=== PATIENT | male | born 1950 | race Caucasian/White ===

== ENCOUNTER 2017-02-20 21:30 | Inpatient (IN) | payer MEDICARE, MEDICAID ==
[2017-02-20] MEDS ORDERED: Sodium Chloride 0.9% 1,000 ML IV SCH ×2 (22:30→23:45)
--- NOTE | 2017-02-20 22:30 | EDM.PDOC ---
ED HPI GENERAL MEDICAL PROBLEM - General Chief Complaint: Syncope Stated Complaint: [facility] Time Seen by Provider: 02/20/17 22:30 Source of Information: Reports: Patient History Limitations: Reports: No Limitations - History of Present Illness INITIAL COMMENTS - FREE TEXT/NARRATIVE: pt had an episode when he became very liteheaded and he passed out and fell on the floor. He was not able to get up. Onset: Today, Other (pt was at the hosp earlier today for antibiotic therapy. ) Duration: Hour(s): Location: Reports: Lower Extremity, Left, Lower Extremity, Right Associated Symptoms: Reports: Syncope, Weakness Bilateral Feet Pain Score (Numeric/FACES): 3 - Related Data Allergies Allergy/AdvReac Type Severity Reaction Status Date / Time thimerosal Allergy Cannot Verified 02/20/17 22:57 Remember Home Meds: Home Meds Aspirin 1 tab PO DAILY 03/16/14 [History] Cilostazol [Pletal] 1 tab PO BID 03/16/14 [History] Insulin Glarg,Human.Rec.Analog [Lantus] 44 units SUBCUT DAILY 03/16/14 [History] Metoprolol Tartrate [Lopressor] 12.5 mg PO BID 03/16/14 [History] Pregabalin [Lyrica] 1 tab PO BID 03/16/14 [History] Valsartan [Diovan] 80 mg PO DAILY 03/16/14 [History] Ertapenem [INVanz] 1 gm IV Q24H 02/20/17 [History] Naproxen [Naprosyn] 500 mg PO BID 02/20/17 [History] Simvastatin [Zocor] 10 mg PO BEDTIME 02/20/17 [History] Past Medical History Cardiovascular History: Reports: Hypertension, [place], Other (See Below) Other Cardiovascular History: massive edema ankles Musculoskeletal History: Reports: Other (See Below) Other Musculoskeletal History: L leg trauma pto accident. ulcers on feet since 1995 Endocrine/Metabolic History: Reports: Diabetes, Type II Dermatologic History: Reports: Decubitus Ulcer, Venous Stasis Dermatitis, Other (See Below) Other Dermatologic History: ulcer debridement once a month with Dr Ko - Past Surgical History HEENT Surgical History: Reports: Adenoidectomy, Tonsillectomy Social & Family History - Tobacco Use Smoking Status *Q: Never Smoker Second Hand Smoke Exposure: No - Caffeine Use Caffeine Use: Reports: Soda - Alcohol Use Days Per Week of Alcohol Use: 0 - Recreational Drug Use Recreational Drug Use: No ED ROS GENERAL - Review of Systems Review Of Systems: See Below Constitutional: Reports: Weakness, Other (pt had a near syncopal episode. ) HEENT: Reports: No Symptoms Respiratory: Reports: No Symptoms Cardiovascular: Reports: No Symptoms, Lightheadedness, Syncope Endocrine: Reports: No Symptoms GI/Abdominal: Reports: No Symptoms : Reports: No Symptoms Musculoskeletal: Reports: No Symptoms Skin: Reports: No Symptoms Neurological: Reports: Syncope Psychiatric: Reports: No Symptoms Hematologic/Lymphatic: Reports: Anemia - Physical Exam Exam: See Below Text/Narrative:: Pt is a pale appearing pt who had a near syncopal episode at home. He was found to have a low pressure when ems arrived. He has alot of large ulcers on the bottom of his feet worse on the rt. These have recently gotten alot worse. He is on Iv Invance and has received 2 doses. Exam Limited By: No Limitations General Appearance: Alert, Moderate Distress, Other ( very pale appearing. pupils are equal and reactive. ) Ears: Normal TMs Nose: Normal Inspection Throat/Mouth: Normal Inspection Head Exam: Atraumatic Neck: Normal Inspection Respiratory/Chest: No Respiratory Distress Cardiovascular: Regular Rate, Rhythm, Tachycardia GI/Abdominal: Soft, Non-Tender (Male) Exam: Deferred Rectal (Males) Exam: Deferred Neuro Exam (Abbreviated): Alert, Oriented, Normal Cognition Back Exam: Normal Inspection Extremities: No: Other (Pt has multipleulcers on the bottom of both feet. ) Course - Vital Signs Last Recorded V/S: Last Vital Signs Temp 37.3 C 02/22/17 00:00 Pulse 99 02/22/17 00:00 Resp 18 02/22/17 00:00 BP 149/63 H 02/22/17 00:00 Pulse Ox 96 02/22/17 00:00 - Orders/Labs/Meds Orders: Medication Orders Acetaminophen (Tylenol) 650 mg PO Q4H PRN PRN Reason: Pain (Mild 1-3)/fever Aspirin (Ecotrin) 325 mg PO DAILY [facility] Last Admin: 02/21/17 09:16 Dose: 325 mg Bacitracin (Bacitracin Oint 1 Gm) 1 dose TOP BID PRN PRN Reason: Wound Care Last Admin: 02/21/17 20:03 Dose: 1 dose Admin: 02/21/17 09:22 Dose: 1 dose Cilostazol (Pletal) 100 mg PO BID [facility] Last Admin: 02/21/17 20:55 Dose: 100 mg Admin: 02/21/17 09:16 Dose: 100 mg Dextrose (Glutose 15) 15 gm PO ONETIME PRN PRN Reason: Hypoglycemia Dextrose/Water (Dextrose 50% In Water) 50 ml IV ONETIME PRN PRN Reason: Hypoglycemia Docusate Sodium (Colace) 100 mg PO BID PRN PRN Reason: Constipation Heparin Sodium (Porcine) (Heparin Sodium) 5,000 units SUBCUT Q12H [facility] Last Admin: 02/21/17 20:56 Dose: 5,000 units Heparin Sodium (Porcine) (Heparin Lock Flush 100 Units/Ml) 500 units FLUSH ASDIRECTED PRN PRN Reason: Keep Vein Open Aztreonam 500 mg/ Sodium (Chloride) 50 mls @ 100 mls/hr IV Q8H [facility] Last Admin: 02/22/17 01:16 Dose: 100 mls/hr Admin: 02/21/17 16:47 Dose: 100 mls/hr Admin: 02/21/17 09:36 Dose: 100 mls/hr Levofloxacin/Dextrose 250 mg/ (Premix) 50 mls @ 50 mls/hr IV Q48H [facility] Sodium Chloride (Normal Saline) 1,000 mls @ 125 mls/hr IV ASDIRECTED [facility] Last Admin: 02/22/17 00:43 Dose: 125 mls/hr Infusion: 02/22/17 00:34 Dose: 125 mls/hr Admin: 02/21/17 16:34 Dose: 125 mls/hr Infusion: 02/21/17 12:42 Dose: 125 mls/hr Admin: 02/21/17 04:42 Dose: 125 mls/hr Insulin Aspart (Novolog) 0 unit SUBCUT QIDACANDBED [facility] PRN Reason: Protocol Last Admin: 02/21/17 20:55 Dose: Not Given Admin: 02/21/17 16:40 Dose: Not Given Admin: 02/21/17 12:30 Dose: Not Given Admin: 02/21/17 08:29 Dose: Not Given Insulin Detemir (Levemir) 44 unit SUBCUT DAILY [facility] Last Admin: 02/21/17 09:17 Dose: 44 units Magnesium Hydroxide (Milk Of Magnesia) 30 ml PO Q12H PRN PRN Reason: Constipation Metoprolol Tartrate (Lopressor) 12.5 mg PO DAILY [facility] Last Admin: 02/21/17 09:16 Dose: 12.5 mg Ondansetron HCl (Zofran) 4 mg IV Q4H PRN PRN Reason: Nausea/Vomiting Oxycodone HCl (Oxycodone) 5 mg PO Q4H PRN PRN Reason: Pain (moderate 4-6) Polyethylene Glycol (Miralax) 17 gm PO DAILY PRN PRN Reason: Constipation Pregabalin (Lyrica) 75 mg PO DAILY [facility] Last Admin: 02/21/17 09:17 Dose: 75 mg Simvastatin (Zocor) 10 mg PO BEDTIME [facility] Last Admin: 02/21/17 20:55 Dose: 10 mg Sodium Chloride (Saline Flush) 10 ml FLUSH ASDIRECTED PRN PRN Reason: Keep Vein Open Labs: Laboratory Tests 02/20/17 02/20/17 02/20/17 Range/Units 22:24 22:24 22:29 WBC 14.9 H (4.5-11.0) K/uL RBC 2.67 L (4.30-5.90) M/uL Hgb 7.0 L (12.0-15.0) g/dL Hct 22.6 L (40.0-54.0) % MCV 85 (80-98) fL MCH 26 L (27-31) pg MCHC 31 L (32-36) % Plt Count 309 (150-400) K/uL Add Manual Diff Yes Neutrophils % (Manual) 82 H (36-66) % Band Neutrophils % 9 (5-11) % Lymphocytes % (Manual) 4 L (24-44) % Monocytes % (Manual) 5 (2-6) % Sodium 138 L (140-148) mmol/L Potassium 4.3 (3.6-5.2) mmol/L Chloride 107 (100-108) mmol/L Carbon Dioxide 20 L (21-32) mmol/L Anion Gap 15.3 H (5.0-14.0) mmol/L BUN 53 H (7-18) mg/dL Creatinine 5.5 H* (0.8-1.3) mg/dL Est Cr Clr Drug Dosing 14.89 mL/min Estimated GFR (MDRD) 11 L (>60) Glucose 241 H (74-106) mg/dL Lactic Acid 1.3 (0.4-2.0) mmol/L Calcium 7.3 L (8.5-10.1) mg/dL Total Bilirubin 1.1 H (0.2-1.0) mg/dL AST 20 (15-37) U/L ALT 9 L (12-78) U/L Alkaline Phosphatase 156 H (46-116) U/L Total Protein 7.6 (6.4-8.2) g/dL Albumin 1.5 L (3.4-5.0) g/dL Globulin 6.1 H (2.3-3.5) g/dL Albumin/Globulin Ratio 0.3 L (1.2-2.2) Blood Type Gel Antibody Screen Crossmatch 02/20/17 Range/Units 22:50 WBC (4.5-11.0) K/uL RBC (4.30-5.90) M/uL Hgb (12.0-15.0) g/dL Hct (40.0-54.0) % MCV (80-98) fL MCH (27-31) pg MCHC (32-36) % Plt Count (150-400) K/uL Add Manual Diff Neutrophils % (Manual) (36-66) % Band Neutrophils % (5-11) % Lymphocytes % (Manual) (24-44) % Monocytes % (Manual) (2-6) % Sodium (140-148) mmol/L Potassium (3.6-5.2) mmol/L Chloride (100-108) mmol/L Carbon Dioxide (21-32) mmol/L Anion Gap (5.0-14.0) mmol/L BUN (7-18) mg/dL Creatinine (0.8-1.3) mg/dL Est Cr Clr Drug Dosing mL/min Estimated GFR (MDRD) (>60) Glucose (74-106) mg/dL Lactic Acid (0.4-2.0) mmol/L Calcium (8.5-10.1) mg/dL Total Bilirubin (0.2-1.0) mg/dL AST (15-37) U/L ALT (12-78) U/L Alkaline Phosphatase (46-116) U/L Total Protein (6.4-8.2) g/dL Albumin (3.4-5.0) g/dL Globulin (2.3-3.5) g/dL Albumin/Globulin Ratio (1.2-2.2) Blood Type O POSITIVE Gel Antibody Screen Negative Crossmatch See Detail Meds: Medications Generic Name Dose Route Start Last Admin Trade Name Freq PRN Reason Stop Dose Admin Acetaminophen 650 mg 02/21/17 00:33 Tylenol PO Q4H PRN Pain (Mild 1-3)/fever Aspirin 325 mg 02/21/17 09:00 02/21/17 09:16 Ecotrin PO 325 mg DAILY [facility] Administration Bacitracin 1 dose 02/21/17 08:36 02/21/17 20:03 Bacitracin Oint 1 Gm TOP 1 dose BID PRN Administration Wound Care Cilostazol 100 mg 02/21/17 09:00 02/21/17 20:55 Pletal PO 100 mg BID [facility] Administration Dextrose 15 gm 02/21/17 00:33 Glutose 15 PO ONETIME PRN Hypoglycemia Dextrose/Water 50 ml 02/21/17 00:33 Dextrose 50% In Water IV ONETIME PRN Hypoglycemia Docusate Sodium 100 mg 02/21/17 00:33 Colace PO BID PRN Constipation Heparin Sodium (Porcine) 5,000 units 02/21/17 21:00 02/21/17 20:56 Heparin Sodium SUBCUT 5,000 units Q12H [facility] Administration Heparin Sodium (Porcine) 500 units 02/21/17 12:43 Heparin Lock Flush 100 Units/Ml FLUSH ASDIRECTED PRN Keep Vein Open Aztreonam 500 mg/ Sodium 50 mls @ 100 mls/hr 02/21/17 09:00 02/22/17 01:16 Chloride IV 100 mls/hr Q8H [facility] Administration Levofloxacin/Dextrose 250 mg/ 50 mls @ 50 mls/hr 02/23/17 00:30 Premix IV Q48H [facility] Sodium Chloride 1,000 mls @ 125 mls/hr 02/21/17 00:33 02/22/17 00:43 Normal Saline IV 125 mls/hr ASDIRECTED [facility] Administration Insulin Aspart 0 unit 02/21/17 07:00 02/21/17 20:55 Novolog SUBCUT Not Given QIDACANDBED [facility] Protocol Insulin Detemir 44 unit 02/21/17 09:00 02/21/17 09:17 Levemir SUBCUT 44 units DAILY [facility] Administration Magnesium Hydroxide 30 ml 02/21/17 00:33 Milk Of Magnesia PO Q12H PRN Constipation Metoprolol Tartrate 12.5 mg 02/21/17 09:00 02/21/17 09:16 Lopressor PO 12.5 mg DAILY [facility] Administration Ondansetron HCl 4 mg 02/21/17 00:33 Zofran IV Q4H PRN Nausea/Vomiting Oxycodone HCl 5 mg 02/21/17 00:33 Oxycodone PO Q4H PRN Pain (moderate 4-6) Polyethylene Glycol 17 gm 02/21/17 00:33 Miralax PO DAILY PRN Constipation Pregabalin 75 mg 02/21/17 09:00 02/21/17 09:17 Lyrica PO 75 mg DAILY [facility] Administration Simvastatin 10 mg 02/21/17 21:00 02/21/17 20:55 Zocor PO 10 mg BEDTIME [facility] Administration Sodium Chloride 10 ml 02/21/17 00:33 Saline Flush FLUSH ASDIRECTED PRN Keep Vein Open Discontinued Medications Generic Name Dose Route Start Last Admin Trade Name Freq PRN Reason Stop Dose Admin Heparin Sodium (Porcine) Confirm 02/21/17 11:21 02/21/17 13:19 Heparin Lock Flush 100 Units/Ml Administered 02/21/17 11:22 Not Given Dose 500 units .ROUTE .STK-MED ONE Sodium Chloride 1,000 mls @ 999 mls/hr 02/20/17 22:30 02/20/17 22:38 Normal Saline IV 999 mls/hr ASDIRECTED [facility] Administration Sodium Chloride 1,000 mls @ 500 mls/hr 02/20/17 23:45 02/20/17 23:41 Normal Saline IV 500 mls/hr ASDIRECTED [facility] Administration Aztreonam 1 gm/ Sodium 50 mls @ 100 mls/hr 02/21/17 00:33 02/21/17 01:13 Chloride IV 02/21/17 01:02 100 mls/hr ONETIME ONE Administration Levofloxacin/Dextrose 500 mg/ 100 mls @ 100 mls/hr 02/21/17 00:33 02/21/17 01 :51 Premix IV 02/21/17 01:32 100 mls/hr ONETIME ONE Administration Vancomycin HCl 1.5 gm/ Sodium 250 mls @ 166.667 mls/hr 02/21/17 01:00 02:56 Chloride IV 02/21/17 02:29 166.667 mls/hr NOW ONE Administration Magnesium Sulfate 2 gm/ Premix 50 mls @ 25 mls/hr 02/21/17 10:00 02/21/17 21: 59 IV 02/21/17 23:59 25 mls/hr Q6H [facility] Administration Lidocaine HCl Confirm 02/21/17 02:06 02/21/17 03:02 Xylocaine 2% Jelly Administered 02/21/17 02:07 10 ml Dose Administration 10 ml .ROUTE .STK-MED ONE Pregabalin 200 mg 02/21/17 09:00 Lyrica PO BID [facility] Vancomycin HCl 0 gm 02/21/17 01:00 Vancomycin IV .PHARMACY TO DOSE [facility] - Re-Assessments/Exams Free Text/Narrative Re-Assessment/Exam: 02/20/17 23:04 Pt had a creatine of 1.6 in November and it is now 5.5. His GFR is 11. He has a normal lactic acid. He was hypotensive today and had a near syncopal episode. He is anemic with a hg of 7/ Departure - Departure Time of Disposition: 23:06 Disposition: Admitted As Inpatient 68 Condition: Poor Clinical Impression: Sepsis, Foot ulcer with fat layer exposed, Renal insufficiency, Anemia - Discharge Information
[2017-02-21] MEDS ORDERED: Polyethylene Glycol 3350 Powder 17 GM Packet PO PRN (00:33)
[2017-02-21] MEDS ORDERED: Magnesium Hydroxide 400 MG/5 ML Susp 30 ML Cup PO PRN (00:33)
[2017-02-21] MEDS ORDERED: Docusate Sodium 100 MG Cap PO PRN (00:33)
[2017-02-21] MEDS ORDERED: oxyCODONE 5 MG Tab PO PRN (00:33)
[2017-02-21] MEDS ORDERED: Sodium Chloride 0.9% 10 ML Syringe FLUSH PRN (00:33)
[2017-02-21] MEDS ORDERED: 50% Dextrose in Water 50 ML Syringe IV PRN (00:33)
[2017-02-21] MEDS ORDERED: Levofloxacin/Dextrose 5%-Water 500 MG in Premix Bag 1 BAG IV ONE (00:33)
[2017-02-21] MEDS ORDERED: Glucose Gel 15 GM in 37.5 GM Tube PO PRN (00:33)
[2017-02-21] MEDS ORDERED: Ondansetron 4 MG/2 ML SDV IV PRN (00:33)
[2017-02-21] MEDS ORDERED: Acetaminophen 325 MG Tab PO PRN (00:33)
--- NOTE | 2017-02-21 00:38 | PCM.HP ---
H&P History of Present Illness - General Date of Service: 02/21/17 Admit Problem/Dx: Admission Diagnosis/Problem Admission Diagnosis/Problem Foot infection Source of Information: Patient, Old Records, Provider, RN Notes Reviewed History Limitations: Reports: No Limitations - History of Present Illness Initial Comments - Free Text/Narative: Mr. Butts is a 66-year-old gentleman was admitted through the emergency department with sepsis secondary to diabetic foot infection of his left foot. He is had a long-standing history of ulcers on both feet as well as a long- standing history of diabetes. He developed a new ulcer in the midportion of his left foot and has noted increased pain in the foot. He was seen and evaluated earlier in the week by Dr. Ko and since then has been receiving IV antibiotic therapy with ertapenem once daily as an outpatient. Despite this intervention has become progressively more weak and lightheaded. He denies fevers or chills but has had regular sweats. He came in today for his IV antibiotic infusion, after he got home became very weak and lightheaded passing out and falling to the floor. He was unable to get up from the floor and ambulance was called and he was brought to the emergency department for evaluation. On initial evaluation by ambulance crew he was found to be hypotensive, IV was started and he was given IV fluids. When he arrived in the emergency department had borderline blood pressure and has received further fluid since then with good response of blood pressure. Evaluation in the emergency department is shown evidence of infection in the foot with elevated white blood cell count. He's been found to be severely anemic with a hemoglobin of 7. Also found to have evidence of acute kidney injury with a creatinine of 5.5 and a GFR of 11. At baseline he has stage III chronic kidney disease based on most recent creatinine available from this summer. He reports that he did have a CT scan with IV contrast earlier this month and since then his urine output has diminished. He denies any evidence of active GI bleeding or urinary bleeding. He has been taking nonsteroidal therapy twice daily. - Related Data Allergies/Adverse Reactions: Allergies Allergy/AdvReac Type Severity Reaction Status Date / Time thimerosal Allergy Cannot Verified 02/20/17 22:57 Remember Home Medications: Home Meds Aspirin 1 tab PO DAILY 03/16/14 [History] Cilostazol [Pletal] 1 tab PO BID 03/16/14 [History] Insulin Glarg,Human.Rec.Analog [Lantus] 44 units SUBCUT DAILY 03/16/14 [History] Metoprolol Tartrate [Lopressor] 12.5 mg PO DAILY 03/16/14 [History] Pregabalin [Lyrica] 1 tab PO BID 03/16/14 [History] Valsartan [Diovan] 80 mg PO DAILY 03/16/14 [History] Ertapenem [INVanz] 1 gm IV Q24H 02/20/17 [History] Naproxen [Naprosyn] 500 mg PO BID 02/20/17 [History] Simvastatin [Zocor] 10 mg PO BEDTIME 02/20/17 [History] Past Medical History Cardiovascular History: Reports: Hypertension, [place], Other (See Below) Other Cardiovascular History: massive edema ankles Musculoskeletal History: Reports: Other (See Below) Other Musculoskeletal History: L leg trauma pto accident. ulcers on feet since 1995 Endocrine/Metabolic History: Reports: Diabetes, Type II Dermatologic History: Reports: Decubitus Ulcer, Venous Stasis Dermatitis, Other (See Below) Other Dermatologic History: ulcer debridement once a month with Dr Ko - Past Surgical History HEENT Surgical History: Reports: Adenoidectomy, Tonsillectomy Social & Family History - Tobacco Use Smoking Status *Q: Never Smoker Second Hand Smoke Exposure: No - Caffeine Use Caffeine Use: Reports: Soda - Alcohol Use Days Per Week of Alcohol Use: 0 - Recreational Drug Use Recreational Drug Use: No H&P Review of Systems - Review of Systems: Review Of Systems: See Below General: Reports: Weakness, Diaphoresis. Denies: Fever, Chills HEENT: Reports: No Symptoms Pulmonary: Reports: No Symptoms Cardiovascular: Reports: No Symptoms Gastrointestinal: Reports: No Symptoms Genitourinary: Reports: No Symptoms Musculoskeletal: Reports: No Symptoms Skin: Reports: Other (Diabetic foot ulcers both lower extremities) Psychiatric: Reports: No Symptoms Neurological: Reports: No Symptoms Hematologic/Lymphatic: Reports: No Symptoms Immunologic: Reports: No Symptoms Exam - Exam Exam: See Below - Vital Signs Vital Signs: Last Vital Signs Temp 98.8 F 02/20/17 21:33 Pulse 101 H 02/21/17 00:30 Resp 16 02/21/17 00:30 BP 139/73 02/21/17 00:30 Pulse Ox 100 02/21/17 00:30 Weight: 274 lb - Exam Quality Assessment: DVT Prophylaxis General: Alert, Cooperative, Mild Distress HEENT: Conjunctiva Clear, Hearing Intact, Normal Nasal Septum, Posterior Pharynx Clear, Pupils Equal. No: Mucosa Moist & [place] Neck: Supple, Trachea Midline, +2 Carotid Pulse wo Bruit Lungs: Clear to Auscultation, Normal Respiratory Effort Cardiovascular: Regular Rate, Regular Rhythm, Normal S1, Normal S2. No: Systolic Murmur, Diastolic Murmur GI/Abdominal Exam: Normal Bowel Sounds, Soft, Non-Tender, No Distention Back Exam: Normal Inspection, Full Range of Motion Extremities: Pedal Edema, Increased Warmth (Left foot), Redness, Other (At least 4 large ulcerations on the plantar aspect left foot he is sloughing skin from the posterior aspect of the foot and ankle. One ulcer noted plantar aspect of the right foot) - Patient Data Result Diagrams: 02/20/17 22:24 02/20/17 22:24 *Q Meaningful Use (ADM) - VTE *Q VTE Criteria *Q: VTE Mechanical Contraindications *Q: Bilateral Lower Edema VTE Pharmacological Contraindications *Q: Patient Scheduled Surgery - VTE Risk Assess *Q Each Risk Factor Represents 1 Point: Swollen Legs, Current, Obesity (BMI greater than 30), Sepsis, Less than 1 Month Total Score 1 Point Risk Factors: 3 Each Risk Factor Represents 2 Points: Age 60 - 74 Years Total Score 2 Point Risk Factors: 2 Each Risk Factor Represents 3 Points: None Total Score 3 Point Risk Factors: 0 Each Risk Factor Represents 5 Points: None Total Score 5 Point Risk Factors: 0 Venous Thromboembolism Risk Factor Score *Q: 5 - Stroke *Q Stroke Criteria *Q: - AMI *Q AMI Criteria *Q: Problem List Initiated/Reviewed/Updated: Yes Orders Last 24hrs: Active Orders 24 hr Category Date Time Status Patient Status [ADT] Routine ADT 02/21/17 00:33 Ordered Blood Glucose Check, Bedside [RC] QIDACANDBED Care 02/21/17 00:33 Active Cardiac Monitoring [RC] .As Directed Care 02/21/17 00:33 Active Communication Order [RC] ASDIRECTED Care 02/21/17 00:33 Active Diabetes Education [RC] Click to Edit Care 02/21/17 00:33 Active Intake and Output [RC] QSHIFT Care 02/21/17 00:33 Ordered Notify Provider Consults [RC] ASDIRECTED Care 02/21/17 00:33 Ordered Notify Provider Vital Signs [RC] ASDIRECTED Care 02/21/17 00:33 Ordered Notify Provider [RC] PRN Care 02/21/17 00:33 Ordered Oxygen Therapy [RC] PRN Care 02/21/17 00:33 Ordered Peripheral IV Care [RC] . DIRECTED Care 02/21/17 00:33 Ordered Up With Assistance [RC] ASDIRECTED Care 02/21/17 00:33 Ordered Up to Chair [RC] QID Care 02/21/17 00:33 Ordered Consult to Physician [CONS] Routine Cons 02/21/17 08:00 Ordered Nothing per Oral After Midnight Diet [DIET] Diet 02/21/17 Breakfast Ordered Foot wo Cont Lt [MR] Stat Exams 02/21/17 08:00 Ordered Peripheral IV Insertion Adult [OM.PC] Routine Oth 02/21/17 00:33 Ordered Resuscitation Status Routine Resus Stat 02/21/17 00:13 Ordered Assessment/Plan Comment:: ASSESSMENT AND PLAN DIABETIC INFECTION LEFT FOOT WITH SEPSIS-over the past few days is become progressively more weak and experienced a syncopal episode today. Initially hypotensive but has responded to IV fluid infusion. Multiple ulcers on the plantar aspect the left foot skin over the posterior aspect of the foot which is being sloughed. -Discontinue Invanz -Blood cultures pending -IV fluids for support of blood pressure and sepsis, he will be getting blood tonight and will hold on sepsis protocol now that blood pressure has stabilized and also in light of his acute kidney injury with minimal urine output -IV antibiotic therapy including vancomycin pharmacy to dose, levofloxacin 500 mg IV now then 250 mg every 48 hours, aztreonam 1 g IV now then 500 mg IV every 8 hours -Consult Dr. Ko for surgical opinion in a.m. -MRI of the left foot without contrast to evaluate for osteomyelitis ACUTE KIDNEY INJURY-he has known chronic kidney disease stage III as of last available creatinine and GFR earlier this summer. He reports his urine output has been diminished since he received contrast for CT scan in January. He has been taking nonsteroidal therapy with naproxen twice daily. -Hold naproxen and valsartan -Closely monitor urine output with Lopez catheter -Repeat labs in a.m. -If renal function does not improve he may require transfer to a tertiary care center ANEMIA-likely secondary to chronic disease, he denies any evidence of recent GI or blood loss. -2 units of blood are available -Transfuse 1 unit of blood now -Repeat hemoglobin level in a.m. MAINTENANCE ISSUES -DVT prophylaxis; hold on SCUDs because of edema and infection, hold on Lovenox pending surgical review -GI prophylaxis; not indicated -Lopez catheter; to closely monitor urine output -Nutrition; nothing by mouth until seen by Dr. Ko -Nicotine dependence; not required CODE STATUS-FULL CODE ADMISSION STATUS-patient will be admitted to inpatient status, expect at least a 2 night hospital stay for evaluation and management of problems as outlined above. At the time of this admission I do not reasonably expected evaluation and management of this problem will require more than a 96 hour hospital stay. DISPOSITION-anticipate discharge to home after the hospital stay. PRIMARY CARE PROVIDER-
[2017-02-21] MEDS ORDERED: Vancomycin 1 GM SDV IV SCH (01:00)
[2017-02-21] MEDS ORDERED: Lidocaine 2% Jelly 10 ML Urojet ONE (02:06)
[2017-02-21] MEDS: Sodium Chloride 0.9% 1,000 ML IV SCH ×2 (04:42→16:34)
[2017-02-21] MEDS: Insulin Aspart 100 Units/ML 3 ML Pen SUBCUT SCH ×4 (08:29→20:55)
[2017-02-21] MEDS ORDERED: Pregabalin 100 MG Cap PO SCH (09:00)
[2017-02-21] MEDS ORDERED: Insulin Detemir 100 Units/ML 3 ML Pen SUBCUT SCH ×2 (09:00)
--- NOTE | 2017-02-21 09:03 | PCM.PN ---
- General Info Date of Service: 02/21/17 Functional Status: Reports: Pain Controlled - Review of Systems General: Reports: Weakness. Denies: Fever Pulmonary: Denies: Shortness of Breath Musculoskeletal: Denies: Leg Pain Systems Review Comment:: No acute events overnight. Little bit sleepy but otherwise stable. Blood pressures have normalized and are even moderately hypertensive today. Hemoglobin is a little better with transfusion. He has not had any high fevers. Creatinine only mildly improved from yesterday down to 5.1. GFR is unchanged. Urine output has been greater than 30 mL per hour. No significant pain issues. Or extremity wound evaluated by Dr. Ko this morning. - Patient Data Vitals - Most Recent: Last Vital Signs Temp 36.4 C 02/21/17 08:00 Pulse 98 02/21/17 06:00 Resp 20 02/21/17 08:00 BP 151/70 H 02/21/17 08:00 Pulse Ox 96 02/21/17 08:00 Weight - Most Recent: 124.284 kg I&O - Last 24 Hours: Intake & Output 02/20/17 02/21/17 02/21/17 22:59 06:59 14:59 Intake Total 1536 Output Total 850 Balance 686 Lab Results Last 24 Hours: Laboratory Results - last 24 hr 02/21/17 02/21/17 02/21/17 Range/Units 02:40 05:11 05:11 WBC 13.2 H (4.5-11.0) K/uL RBC 2.76 L (4.30-5.90) M/uL Hgb 7.5 L (12.0-15.0) g/dL Hct 23.4 L (40.0-54.0) % MCV 85 (80-98) fL MCH 27 (27-31) pg MCHC 32 (32-36) % Plt Count 299 (150-400) K/uL Neut % (Auto) 75 H (36-66) % Lymph % (Auto) 13 L (24-44) % [place] % (Auto) 11 H (2-6) % Eos % (Auto) 1 L (2-4) % Baso % (Auto) 0 (0-1) % Sodium 139 L (140-148) mmol/L Potassium 4.3 (3.6-5.2) mmol/L Chloride 109 H (100-108) mmol/L Carbon Dioxide 21 (21-32) mmol/L Anion Gap 13.3 (5.0-14.0) mmol/L BUN 52 H (7-18) mg/dL Creatinine 5.1 H* (0.8-1.3) mg/dL Est Cr Clr Drug Dosing TNP Estimated GFR (MDRD) 11 L (>60) Glucose 175 H (74-106) mg/dL Calcium 7.1 L (8.5-10.1) mg/dL Magnesium 1.1 L (1.8-2.4) mg/dL Urine Color Yellow Urine Appearance Cloudy Urine pH 5.0 (4.5-8.0) Ur Specific Emerson 1.020 (1.008-1.030) Urine Protein Trace (NEGATIVE) mg/dL Urine Glucose (UA) Normal (NEGATIVE) mg/dL Urine Ketones Negative (NEGATIVE) mg/dL Urine Occult Blood Moderate (NEGATIVE) Urine Nitrite Negative (NEGAITVE) Urine Bilirubin Small (NEGATIVE) Urine Urobilinogen 1 (NORMAL) mg/dL Ur Leukocyte Esterase Negative (NEGATIVE) Urine RBC 5-10 H (0-5) Urine WBC 0-5 (0-5) Ur Epithelial Cells Few Amorphous Sediment Many Urine Bacteria Many Urine Mucus Not seen Med Orders - Current: Current Medications Acetaminophen (Tylenol) 650 mg PO Q4H PRN PRN Reason: Pain (Mild 1-3)/fever Aspirin (Ecotrin) 325 mg PO DAILY [facility] Bacitracin (Bacitracin Oint 1 Gm) 1 dose TOP BID PRN PRN Reason: Wound Care Cilostazol (Pletal) 100 mg PO BID [facility] Dextrose (Glutose 15) 15 gm PO ONETIME PRN PRN Reason: Hypoglycemia Dextrose/Water (Dextrose 50% In Water) 50 ml IV ONETIME PRN PRN Reason: Hypoglycemia Docusate Sodium (Colace) 100 mg PO BID PRN PRN Reason: Constipation Aztreonam 500 mg/ Sodium (Chloride) 50 mls @ 100 mls/hr IV Q8H [facility] Levofloxacin/Dextrose 250 mg/ (Premix) 50 mls @ 50 mls/hr IV Q48H [facility] Sodium Chloride (Normal Saline) 1,000 mls @ 125 mls/hr IV ASDIRECTED [facility] Last Admin: 02/21/17 04:42 Dose: 125 mls/hr Magnesium Sulfate 2 gm/ Premix 50 mls @ 25 mls/hr IV Q6H [facility] Stop: 02/21/17 23:59 Insulin Aspart (Novolog) 0 unit SUBCUT QIDACANDBED ALEXIA PRN Reason: Protocol Last Admin: 02/21/17 08:29 Dose: Not Given Insulin Detemir (Levemir) 44 unit SUBCUT DAILY [facility] Magnesium Hydroxide (Milk Of Magnesia) 30 ml PO Q12H PRN PRN Reason: Constipation Metoprolol Tartrate (Lopressor) 12.5 mg PO DAILY [facility] Ondansetron HCl (Zofran) 4 mg IV Q4H PRN PRN Reason: Nausea/Vomiting Oxycodone HCl (Oxycodone) 5 mg PO Q4H PRN PRN Reason: Pain (moderate 4-6) Polyethylene Glycol (Miralax) 17 gm PO DAILY PRN PRN Reason: Constipation Pregabalin (Lyrica) 75 mg PO DAILY [facility] Simvastatin (Zocor) 10 mg PO BEDTIME [facility] Sodium Chloride (Saline Flush) 10 ml FLUSH ASDIRECTED PRN PRN Reason: Keep Vein Open Discontinued Medications Sodium Chloride (Normal Saline) 1,000 mls @ 999 mls/hr IV ASDIRECTED [facility] Last Admin: 02/20/17 22:38 Dose: 999 mls/hr Sodium Chloride (Normal Saline) 1,000 mls @ 500 mls/hr IV ASDIRECTED [facility] Last Admin: 02/20/17 23:41 Dose: 500 mls/hr Aztreonam 1 gm/ Sodium (Chloride) 50 mls @ 100 mls/hr IV ONETIME ONE Stop: 02/21/17 01:02 Last Admin: 02/21/17 01:13 Dose: 100 mls/hr Levofloxacin/Dextrose 500 mg/ (Premix) 100 mls @ 100 mls/hr IV ONETIME ONE Stop: 02/21/17 01:32 Last Admin: 02/21/17 01:51 Dose: 100 mls/hr Vancomycin HCl 1.5 gm/ Sodium (Chloride) 250 mls @ 166.667 mls/hr IV NOW ONE Stop: 02/21/17 02:29 Last Admin: 02/21/17 02:56 Dose: 166.667 mls/hr Lidocaine HCl (Xylocaine 2% Jelly) Confirm Administered Dose 10 ml .ROUTE .[facility] ONE Stop: 02/21/17 02:07 Last Admin: 02/21/17 03:02 Dose: 10 ml Pregabalin (Lyrica) 200 mg PO BID ALEXIA Vancomycin HCl (Vancomycin) 0 gm IV .PHARMACY TO DOSE ALEXIA - Exam Quality Assessment: No: Supplemental Oxygen General: Alert, Oriented, Cooperative, No Acute Distress Neck: Supple Lungs: Clear to Auscultation, Normal Respiratory Effort Cardiovascular: Regular Rate, Regular Rhythm, Murmurs GI/Abdominal Exam: Normal Bowel Sounds, Soft, No Distention Extremities: Pedal Edema, Other (large ulcerated area left plantar surface. Right foot wrapped with kerlix, mild ss drainage noted posteromedially) Skin: Warm, Dry, Other (both lower legs with ichthyosis ) Psy/Mental Status: Alert, Normal Affect - Problem List Review Problem List Initiated/Reviewed/Updated: Yes - My Orders Last 24 Hours: My Active Orders 02/21/17 08:22 CV Ankle Brachial Index (JOSIANE) [US] Routine 02/21/17 08:25 VL Duplex Lwr Ext Art Comp Bi [US] Routine 02/21/17 09:00 Pregabalin [Lyrica] 75 mg PO DAILY 02/21/17 10:00 Magnesium Sulfate/Water [Magnesium Sulfate 2 GM in Water 50 ML] 2 gm Premix Bag 1 bag IV Q6H 02/21/17 Breakfast Consistent Carbohydrate Diet [DIET] 02/22/17 05:00 BASIC METABOLIC PANEL,BMP [CHEM] Timed CBC W/O DIFF,HEMOGRAM [HEME] Timed (1) - Plan Plan:: ASSESSMENT AND PLAN DIABETIC INFECTION LEFT FOOT WITH SEPSIS - MRI suggests osteomyelitis involving the base of the fifth metatarsal. Cultures are pending at this time. Wound consult has been initiated. There is concern for peripheral vascular disease contributing to infection and poor healing. -Blood cultures pending -IV fluids for support of blood pressure and sepsis, he will be getting blood tonight and will hold on sepsis protocol now that blood pressure has stabilized and also in light of his acute kidney injury with minimal urine output -IV antibiotic therapy including vancomycin, levofloxacin 500 mg IV now then 250 mg every 48 hours, aztreonam 1 g IV now then 500 mg IV every 8 hours -Consult Dr. Ko for surgical management PERIPHERAL VASCULAR DISEASE - arterial ultrasound showed probable stenosis of the popliteal artery with a significant increase in velocity and transition to monophasic waveforms at this level on the left. Also probable stenosis on the right though not as severe. With his significant elevation in creatinine further workup/intervention may be difficult at this time. -Obtain results of CT angiogram performed [place] the [place] last week -Consider referral to vascular surgery ACUTE KIDNEY INJURY - he has known chronic kidney disease stage III with GFR around 60. GFR today is still 11. Could be multifactorial with recent contrast dye, MAYA inhibitor, ARB and component of dehydration as well as infection. -Hold naproxen and valsartan -Closely monitor urine output with Lopez catheter -Repeat labs in a.m. -If renal function does not improve he may require transfer to a tertiary care center ANEMIA - likely secondary to chronic disease, he denies any evidence of recent GI or blood loss. He has received 1 unit of blood via transfusion. -Repeat hemoglobin level in a.m. INSULIN-DEPENDENT DIABETES MELLITUS - sugars acceptable so far. -Continue home regimen MAINTENANCE ISSUES -DVT prophylaxis; heparin -GI prophylaxis; not indicated -Lopez catheter; to closely monitor urine output -Nutrition; consistent carbohydrate diet DISPOSITION - anticipate transfer to tertiary care center in the morning unless there is significant improvement overnight. He will need nephrology evaluation as well as vascular surgery consultation with significant stenosis on the left. Freddie Rae MD
[2017-02-21] MEDS: Aspirin 325 MG Tab.EC PO SCH (09:16)
[2017-02-21] MEDS: Metoprolol Tartrate 25 MG Tab PO SCH (09:16)
[2017-02-21] MEDS: Pregabalin 75 MG Cap PO SCH (09:17)
[2017-02-21] MEDS: Bacitracin Oint 1 GM U/D Packet TOP PRN ×2 (09:22→20:03)
[2017-02-21] MEDS: Magnesium Sulfate/Water 2 GM in Premix Bag 1 BAG IV SCH ×3 (09:36→21:59)
--- NOTE | 2017-02-21 09:55 | CR ---
Portable chest There is a [id number] catheter on the left. The tip descends down into the SVC. The heart and vasc ular structures are within normal limits. There are no infiltrates or effusions. Impression: 1. No acute findings.
--- NOTE | 2017-02-21 13:13 | MR ---
Left foot MRI. History: Progressing ulcer. Evaluate for osteomyelitis. Technique: The foot was imaged in the axial, coronal, and sagittal planes utilizing T1, T2, and T2 wi th fat saturation. Comparison: December 2011. There is a deep penetrating ulcer at the lateral plantar aspect of the foot. There is diffuse edema w ithin the soft tissues consistent with advanced cellulitis. There is low signal involving the lateral base of the fifth metatarsal with cortical destruction. There is significant marrow edema. This port ion of the fifth metatarsal underlies the penetrating ulcer. The finding is most consistent with oste omyelitis. No additional sites of osteomyelitis are seen. There is diffuse soft tissue edema througho ut the foot. There is also edema involving several muscles along the plantar aspect of the foot consi stent with myositis. There are no findings of abscess. There are chronic erosive changes at the first MTP joint with edema. Erosive changes are also demonstrated at the second-fourth MTP joints. Impression: 1. Deep penetrating ulcer involving the plantar lateral aspect of the foot. The depth of the ulcer ap proaches the base of the fifth metatarsal where there is evidence of loss of the cortex of the bone a s well as significant edema within the fifth metatarsal. The findings are consistent with osteomyelit is. 2. Diffuse cellulitis as well as myositis.
[2017-02-21] MEDS: Heparin Sodium 5,000 Units/ML Vial SUBCUT SCH (20:56)
[2017-02-21] MEDS ORDERED: Simvastatin 20 MG Tab PO SCH (21:00)
[2017-02-22] MEDS: Sodium Chloride 0.9% 1,000 ML IV SCH (00:43)
[2017-02-22] MEDS ORDERED: Bacitracin Oint 28.35 GM Tube TOP PRN (07:14)
[2017-02-22 08:05] VITALS: BP 159/72
--- NOTE | 2017-02-22 08:48 | US ---
Bilateral lower extremity arterial Doppler. Right lower extremity: There is scattered intermittent plaque. Biphasic waveforms are demonstrated throughout the lower extr emity. There is a focal area of velocity acceleration involving the posterior tibial artery measuring 162 cm/s. The peroneal artery is nonvisualized. The dorsalis pedis is patent. Left lower extremity: There is scattered plaque. Biphasic waveforms are demonstrated from the common femoral artery extendi ng through the distal superficial femoral artery. Monophasic waveforms are demonstrated distally. The re is a focal velocity acceleration within the popliteal artery measuring 205 cm/s. The posterior tib ial and dorsalis pedis arteries are patent. Impression: 1. Focal stenosis of the left popliteal artery. 2. Evidence for possible stenosis of the right posterior tibial artery. 3. Nonvisualized right peroneal artery.
[2017-02-22] MEDS ORDERED: Insulin Detemir 100 Units/ML 3 ML Pen SUBCUT SCH (09:00)
--- NOTE | 2017-02-22 09:10 | PCM.DCSUM1 ---
Discharge Summary - Hospital Course Brief History: 66-year-old male with history of stage III chronic kidney disease , insulin-dependent diabetes and chronic poorly healing diabetic foot ulcers who was recently started on antibiotics with concern for osteomyelitis who presented to the emergency room with weakness. Workup in the emergency room suggested sepsis, probable diabetic foot infection as well as acute kidney injury with a creatinine of 5.5. He was admitted to the intensive care unit for management. - Discharge Data Discharge Date: 02/22/17 Discharge Disposition: DC/Tfer to Acute Hospital 02 Condition: Poor - Discharge Diagnosis/Problem(s) (1) Osteomyelitis of left foot SNOMED Code(s): 96647470 ICD Code: M86.9 - OSTEOMYELITIS, UNSPECIFIED Status: Acute Current Visit : Yes Qualifiers: Osteomyelitis type: subacute Qualified Code(s): M86.272 - Subacute osteomyelitis, left ankle and foot (2) Acute kidney injury superimposed on chronic kidney disease SNOMED Code(s): 18645451 ICD Code: N17.9 - ACUTE KIDNEY FAILURE, UNSPECIFIED; N18.9 - CHRONIC KIDNEY DISEASE, UNSPECIFIED Status: Acute Current Visit: Yes (3) Diabetes mellitus, insulin dependent (IDDM), controlled SNOMED Code(s): 62861436 ICD Code: E11.9 - TYPE 2 DIABETES MELLITUS WITHOUT COMPLICATIONS; 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 Status: Chronic Current Visit: Yes (4) Peripheral vascular disease in diabetes mellitus SNOMED Code(s): 92163245 ICD Code: E11.51 - TYPE 2 DIABETES W DIABETIC PERIPHERAL ANGIOPATH W/O GANGRENE Status: Acute Current Visit: Yes (5) Diabetic foot ulcer SNOMED Code(s): 581482708 ICD Code: E11.621 - TYPE 2 DIABETES MELLITUS WITH FOOT ULCER; L97.509 - NON- PRESSURE CHRONIC ULCER OTH PRT UNSP FOOT W UNSP SEVERITY Status: Acute Current Visit: No (6) Sepsis SNOMED Code(s): 97439687 ICD Code: A41.9 - SEPSIS, UNSPECIFIED ORGANISM Status: Acute Current Visit: Yes Qualifiers: Sepsis type: sepsis due to unspecified organism Qualified Code(s): A41.9 - Sepsis, unspecified organism - Patient Summary/Data Consults: Consultations 02/21/17 08:00 Consult to Physician [CONS] Routine Consulting Provider: Josh Ko Call Completed to Consulting Physician: Yes Reason for Consult: Diabetic foot infection left foot, several ulcers Labs Pending at D/C: Final results of blood cultures which are negative at approximately 36 hours Hospital Course: Mac presented to the emergency room with generalized weakness. He had recently been started on ertapenem to manage presumed osteomyelitis of the left foot. He has been working with our social media content specialist to manage chronic but poorly healing diabetic foot ulcers with left foot more troublesome than the right. Workup in the emergency room was concerning for sepsis and osteomyelitis was the concerning source for infection. He was provided IV fluid bolus but did not receive the full sepsis protocol with concern for volume overload in the setting of acute kidney injury. He was empirically started on vancomycin, aztreonam and levofloxacin since he had been on ertapenem as an outpatient. Osteomyelitis was confirmed with an MRI of the left foot the morning after admission. The MRI showed osteomyelitis and significant edema around the base of the fifth metatarsal. There is also overlying cellulitis. There has been concern for peripheral vascular disease and he did have a CT angiogram of the left leg done at the [facility] a couple of weeks ago but we have been unable to obtain these imaging results. We did perform a vascular ultrasound of the left leg and there was a significant increase in the velocity at the level of the proximal popliteal artery. After this significant increase the waveform went from biphasic to monophasic. An arterial pulse was able to be identified down to the level of the dorsalis pedis but it was monophasic and difficult to evaluate as the artery progressed more distally. Blood cultures have been negative so far. We did not obtain any wound cultures and no debridement or intervention was done on the foot other than wound changes and local wound care. He has not had any fevers and his sepsis resolved quickly. Regarding his renal failure, his creatinine at the time of presentation was 5.5 with a baseline closer to 1.3-1.5. He was provided IV fluids and did receive 1 unit of packed red blood cells as discussed below. The morning after admission his creatinine has decreased slightly down 5.1 and on the second day of hospitalization his creatinine is down to 4.3. Initially his urine output was on the slow side but over the second 24 hours of the hospital stay he has produced 4.5 L of urine. His electrolytes are normal and I do not find any acute indication for dialysis at this time. I believe his kidney failure may be multifactorial with potential contribution from IV contrast a couple of weeks ago, nonsteroidal anti-inflammatory use, angiotensin receptor paola use as well as dehydration and sepsis. At the time of presentation his hemoglobin was 7 and he did receive 1 unit of blood. His hemoglobin is 7.8 on the day of discharge. We elected to avoid additional transfusions to avoid potential volume overload with his poor renal function. With his acute kidney injury and very poor kidney function further complicated by what is suspected to be severe peripheral vascular disease as well as osteomyelitis distal to the most impressive peripheral vascular disease I believe he would benefit from a higher level of care. He'll benefit from evaluation by nephrology as well as by vascular surgery. My concern is that it will be difficult to heal this infection and the ulcers with poor blood flow distal to the stenosis on the left side. This situation is made more difficult by the combination of need for intervention as well as the poor kidney function which will limit the use of IV contrast for angiogram evaluation. The patient is young and has an active lifestyle prior to being hospitalized and would benefit from urgent evaluation and every effort to avoid amputation if at all possible. He does understand that amputation is a possibility. He'll be transferred to [facility] in [place] for admission and subspecialty consultation. MRI images of the left foot as well as the peripheral vascular ultrasound images have been pushed through the PACS system to [facility]. - Patient Instructions Diet: Diabetic Diet Activity: Bedrest Notify Provider of: Fever, Increased Pain, Nausea and/or Vomiting Other/Special Instructions: 1. You were in the hospital for management of acute kidney injury, osteomyelitis of the left foot with sepsis and peripheral vascular disease. With your severe renal failure as well as the peripheral vascular disease and osteomyelitis I recommend transfer to a higher level of care for subspecialty evaluation and management. He will be transferred to [facility] in [place] and admitted under Dr. Camejo's care and he will facilitate subspecialty evaluation. - Discharge Plan Home Medications: Home Meds Aspirin 1 tab PO DAILY 03/16/14 [History] Cilostazol [Pletal] 1 tab PO BID 03/16/14 [History] Insulin Glarg,Human.Rec.Analog [Lantus] 44 units SUBCUT DAILY 03/16/14 [History] Metoprolol Tartrate [Lopressor] 12.5 mg PO BID 03/16/14 [History] Pregabalin [Lyrica] 1 tab PO BID 03/16/14 [History] Valsartan [Diovan] 80 mg PO DAILY 03/16/14 [History] Ertapenem [INVanz] 1 gm IV Q24H 02/20/17 [History] Simvastatin [Zocor] 10 mg PO BEDTIME 02/20/17 [History] Patient Handouts: Bone and Joint Infections, Adult, Vancomycin injection Referrals: PCP,None [Primary Care Provider] - - Discharge Summary/Plan Comment DC Time >30 min.: Yes (60 - transfer to [facility]) - Patient Data Vitals - Most Recent: Last Vital Signs Temp 36.4 C 02/22/17 07:55 Pulse 103 H 02/22/17 04:00 Resp 20 02/22/17 07:55 BP 159/72 H 02/22/17 07:55 Pulse Ox 95 02/22/17 07:55 Weight - Most Recent: 124.284 kg I&O - Last 24 hours: Intake & Output 02/21/17 02/22/17 02/22/17 22:59 06:59 14:59 Intake Total 1360 1598 Output Total 1300 2350 350 Balance 60 -752 -350 Lab Results - Last 24 hrs: Laboratory Results - last 24 hr 02/22/17 02/22/17 Range/Units 05:00 05:00 WBC 10.1 (4.5-11.0) K/uL RBC 2.97 L (4.30-5.90) M/uL Hgb 7.8 L (12.0-15.0) g/dL Hct 25.1 L (40.0-54.0) % MCV 85 (80-98) fL MCH 26 L (27-31) pg MCHC 31 L (32-36) % Plt Count 332 (150-400) K/uL Sodium 144 (140-148) mmol/L Potassium 4.1 (3.6-5.2) mmol/L Chloride 112 H (100-108) mmol/L Carbon Dioxide 22 (21-32) mmol/L Anion Gap 14.1 H (5.0-14.0) mmol/L BUN 49 H (7-18) mg/dL Creatinine 4.3 H* (0.8-1.3) mg/dL Est Cr Clr Drug Dosing 19.08 mL/min Estimated GFR (MDRD) 14 L (>60) Glucose 84 (74-106) mg/dL Calcium 7.3 L (8.5-10.1) mg/dL Med Orders - Current: Current Medications Acetaminophen (Tylenol) 650 mg PO Q4H PRN PRN Reason: Pain (Mild 1-3)/fever Aspirin (Ecotrin) 325 mg PO DAILY [facility] Last Admin: 02/21/17 09:16 Dose: 325 mg Bacitracin (Bacitracin Oint) 0 gm TOP BID PRN PRN Reason: Wound Care Last Admin: 02/22/17 08:23 Dose: 1 dose Cilostazol (Pletal) 100 mg PO BID [facility] Last Admin: 02/21/17 20:55 Dose: 100 mg Dextrose (Glutose 15) 15 gm PO ONETIME PRN PRN Reason: Hypoglycemia Dextrose/Water (Dextrose 50% In Water) 50 ml IV ONETIME PRN PRN Reason: Hypoglycemia Docusate Sodium (Colace) 100 mg PO BID PRN PRN Reason: Constipation Heparin Sodium (Porcine) (Heparin Sodium) 5,000 units SUBCUT Q12H [facility] Last Admin: 02/21/17 20:56 Dose: 5,000 units Heparin Sodium (Porcine) (Heparin Lock Flush 100 Units/Ml) 500 units FLUSH ASDIRECTED PRN PRN Reason: Keep Vein Open Aztreonam 500 mg/ Sodium (Chloride) 50 mls @ 100 mls/hr IV Q8H [facility] Last Admin: 02/22/17 08:26 Dose: 100 mls/hr Levofloxacin/Dextrose 250 mg/ (Premix) 50 mls @ 50 mls/hr IV Q48H [facility] Sodium Chloride (Normal Saline) 1,000 mls @ 125 mls/hr IV ASDIRECTED [facility] Last Admin: 02/22/17 00:43 Dose: 125 mls/hr Insulin Aspart (Novolog) 0 unit SUBCUT QIDACANDBED [facility] PRN Reason: Protocol Last Admin: 02/21/17 20:55 Dose: Not Given Insulin Detemir (Levemir) 22 unit SUBCUT DAILY [facility] Magnesium Hydroxide (Milk Of Magnesia) 30 ml PO Q12H PRN PRN Reason: Constipation Metoprolol Tartrate (Lopressor) 12.5 mg PO DAILY [facility] Last Admin: 02/21/17 09:16 Dose: 12.5 mg Ondansetron HCl (Zofran) 4 mg IV Q4H PRN PRN Reason: Nausea/Vomiting Oxycodone HCl (Oxycodone) 5 mg PO Q4H PRN PRN Reason: Pain (moderate 4-6) Polyethylene Glycol (Miralax) 17 gm PO DAILY PRN PRN Reason: Constipation Pregabalin (Lyrica) 75 mg PO DAILY [facility] Last Admin: 02/21/17 09:17 Dose: 75 mg Simvastatin (Zocor) 10 mg PO BEDTIME [facility] Last Admin: 02/21/17 20:55 Dose: 10 mg Sodium Chloride (Saline Flush) 10 ml FLUSH ASDIRECTED PRN PRN Reason: Keep Vein Open Discontinued Medications Bacitracin (Bacitracin Oint 1 Gm) 1 dose TOP BID PRN PRN Reason: Wound Care Last Admin: 02/21/17 20:03 Dose: 1 dose Heparin Sodium (Porcine) (Heparin Lock Flush 100 Units/Ml) Confirm Administered Dose 500 units .ROUTE .[facility]-MED ONE Stop: 02/21/17 11:22 Last Admin: 02/21/17 13:19 Dose: Not Given Sodium Chloride (Normal Saline) 1,000 mls @ 999 mls/hr IV ASDIRECTED [facility] Last Admin: 02/20/17 22:38 Dose: 999 mls/hr Sodium Chloride (Normal Saline) 1,000 mls @ 500 mls/hr IV ASDIRECTED [facility] Last Admin: 02/20/17 23:41 Dose: 500 mls/hr Aztreonam 1 gm/ Sodium (Chloride) 50 mls @ 100 mls/hr IV ONETIME ONE Stop: 02/21/17 01:02 Last Admin: 02/21/17 01:13 Dose: 100 mls/hr Levofloxacin/Dextrose 500 mg/ (Premix) 100 mls @ 100 mls/hr IV ONETIME ONE Stop: 02/21/17 01:32 Last Admin: 02/21/17 01:51 Dose: 100 mls/hr Vancomycin HCl 1.5 gm/ Sodium (Chloride) 250 mls @ 166.667 mls/hr IV NOW ONE Stop: 02/21/17 02:29 Last Admin: 02/21/17 02:56 Dose: 166.667 mls/hr Magnesium Sulfate 2 gm/ Premix 50 mls @ 25 mls/hr IV Q6H [facility] Stop: 02/21/17 23:59 Last Admin: 02/21/17 21:59 Dose: 25 mls/hr Insulin Detemir (Levemir) 44 unit SUBCUT DAILY [facility] Last Admin: 02/21/17 09:17 Dose: 44 units Lidocaine HCl (Xylocaine 2% Jelly) Confirm Administered Dose 10 ml .ROUTE .[facility] ONE Stop: 02/21/17 02:07 Last Admin: 02/21/17 03:02 Dose: 10 ml Pregabalin (Lyrica) 200 mg PO BID [facility] Vancomycin HCl (Vancomycin) 0 gm IV .PHARMACY TO DOSE ALEXIA *Q Meaningful Use (DIS) - VTE *Q VTE Criteria *Q: VTE Mechanical Contraindications *Q: Bilateral Lower Edema VTE Pharmacological Contraindications *Q: Patient Scheduled Surgery - Stroke *Q Stroke Criteria *Q: - AMI *Q AMI Criteria *Q:
[2017-02-22] MEDS: Metoprolol Tartrate 25 MG Tab PO SCH (09:57)
[2017-02-22] MEDS: Aspirin 325 MG Tab.EC PO SCH (09:59)
[2017-02-22] MEDS: Heparin Sodium 5,000 Units/ML Vial SUBCUT SCH (10:02)
[2017-02-22] MEDS: Pregabalin 75 MG Cap PO SCH (10:05)
[2017-02-22] MEDS: Insulin Aspart 100 Units/ML 3 ML Pen SUBCUT SCH (10:17)
[2017-02-23] MEDS ORDERED: Levofloxacin/Dextrose 5%-Water 250 MG in Premix Bag 1 BAG IV SCH (00:30)
--- NOTE | 2017-02-25 12:43 | PCM.SN ---
- Free Text/Narrative Note: Late Entry for 02/21/17 I did speak to the [place] MOD on February 21 prior to transfer to [facility]. They were unable to accommodate transfer due to the complexity of the patient and lack of an ICU at their facility. They were agreeable to a transfer to a higher level of care. [facility] was chosen because of the availability of necessary consultants including vascular surgery, nephrology and infectious disease. Freddie Rae MD
[2017-03-08] MEDS ORDERED: Lidocaine 2% Jelly 10 ML Urojet MUCMEM ONE (21:04)
== END 2017-02-22 10:58 | DRG 872 ==
LOC: JP.ED 21:30 → JP.ICU 02-21 00:05
PROVIDERS: ADMIT Hospitalist; ATTEND Internal Medicine
PROC: 30233N1 Transfusion of Nonautologous Red Blood Cells into Peripheral Vein, Percutaneous Approach (ICD-10-PCS; principal; 2017-02-21)
DX: A41.9 Sepsis, unspecified organism (principal); M86.272 Subacute osteomyelitis, left ankle and foot; N17.9 Acute kidney failure, unspecified; L03.116 Cellulitis of left lower limb; E11.51 Type 2 diabetes mellitus with diabetic peripheral angiopathy without gangrene; E11.621 Type 2 diabetes mellitus with foot ulcer; L97.522 Non-pressure chronic ulcer of other part of left foot with fat layer exposed; L97.519 Non-pressure chronic ulcer of other part of right foot with unspecified severity; R65.20 Severe sepsis without septic shock; Z79.4 Long term (current) use of insulin; I12.9 Hypertensive chronic kidney disease with stage 1 through stage 4 chronic kidney disease, or unspecified chronic kidney disease; R53.1 Weakness; E11.22 Type 2 diabetes mellitus with diabetic chronic kidney disease; R42 Dizziness and giddiness; N18.3 Chronic kidney disease, stage 3 (moderate); D63.1 Anemia in chronic kidney disease; W19.XXXA Unspecified fall, initial encounter; Y92.009 Unspecified place in unspecified non-institutional (private) residence as the place of occurrence of the external cause; I25.2 Old myocardial infarction; R55 Syncope and collapse; Z79.82 Long term (current) use of aspirin; Z88.8 Allergy status to other drugs, medicaments and biological substances
CPT/HCPCS: 36415; 71010 ×2; 80053; 83605; 85025; 87040 ×2; 93005; 96360; 96361; 99285; J7040 ×2; 36430; 73718-26-LT; 73718-LT; 80048; 81001; 82962; 83735; 85027; 86850; 86900; 86901; 86920; 86922; 93010; 93925-26; 93925-50; 96374; A9270-GY; J1335; J1642; J1644; J1956; J3370; J3475; J3490; J7030; J7050; P9016; S0073

== ENCOUNTER 2017-04-04 21:07 | Emergency (ER) | payer MEDICARE, MEDICAID ==
--- NOTE | 2017-04-04 22:03 | EDM.PDOC ---
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 Tonight he was in a wheelchair and return for something and fell landing on the stump. Since that time it has blood through 2 large compression dressings. No injuries elsewhere. He feels lightheaded and somewhat hypotensive but not tachycardic. Onset: Today Location: Reports: Lower Extremity, Left Severity: Moderate Associated Symptoms: Reports: Weakness. Denies: Shortness of Breath - Related Data Allergies Allergy/AdvReac Type Severity Reaction Status Date / Time morphine Allergy Nausea and Verified 04/04/17 22:06 Vomiting thimerosal Allergy Cannot Verified 04/04/17 22:06 Remember Home Meds: Home Meds Aspirin 1 tab PO DAILY 03/16/14 [History] Cilostazol [Pletal] 1 tab PO BID 03/16/14 [History] Insulin Glarg,Human.Rec.Analog [Lantus] 44 units SUBCUT DAILY 03/16/14 [History] Metoprolol Tartrate [Lopressor] 12.5 mg PO BID 03/16/14 [History] Pregabalin [Lyrica] 1 tab PO BID 03/16/14 [History] Valsartan [Diovan] 80 mg PO DAILY 03/16/14 [History] Ertapenem [INVanz] 1 gm IV Q24H 02/20/17 [History] Simvastatin [Zocor] 10 mg PO BEDTIME 02/20/17 [History] Past Medical History Cardiovascular History: Reports: Hypertension, MS, Other (See Below) Other Cardiovascular History: massive edema ankles Musculoskeletal History: Reports: Other (See Below) Other Musculoskeletal History: L leg trauma pto accident. ulcers on feet since 1995 Endocrine/Metabolic History: Reports: Diabetes, Type II Dermatologic History: Reports: Decubitus Ulcer, Venous Stasis Dermatitis, Other (See Below) Other Dermatologic History: ulcer debridement once a month with Dr Ko - Past Surgical History HEENT Surgical History: Reports: Adenoidectomy, Tonsillectomy Social & Family History - Tobacco Use Smoking Status *Q: Never Smoker Second Hand Smoke Exposure: No - Caffeine Use Caffeine Use: Reports: Soda - Alcohol Use Days Per Week of Alcohol Use: 0 - Recreational Drug Use Recreational Drug Use: No ED ROS GENERAL - Review of Systems Review Of Systems: See Below Constitutional: Reports: Malaise. Denies: Fever, Chills Respiratory: Denies: Shortness of Breath Cardiovascular: Denies: Chest Pain GI/Abdominal: Denies: Abdominal Pain, Nausea, Vomiting Skin: Reports: Pallor, Diaphoresis, Other (Open wound on the left leg, also an ulceration on the right foot) Neurological: Reports: Dizziness, Weakness ED EXAM, SKIN/RASH Exam: See Below Exam Limited By: No Limitations General Appearance: Alert, No Apparent Distress Eye Exam: Bilateral Eye: EOMI Respiratory/Chest: No Respiratory Distress, Lungs Clear Cardiovascular: Regular Rate, Rhythm GI/Abdominal: Soft, Non-Tender Extremities: Other (Dressing was removed and the patient has a very wide open dehisced surgical incision with slow bleeding from the wound) Neurological: Alert, Oriented Skin: Pallor Course - Vital Signs Last Recorded V/S: Last Vital Signs Temp 98.1 F 04/05/17 00:15 Pulse 97 04/05/17 00:15 Resp 16 04/05/17 00:15 BP 125/71 04/05/17 00:15 Pulse Ox 95 04/05/17 00:15 - Orders/Labs/Meds Orders: Active Orders 24 hr Category Date Time Status Sodium Chloride 0.9% [Normal Saline] 1,000 ml Med 04/04/17 23:30 Active IV ASDIRECTED Medication Orders Sodium Chloride (Normal Saline) 1,000 mls @ 500 mls/hr IV ASDIRECTED ALEXIA Last Admin: 04/04/17 23:32 Dose: 500 mls/hr Labs: Laboratory Tests 04/04/17 Range/Units 21:48 WBC 8.0 (4.5-11.0) K/uL RBC 2.77 L (4.30-5.90) M/uL Hgb 8.2 L (12.0-15.0) g/dL Hct 25.7 L (40.0-54.0) % MCV 93 (80-98) fL MCH 30 (27-31) pg MCHC 32 (32-36) % Plt Count 225 (150-400) K/uL Neut % (Auto) 55 (36-66) % Lymph % (Auto) 31 (24-44) % [place] % (Auto) 8 H (2-6) % Eos % (Auto) 5 H (2-4) % Baso % (Auto) 1 (0-1) % Meds: Medications Generic Name Dose Route Start Last Admin Trade Name Freq PRN Reason Stop Dose Admin Sodium Chloride 1,000 mls @ 500 mls/hr 04/04/17 23:30 04/04/17 23:32 Normal Saline IV 500 mls/hr ASDIRECTED ALEXIA Administration Discontinued Medications Generic Name Dose Route Start Last Admin Trade Name Freq PRN Reason Stop Dose Admin Sodium Chloride 1,000 mls @ 999 mls/hr 04/04/17 22:41 04/04/17 22:35 Normal Saline IV 04/04/17 23:41 999 mls/hr .BOLUS ONE Administration - Re-Assessments/Exams Free Text/Narrative Re-Assessment/Exam: 04/04/17 22:44 The wound was redressed. A CBC was obtained and the hemoglobin is 8.2. This is lower than the 9 level it was at 3 weeks ago. I discussed the state of the patient with the vascular surgeon and initial intention was to send him back to the longterm and have him transferred to the clinic tomorrow but the patient became more hypotensive, had several very intense vasovagal episodes, one where he lost consciousness completely. He did not continue bleeding through the bandages but I feel this patient needs to be seen tonight so arrangements were made for the patient to be transferred to [place] for reevaluation. Departure - Departure Time of Disposition: 00:15 Disposition: DC/Tfer to Other Condition: Fair Clinical Impression: Anemia, blood loss, Vaso-vagal reaction Postoperative wound dehiscence Qualifiers: Encounter type: initial encounter Qualified Code(s): T81.31XA - Disruption of external operation (surgical) wound, not elsewhere classified, initial encounter Type 2 diabetes mellitus Qualifiers: Diabetes mellitus complication status: with skin complications Diabetes mellitus complication detail: with other skin complication - Discharge Information Referrals: Mac Chris MD [Primary Care Provider] - Forms: ED Department Discharge Care Plan Goals: Fluids were bolused and the patient was sent by EMS to [facility] to be reassessed for his wound dehiscence, blood loss anemia and metabolic illness. - My Orders Last 24 Hours: My Active Orders 04/04/17 23:30 Sodium Chloride 0.9% [Normal Saline] 1,000 ml IV ASDIRECTED - Assessment/Plan Last 24 Hours: My Active Orders 04/04/17 23:30 Sodium Chloride 0.9% [Normal Saline] 1,000 ml IV ASDIRECTED
[2017-04-04] MEDS ORDERED: Sodium Chloride 0.9% 1,000 ML IV ONE (22:41)
[2017-04-04] MEDS ORDERED: Sodium Chloride 0.9% 1,000 ML IV SCH (23:30)
[2017-04-05 01:30] VITALS: BP 136/71
== END 2017-04-05 01:32 | disposition other institution (70) ==
LOC: JP.ED 21:07
DX: T81.31XA Disruption of external operation (surgical) wound, not elsewhere classified, initial encounter (principal); E11.628 Type 2 diabetes mellitus with other skin complications; I10 Essential (primary) hypertension; Z79.899 Other long term (current) drug therapy; Z88.2 Allergy status to sulfonamides; Z79.4 Long term (current) use of insulin; Z88.5 Allergy status to narcotic agent; Z88.8 Allergy status to other drugs, medicaments and biological substances; Z89.512 Acquired absence of left leg below knee
CPT/HCPCS: 36415; 82962; 85025; 96360; 99284; J7040

== ENCOUNTER 2017-04-20 22:32 | Emergency (ER) | payer MEDICARE, MEDICAID ==
--- NOTE | 2017-04-20 23:49 | EDM.PDOC ---
ED HPI GENERAL MEDICAL PROBLEM - General Chief Complaint: Lower Extremity Injury/Pain Stated Complaint: MEDICAL [facility] Time Seen by Provider: 04/20/17 23:00 Source of Information: Reports: Patient, EMS Notes Reviewed, Jail Records History Limitations: Reports: No Limitations - History of Present Illness INITIAL COMMENTS - FREE TEXT/NARRATIVE: pt has had a amputation on the left leg below the knee. When the dressing was changed or partially changed tonight he had some fairly heavy bleedin. The care home did put on a good pressure dressing. Onset: Today Duration: Hour(s): Location: Reports: Lower Extremity, Left Associated Symptoms: Reports: No Other Symptoms Treatments SUSPENDER MAKER: Reports: Dressing(s) - Related Data Allergies Allergy/AdvReac Type Severity Reaction Status Date / Time morphine Allergy Nausea and Verified 04/20/17 22:43 Vomiting thimerosal Allergy Cannot Verified 04/20/17 22:43 Remember Home Meds: Home Meds Aspirin 1 tab PO DAILY 03/16/14 [History] Cilostazol [Pletal] 1 tab PO BID 03/16/14 [History] Insulin Glarg,Human.Rec.Analog [Lantus] 27 units SUBCUT DAILY 03/16/14 [History] Metoprolol Tartrate [Lopressor] 12.5 mg PO BID 03/16/14 [History] Pregabalin [Lyrica] 75 mg PO DAILY 03/16/14 [History] Valsartan [Diovan] 80 mg PO DAILY 03/16/14 [History] Simvastatin [Zocor] 10 mg PO BEDTIME 02/20/17 [History] Acetaminophen [Tylenol Extra Strength] 1,000 mg PO TID 04/13/17 [History] Amino Ac/Protein Hydr/Whey Pro [Liquacel Liquid Protein] 1 oz PO TID 04/13/17 [ History] Ferrous Sulfate 325 mg PO BID 04/13/17 [History] Insulin Aspart [NovoLOG] 4 unit SUBCUT BIDAC 04/13/17 [History] Insulin Aspart [NovoLOG] 6 unit SUBCUT .EVENING 04/13/17 [History] Polyethylene Glycol 3350 [Miralax] 17 gm PO DAILY 04/13/17 [History] Pregabalin [Lyrica] 75 mg PO BID PRN 04/13/17 [History] oxyCODONE 5 mg PO Q4H PRN 04/13/17 [History] Past Medical History Cardiovascular History: Reports: Hypertension, [place], Other (See Below) Other Cardiovascular History: massive edema ankles Genitourinary History: Reports: Other (See Below) Other Genitourinary History: decreased kidney function Musculoskeletal History: Reports: Amputation, Other (See Below) Other Musculoskeletal History: L leg trauma pto accident. ulcers on feet since 1995. April 20 2017 has a wound vac to left stump Neurological History: Reports: Neuropathy, Diabetic Endocrine/Metabolic History: Reports: Diabetes, Type II Hematologic History: Reports: Anemia, B12 Deficiency, Iron Deficiency Dermatologic History: Reports: Decubitus Ulcer, Venous Stasis Dermatitis, Other (See Below) Other Dermatologic History: ulcer debridement once a month with Dr Ko - Infectious Disease History Infectious Disease History: Reports: Chicken Pox Other Infectious Disease History: foot ulcer - Past Surgical History HEENT Surgical History: Reports: Adenoidectomy, Tonsillectomy Musculoskeletal Surgical History: Reports: Amputation, Other (See Below) Other Musculoskeletal Surgeries/Procedures:: right foot amputation Social & Family History - Tobacco Use Smoking Status *Q: Never Smoker Second Hand Smoke Exposure: No - Caffeine Use Caffeine Use: Reports: Coffee - Alcohol Use Days Per Week of Alcohol Use: 0 - Recreational Drug Use Recreational Drug Use: No Review of Systems - Review of Systems Review Of Systems: See Below Constitutional: Reports: No Symptoms Eyes: Reports: No Symptoms Ears: Reports: No Symptoms Nose: Reports: No Symptoms Mouth/Throat: Reports: No Symptoms Respiratory: Reports: No Symptoms Cardiovascular: Reports: No Symptoms GI/Abdominal: Reports: No Symptoms Musculoskeletal: Reports: Other (pt has a bright red bleeding which was very heavy at first. ) Skin: Reports: No Symptoms ED EXAM, GENERAL - Physical Exam Exam: See Below Free Text/Narrative:: pt arrived with a history of heavy bleeding when the dressing was changed tonight. He came with a very good pressure dressing. Exam Limited By: No Limitations General Appearance: Alert, Anxious, Mild Distress Extremities: Other ( the wound was opened and watched and thre was no acute bleeding present. The pressure dressing was reapplied. ) Psychiatric: Normal Affect Course - Vital Signs Last Recorded V/S: Last Vital Signs Temp 36.8 C 04/20/17 23:04 Pulse 88 04/20/17 23:04 Resp 14 04/20/17 23:04 BP 129/72 04/20/17 23:04 Pulse Ox 99 04/20/17 23:04 Departure - Departure Time of Disposition: 23:49 Disposition: Home, Self-Care 01 Condition: Fair Clinical Impression: Bleeding from wound - Discharge Information Referrals: PCP,None [Primary Care Provider] - Care Plan Goals: leave the pressure dressing on for the nite and then in the morning proceed with the dressing change.
[2017-04-21 08:04] VITALS: BP 127/65
== END 2017-04-21 00:23 | disposition home or self-care (01) ==
LOC: JP.ED 22:32
DX: M96.830 Postprocedural hemorrhage of a musculoskeletal structure following a musculoskeletal system procedure (principal); I10 Essential (primary) hypertension; E11.40 Type 2 diabetes mellitus with diabetic neuropathy, unspecified; Z89.512 Acquired absence of left leg below knee; Z79.4 Long term (current) use of insulin; Z79.82 Long term (current) use of aspirin; Z79.899 Other long term (current) drug therapy; Z88.5 Allergy status to narcotic agent; Z88.8 Allergy status to other drugs, medicaments and biological substances
CPT/HCPCS: 99282; 99284

== ENCOUNTER 2017-06-02 19:54 | Emergency (ER) | payer MEDICARE, MEDICAID, OTHER ==
[2017-06-02] MEDS ORDERED: Ondansetron 4 MG/2 ML SDV IVPUSH ONE (20:52)
[2017-06-02] MEDS ORDERED: Acetaminophen 325 MG Tab PO ONE (20:52)
--- NOTE | 2017-06-02 20:54 | EDM.PDOC ---
ED HPI GENERAL MEDICAL PROBLEM - General Chief Complaint: Fever Stated Complaint: illness Time Seen by Provider: 06/02/17 20:43 Source of Information: Reports: Patient, RN Notes Reviewed History Limitations: Reports: No Limitations - History of Present Illness INITIAL COMMENTS - FREE TEXT/NARRATIVE: 67-year-old gentleman presents emergency department today with complaint of fever, he has known history of diabetes mellitus type 2 as well as peripheral vascular disease he does have a below-knee amputation on the left and chronic wounds on the right wound VAC dressings were changed today he states his fever just started at 4:00 this afternoon does have a complaint of nausea and vomiting as well Left Lower Leg Pain Score (Numeric/FACES): 1 - Related Data Allergies Allergy/AdvReac Type Severity Reaction Status Date / Time morphine Allergy Nausea and Verified 06/02/17 20:03 Vomiting thimerosal Allergy Cannot Verified 06/02/17 20:03 Remember Home Meds: Home Meds Aspirin 1 tab PO DAILY 03/16/14 [History] Cilostazol [Pletal] 1 tab PO BID 03/16/14 [History] Insulin Glarg,Human.Rec.Analog [Lantus] 27 units SUBCUT DAILY 03/16/14 [History] Metoprolol Tartrate [Lopressor] 12.5 mg PO BID 03/16/14 [History] Pregabalin [Lyrica] 75 mg PO DAILY 03/16/14 [History] Valsartan [Diovan] 80 mg PO DAILY 03/16/14 [History] Simvastatin [Zocor] 10 mg PO BEDTIME 02/20/17 [History] Acetaminophen [Tylenol Extra Strength] 1,000 mg PO TID 04/13/17 [History] Amino Ac/Protein Hydr/Whey Pro [Liquacel Liquid Protein] 1 oz PO TID 04/13/17 [ History] Ferrous Sulfate 325 mg PO BID 04/13/17 [History] Insulin Aspart [NovoLOG] 4 unit SUBCUT BIDAC 04/13/17 [History] Insulin Aspart [NovoLOG] 6 unit SUBCUT .EVENING 04/13/17 [History] Polyethylene Glycol 3350 [Miralax] 17 gm PO DAILY PRN 04/13/17 [History] Pregabalin [Lyrica] 75 mg PO BID PRN 04/13/17 [History] oxyCODONE 5 mg PO Q4H PRN 04/13/17 [History] Past Medical History Cardiovascular History: Reports: CAD, Hypertension, [place], PVD, Other (See Below) Other Cardiovascular History: massive edema ankles Genitourinary History: Reports: Other (See Below) Other Genitourinary History: decreased kidney function Musculoskeletal History: Reports: Amputation, Other (See Below) Other Musculoskeletal History: L leg trauma pto accident. ulcers on feet since 1995. April 20 2017 has a wound vac to left stump Neurological History: Reports: Neuropathy, Diabetic Endocrine/Metabolic History: Reports: Diabetes, Type II Hematologic History: Reports: Anemia, B12 Deficiency, Iron Deficiency Dermatologic History: Reports: Decubitus Ulcer, Venous Stasis Dermatitis, Other (See Below) Other Dermatologic History: states decubitus ulcer gone now. - Infectious Disease History Infectious Disease History: Reports: Chicken Pox Other Infectious Disease History: foot ulcer - Past Surgical History HEENT Surgical History: Reports: Adenoidectomy, Tonsillectomy Musculoskeletal Surgical History: Reports: Amputation, Other (See Below) Other Musculoskeletal Surgeries/Procedures:: right foot amputation Social & Family History - Tobacco Use Smoking Status *Q: Never Smoker Second Hand Smoke Exposure: No - Caffeine Use Caffeine Use: Reports: Soda Other Caffeine Use: diet coke - Alcohol Use Days Per Week of Alcohol Use: 0 - Recreational Drug Use Recreational Drug Use: No ED ROS GENERAL - Review of Systems Review Of Systems: See Below Constitutional: Reports: Fever, Chills, Weakness, Fatigue HEENT: Reports: No Symptoms Respiratory: Reports: No Symptoms Cardiovascular: Reports: No Symptoms GI/Abdominal: Reports: Nausea, Vomiting. Denies: Abdominal Pain : Reports: No Symptoms Musculoskeletal: Reports: No Symptoms Skin: Reports: Erythema, Wound Neurological: Reports: No Symptoms Psychiatric: Reports: No Symptoms ED EXAM, SEPSIS - Physical Exam Exam: See Below Text/Narrative:: General: Male, ill-appearing, alert and oriented x3 HEENT: head is atraumatic normocephalic, eyes pupils equal round reactive to light, sclera clear no conjunctivitis appreciated. Ears tympanic membranes clear and ornelas landmarks and light reflex are present bilaterally canals are clear. Nose no septal deviation, nares are clear, no blood present. Mouth mucosa is dry and red no erythema or exudate noted in soft palate, tongue is midline uvula is midline, dentition is intact. Neck: Supple no thyromegaly no tracheal deviation. Nodes: Cervical nodes subclavicular nodes nontender no palpable lymphadenopathy noted. Lungs: clear to auscultation bilaterally with symmetrical respirations, no adventitious noise appreciated. CV: Regular rate and rhythm S1 and S2 appreciated no murmurs rubs or gallops noted. Abdomen: Soft, nontender, no palpable masses or organomegaly appreciated, no distention no guarding bowel sounds are present, . Neuro: Cranial nerves II through XII grossly intact Skin: Right lower extremity erythematous wound VAC in place and functioning warm to the touch Extremities: Below-knee amputation on the left wound VAC and dressing in place on the right Course - Vital Signs Last Recorded V/S: Last Vital Signs Temp 102.6 F H 06/02/17 21:59 Pulse 132 H 06/02/17 21:35 Resp 24 H 06/02/17 21:00 BP 123/66 06/02/17 21:35 Pulse Ox 89 L 06/02/17 21:35 - Orders/Labs/Meds Orders: Active Orders 24 hr Category Date Time Status Cardiac Monitoring [RC] .As Directed Care 06/02/17 21:43 Active Peripheral IV Care [RC] . DIRECTED Care 06/02/17 21:43 Active Vital Signs [RC] Q1H Care 06/02/17 20:49 Active CULTURE BLOOD [BC] Urgent Lab 06/02/17 20:25 Received CULTURE BLOOD [BC] Urgent Lab 06/02/17 20:35 Received UA W/MICROSCOPIC [URIN] Routine Lab 06/02/17 20:49 Uncollected Lactated Ringers [Ringers, Lactated] 1,000 ml Med 06/02/17 21:00 Active IV ASDIRECTED Piperacillin/Tazobactam [Zosyn] 3.375 gm Med 06/02/17 22:00 Active Sodium Chloride 0.9% [Normal Saline] 50 ml IV Q6H Sodium Chloride 0.9% [Saline Flush] Med 06/02/17 21:43 Active 10 ml FLUSH ASDIRECTED PRN Vancomycin 1 gm Med 06/02/17 21:00 Active Sodium Chloride 0.9% [Normal Saline] 250 ml IV Q12H Blood Culture x2 Reflex Set [OM.PC] Urgent Oth 06/02/17 20:49 Ordered Peripheral IV Insertion Adult [OM.PC] Urgent Oth 06/02/17 21:42 Ordered Saline Lock Insert [OM.PC] Stat Oth 06/02/17 21:43 Ordered Medication Orders Lactated Ringer's (Ringers, Lactated) 1,000 mls @ 999 mls/hr IV ASDIRECTED ALEXIA Last Admin: 06/02/17 21:39 Dose: 999 mls/hr Vancomycin HCl 1 gm/ Sodium (Chloride) 250 mls @ 150 mls/hr IV Q12H ALEXIA Last Admin: 06/02/17 21:56 Dose: 150 mls/hr Piperacillin Sod/Tazobactam (Sod 3.375 gm/ Sodium Chloride) 50 mls @ 100 mls/ hr IV Q6H [facility] Sodium Chloride (Saline Flush) 10 ml FLUSH ASDIRECTED PRN PRN Reason: Keep Vein Open Labs: Laboratory Tests 06/02/17 06/02/17 06/02/17 Range/Units 20:49 20:49 20:49 WBC 11.5 H (4.5-11.0) K/uL RBC 3.51 L (4.30-5.90) M/uL Hgb 10.2 L (12.0-15.0) g/dL Hct 32.0 L (40.0-54.0) % MCV 91 (80-98) fL MCH 29 (27-31) pg MCHC 32 (32-36) % Plt Count 218 (150-400) K/uL Neut % (Auto) 87 H (36-66) % Lymph % (Auto) 6 L (24-44) % [place] % (Auto) 7 H (2-6) % Eos % (Auto) 0 L (2-4) % Baso % (Auto) 0 (0-1) % Sodium 144 (140-148) mmol/L Potassium 3.3 L (3.6-5.2) mmol/L Chloride 108 (100-108) mmol/L Carbon Dioxide 25 (21-32) mmol/L Anion Gap 14.3 H (5.0-14.0) mmol/L BUN 24 H (7-18) mg/dL Creatinine 1.2 (0.8-1.3) mg/dL Est Cr Clr Drug Dosing 67.36 mL/min Estimated GFR (MDRD) > 60 (>60) Glucose 142 H (74-106) mg/dL Lactic Acid 1.6 (0.4-2.0) mmol/L Calcium 8.6 (8.5-10.1) mg/dL Total Bilirubin 0.3 (0.2-1.0) mg/dL AST 15 (15-37) U/L ALT 16 (12-78) U/L Alkaline Phosphatase 68 (46-116) U/L C-Reactive Protein 2.50 H (0.0-0.3) mg/dL Total Protein 7.3 (6.4-8.2) g/dL Albumin 2.9 L (3.4-5.0) g/dL Globulin 4.4 H (2.3-3.5) g/dL Albumin/Globulin Ratio 0.7 L (1.2-2.2) Meds: Medications Generic Name Dose Route Start Last Admin Trade Name Jace PRN Reason Stop Dose Admin Lactated Ringer's 1,000 mls @ 999 mls/hr 06/02/17 21:00 06/02/17 21:39 Ringers, Lactated IV 999 mls/hr ASDIRECTED ALEXIA Administration Vancomycin HCl 1 gm/ Sodium 250 mls @ 150 mls/hr 06/02/17 21:00 06/02/17 21: 56 Chloride IV 150 mls/hr Q12H ALEXIA Administration Piperacillin Sod/Tazobactam 50 mls @ 100 mls/hr 06/02/17 22:00 Sod 3.375 gm/ Sodium Chloride IV Q6H ALEXIA Sodium Chloride 10 ml 06/02/17 21:43 Saline Flush FLUSH ASDIRECTED PRN Keep Vein Open Discontinued Medications Generic Name Dose Route Start Last Admin Trade Name Jace PRN Reason Stop Dose Admin Acetaminophen 650 mg 06/02/17 20:52 06/02/17 21:29 Tylenol PO 06/02/17 20:53 650 mg NOW ONE Administration Linezolid 600 mg/ Premix 300 mls @ 300 mls/hr 06/02/17 21:00 06/02/17 21:56 IV 300 mls/hr Q12H ALEXIA Administration Ondansetron HCl 4 mg 06/02/17 20:52 06/02/17 21:31 Zofran IVPUSH 06/02/17 20:53 4 mg ONETIME ONE Administration Departure - Departure Time of Disposition: 22:11 Disposition: Admitted As Inpatient 68 Condition: Fair Clinical Impression: Acute onset sepsis - Discharge Information Referrals: PCP,None [Primary Care Provider] - Forms: ED Department Discharge - My Orders Last 24 Hours: My Active Orders 06/02/17 20:25 CULTURE BLOOD [BC] Urgent 06/02/17 20:35 CULTURE BLOOD [BC] Urgent 06/02/17 20:49 Vital Signs [RC] Q1H UA W/MICROSCOPIC [URIN] Routine Blood Culture x2 Reflex Set [OM.PC] Urgent 06/02/17 21:00 Lactated Ringers [Ringers, Lactated] 1,000 ml IV ASDIRECTED Vancomycin 1 gm Sodium Chloride 0.9% [Normal Saline] 250 ml IV Q12H 06/02/17 21:42 Peripheral IV Insertion Adult [OM.PC] Urgent 06/02/17 21:43 Cardiac Monitoring [RC] .As Directed Peripheral IV Care [RC] . DIRECTED Sodium Chloride 0.9% [Saline Flush] 10 ml FLUSH ASDIRECTED PRN Saline Lock Insert [OM.PC] Stat 06/02/17 22:00 Piperacillin/Tazobactam [Zosyn] 3.375 gm Sodium Chloride 0.9% [Normal Saline] 50 ml IV Q6H - Assessment/Plan Last 24 Hours: My Active Orders 06/02/17 20:25 CULTURE BLOOD [BC] Urgent 06/02/17 20:35 CULTURE BLOOD [BC] Urgent 06/02/17 20:49 Vital Signs [RC] Q1H UA W/MICROSCOPIC [URIN] Routine Blood Culture x2 Reflex Set [OM.PC] Urgent 06/02/17 21:00 Lactated Ringers [Ringers, Lactated] 1,000 ml IV ASDIRECTED Vancomycin 1 gm Sodium Chloride 0.9% [Normal Saline] 250 ml IV Q12H 06/02/17 21:42 Peripheral IV Insertion Adult [OM.PC] Urgent 06/02/17 21:43 Cardiac Monitoring [RC] .As Directed Peripheral IV Care [RC] . DIRECTED Sodium Chloride 0.9% [Saline Flush] 10 ml FLUSH ASDIRECTED PRN Saline Lock Insert [OM.PC] Stat 06/02/17 22:00 Piperacillin/Tazobactam [Zosyn] 3.375 gm Sodium Chloride 0.9% [Normal Saline] 50 ml IV Q6H Plan: Assessment Acuity = acute Site and laterality = early sepsis secondary to cellulitis right leg Etiology = probable bacterial cause Manifestations = fever Location of injury = Home Lab values = WBC elevated 11.5 consistent leukocytosis, hemoglobin low at 10.2 consistent normochromic anemia, potassium low at 3.3 consistent hypokalemia lactic acid normal at 1.6 CRP mildly elevated 2.5 Plan Called discussed case with hospitalist cable installation technician agreed to evaluate the patient emergency department for admission, did receive vancomycin, 1 dose of Zyvox 1 dose of Zosyn blood cultures are pending urinalysis also pending This note was dictated using [employer] voice recognition software please call with any questions on syntax or rajesh.
[2017-06-02] MEDS ORDERED: Linezolid 600 MG in Premix Bag 1 BAG IV SCH (21:00)
[2017-06-02] MEDS ORDERED: Lactated Ringers 1,000 ML IV SCH (21:00)
[2017-06-02] MEDS ORDERED: Sodium Chloride 0.9% 10 ML Syringe FLUSH PRN (21:43)
[2017-06-02] MEDS ORDERED: Piperacillin/Tazobactam 3.375 GM in Sodium Chloride 0.9% 50 ML IV SCH (22:00)
[2017-06-02] MEDS ORDERED: Potassium Chloride 20 MEQ in Premix Bag 1 BAG IV ONE (22:28)
[2017-06-02] MEDS ORDERED: Sodium Chloride 0.9% 1,000 ML IV SCH (23:15)
[2017-06-02] MEDS ORDERED: Norepinephrine 4 MG in Dextrose 5% in Water 246 ML IV SCH ×2 (23:30)
[2017-06-02 23:44] VITALS: BP 86/47
== END 2017-06-02 23:55 | disposition critical access hospital (66) ==
LOC: JP.ED 19:54
DX: A41.9 Sepsis, unspecified organism (principal); R65.21 Severe sepsis with septic shock; L03.115 Cellulitis of right lower limb; E11.9 Type 2 diabetes mellitus without complications; I10 Essential (primary) hypertension; Z79.82 Long term (current) use of aspirin; Z79.4 Long term (current) use of insulin; Z79.899 Other long term (current) drug therapy; Z88.5 Allergy status to narcotic agent; Z88.8 Allergy status to other drugs, medicaments and biological substances
CPT/HCPCS: 36415; 80053; 83605; 84484; 85025; 86140; 87040; 96361; 96365; 96366; 96368; 96375; 99284; A9270; J2020; J2405; J3370; J3480; J7040; J7050; J7060; J7120; 87107; 99285; J7030

== ENCOUNTER 2017-06-25 01:37 | Emergency (ER) | payer MEDICARE, MEDICAID ==
[2017-06-25] MEDS ORDERED: Ondansetron 4 MG/2 ML SDV IVPUSH ONE (02:10)
[2017-06-25] MEDS ORDERED: ceFAZolin 1 GM in Sodium Chloride 0.9% 50 ML IV SCH (02:15)
[2017-06-25] MEDS ORDERED: Lactated Ringers 1,000 ML IV SCH ×4 (02:15→05:15)
--- NOTE | 2017-06-25 02:16 | EDM.PDOC ---
ED HPI GENERAL MEDICAL PROBLEM - General Chief Complaint: General Stated Complaint: [facility] Time Seen by Provider: 06/25/17 02:06 Source of Information: Reports: Patient, RN Notes Reviewed History Limitations: Reports: No Limitations - History of Present Illness INITIAL COMMENTS - FREE TEXT/NARRATIVE: 67-year-old man presents emergency department day complaint of fever and chills , he was recently discharged from the hospital with sepsis secondary to skin source has been off antibiotics for 3 days was admitted to [facility] , he is complaining of chills and fever, his port was recently removed denies pain Pain Score (Numeric/FACES): 0 - Related Data Allergies Allergy/AdvReac Type Severity Reaction Status Date / Time morphine Allergy Nausea and Verified 06/25/17 01:39 Vomiting thimerosal Allergy Cannot Verified 06/25/17 01:39 Remember Home Meds: Home Meds Aspirin 325 mg PO DAILY 03/16/14 [History] Cilostazol [Pletal] 100 mg PO BID 03/16/14 [History] Insulin Glarg,Human.Rec.Analog [Lantus] 12 units SUBCUT BEDTIME 03/16/14 [ History] Metoprolol Tartrate [Lopressor] 12.5 mg PO BID 03/16/14 [History] Valsartan [Diovan] 80 mg PO DAILY 03/16/14 [History] Simvastatin [Zocor] 10 mg PO BEDTIME 02/20/17 [History] Acetaminophen [Tylenol Extra Strength] 500 mg PO ASDIRECTED PRN 04/13/17 [ History] Amino Ac/Protein Hydr/Whey Pro [Liquacel Liquid Protein] 1 oz PO TID 04/13/17 [ History] Ferrous Sulfate 325 mg PO BID 04/13/17 [History] Insulin Aspart [NovoLOG] 5 unit SUBCUT ASDIRECTED 04/13/17 [History] Polyethylene Glycol 3350 [Miralax] 17 gm PO DAILY PRN 04/13/17 [History] Past Medical History Cardiovascular History: Reports: CAD, High Cholesterol, Hypertension, [place], PVD, Other (See Below) Other Cardiovascular History: massive edema ankles Genitourinary History: Reports: Other (See Below) Other Genitourinary History: decreased kidney function Musculoskeletal History: Reports: Amputation, Other (See Below) Other Musculoskeletal History: L leg trauma pto accident. ulcers on feet since 1995. April 20 2017 has a wound vac to left stump Neurological History: Reports: Neuropathy, Diabetic Endocrine/Metabolic History: Reports: Diabetes, Type II Hematologic History: Reports: Anemia, B12 Deficiency, Iron Deficiency Dermatologic History: Reports: Decubitus Ulcer, Venous Stasis Dermatitis, Other (See Below) Other Dermatologic History: states decubitus ulcer gone now. - Infectious Disease History Infectious Disease History: Reports: Chicken Pox, Measles, Mumps Other Infectious Disease History: foot ulcer - Past Surgical History HEENT Surgical History: Reports: Adenoidectomy, Tonsillectomy Musculoskeletal Surgical History: Reports: Amputation, Other (See Below) Other Musculoskeletal Surgeries/Procedures:: left foot amputation February 2017 Social & Family History - Tobacco Use Smoking Status *Q: Never Smoker Second Hand Smoke Exposure: No - Caffeine Use Caffeine Use: Reports: Soda Other Caffeine Use: diet coke - Alcohol Use Days Per Week of Alcohol Use: 0 - Recreational Drug Use Recreational Drug Use: No ED ROS GENERAL - Review of Systems Review Of Systems: See Below Constitutional: Reports: Fever, Chills, Weakness HEENT: Reports: No Symptoms Respiratory: Reports: No Symptoms Cardiovascular: Reports: No Symptoms GI/Abdominal: Reports: No Symptoms : Reports: No Symptoms Musculoskeletal: Reports: No Symptoms Skin: Reports: Pallor, Rash, Wound, Change in Color Neurological: Reports: No Symptoms ED EXAM, GENERAL - Physical Exam Exam: See Below Free Text/Narrative:: Examination lower extremities he does have below-knee amputation does have an open wound on the left side it is erythematous no tenderness to palpation, right leg does have chronic wounds on the foot as well erythematous tender to the touch Exam Limited By: No Limitations General Appearance: Alert, WD/WN, No Apparent Distress Eye Exam: Bilateral Eye: Normal Inspection Neck: Normal Inspection, Supple, Non-Tender, Full Range of Motion Respiratory/Chest: No Respiratory Distress, No Accessory Muscle Use, Rhonchi Cardiovascular: No Murmur, Tachycardia GI/Abdominal: Soft, Non-Tender Course - Vital Signs Last Recorded V/S: Last Vital Signs Temp 100.8 F H 06/25/17 06:00 Pulse 130 H 06/25/17 06:00 Resp 26 H 06/25/17 06:00 BP 124/57 L 06/25/17 06:00 Pulse Ox 94 L 06/25/17 06:00 - Orders/Labs/Meds Orders: Active Orders 24 hr Category Date Time Status Vital Signs [RC] Q1H Care 06/25/17 02:08 Active Chest 1V Frontal [CR] Urgent Exams 06/25/17 02:11 Taken CULTURE BLOOD [BC] Urgent Lab 06/25/17 02:20 Received CULTURE BLOOD [BC] Urgent Lab 06/25/17 02:25 Received UA W/MICROSCOPIC [URIN] Urgent Lab 06/25/17 02:08 Uncollected Lactated Ringers [Ringers, Lactated] 1,000 ml Med 06/25/17 02:15 Active IV ASDIRECTED Lactated Ringers [Ringers, Lactated] 1,000 ml Med 06/25/17 03:45 Active IV ASDIRECTED Lactated Ringers [Ringers, Lactated] 1,000 ml Med 06/25/17 05:15 Active IV ASDIRECTED Piperacillin/Tazobactam [Zosyn] 3.375 gm Med 06/25/17 06:15 Ordered Sodium Chloride 0.9% [Normal Saline] 50 ml IV Q6H Vancomycin 1 gm Med 06/25/17 03:00 Active Sodium Chloride 0.9% [Normal Saline] 250 ml IV Q12H ceFAZolin [Ancef] 1 gm Med 06/25/17 02:15 Active Sodium Chloride 0.9% [Normal Saline] 50 ml IV Q8H Blood Culture x2 Reflex Set [OM.PC] Urgent Oth 06/25/17 02:08 Ordered Medication Orders Cefazolin Sodium 1 gm/ Sodium (Chloride) 50 mls @ 100 mls/hr IV Q8H [facility] Last Admin: 06/25/17 02:39 Dose: 100 mls/hr Lactated Ringer's (Ringers, Lactated) 1,000 mls @ 999 mls/hr IV ASDIRECTED [facility] Last Admin: 06/25/17 02:40 Dose: 999 mls/hr Vancomycin HCl 1 gm/ Sodium (Chloride) 250 mls @ 150 mls/hr IV Q12H [facility] Last Admin: 06/25/17 03:14 Dose: 150 mls/hr Lactated Ringer's (Ringers, Lactated) 1,000 mls @ 500 mls/hr IV ASDIRECTED [facility] Last Admin: 06/25/17 05:07 Dose: 500 mls/hr Lactated Ringer's (Ringers, Lactated) 1,000 mls @ 999 mls/hr IV ASDIRECTED [facility] Last Admin: 06/25/17 05:12 Dose: 999 mls/hr Piperacillin Sod/Tazobactam (Sod 3.375 gm/ Sodium Chloride) 50 mls @ 100 mls/ hr IV Q6H [facility] Labs: Laboratory Tests 06/25/17 06/25/17 06/25/17 Range/Units 02:20 02:20 02:20 WBC 9.5 (4.5-11.0) K/uL RBC 3.71 L (4.30-5.90) M/uL Hgb 11.1 L (12.0-15.0) g/dL Hct 34.6 L (40.0-54.0) % MCV 93 (80-98) fL MCH 30 (27-31) pg MCHC 32 (32-36) % Plt Count 290 (150-400) K/uL Neut % (Auto) 77 H (36-66) % Lymph % (Auto) 14 L (24-44) % [place] % (Auto) 6 (2-6) % Eos % (Auto) 3 (2-4) % Baso % (Auto) 0 (0-1) % Sodium 142 (140-148) mmol/L Potassium 3.6 (3.6-5.2) mmol/L Chloride 106 (100-108) mmol/L Carbon Dioxide 25 (21-32) mmol/L Anion Gap 10.6 (5.0-14.0) mmol/L BUN 21 H (7-18) mg/dL Creatinine 1.5 H (0.8-1.3) mg/dL Est Cr Clr Drug Dosing 53.89 mL/min Estimated GFR (MDRD) 47 L (>60) Glucose 212 H (74-106) mg/dL Lactic Acid 2.1 H (0.4-2.0) mmol/L Calcium 8.9 (8.5-10.1) mg/dL Total Bilirubin 0.3 (0.2-1.0) mg/dL AST 15 (15-37) U/L ALT 22 (12-78) U/L Alkaline Phosphatase 99 (46-116) U/L C-Reactive Protein 1.77 H (0.0-0.3) mg/dL Total Protein 7.9 (6.4-8.2) g/dL Albumin 3.3 L (3.4-5.0) g/dL Globulin 4.6 H (2.3-3.5) g/dL Albumin/Globulin Ratio 0.7 L (1.2-2.2) Meds: Medications Generic Name Dose Route Start Last Admin Trade Name Jace PRN Reason Stop Dose Admin Cefazolin Sodium 1 gm/ Sodium 50 mls @ 100 mls/hr 06/25/17 02:15 06/25/17 02: 39 Chloride IV 100 mls/hr Q8H ALEXIA Administration Lactated Ringer's 1,000 mls @ 999 mls/hr 06/25/17 02:15 06/25/17 02:40 Ringers, Lactated IV 999 mls/hr ASDIRECTED ALEXIA Administration Vancomycin HCl 1 gm/ Sodium 250 mls @ 150 mls/hr 06/25/17 03:00 06/25/17 03: 14 Chloride IV 150 mls/hr Q12H ALEXIA Administration Lactated Ringer's 1,000 mls @ 500 mls/hr 06/25/17 05:15 06/25/17 05:07 Ringers, Lactated IV 500 mls/hr ASDIRECTED ALEXIA Administration Lactated Ringer's 1,000 mls @ 999 mls/hr 06/25/17 03:45 06/25/17 05:12 Ringers, Lactated IV 999 mls/hr ASDIRECTED ALEXIA Administration Piperacillin Sod/Tazobactam 50 mls @ 100 mls/hr 06/25/17 06:15 Sod 3.375 gm/ Sodium Chloride IV Q6H ALEXIA Discontinued Medications Generic Name Dose Route Start Last Admin Trade Name Jace PRN Reason Stop Dose Admin Lactated Ringer's 1,000 mls @ 999 mls/hr 06/25/17 04:45 06/25/17 05:06 Ringers, Lactated IV 999 mls/hr ASDIRECTED ALEXIA Administration Ibuprofen 600 mg 06/25/17 03:04 06/25/17 03:19 Motrin PO 06/25/17 03:05 600 mg ONETIME ONE Administration Ondansetron HCl 4 mg 06/25/17 02:10 06/25/17 02:52 Zofran IVPUSH 06/25/17 02:11 4 mg ONETIME ONE Administration Departure - Departure Time of Disposition: 06:16 Disposition: DC/Tfer to Acute Hospital 02 Condition: Poor Clinical Impression: Acute onset sepsis - Discharge Information Referrals: PCP,None [Primary Care Provider] - Forms: ED Department Discharge - My Orders Last 24 Hours: My Active Orders 06/25/17 02:08 Vital Signs [RC] Q1H UA W/MICROSCOPIC [URIN] Urgent Blood Culture x2 Reflex Set [OM.PC] Urgent 06/25/17 02:11 Chest 1V Frontal [CR] Urgent 06/25/17 02:15 Lactated Ringers [Ringers, Lactated] 1,000 ml IV ASDIRECTED ceFAZolin [Ancef] 1 gm Sodium Chloride 0.9% [Normal Saline] 50 ml IV Q8H 06/25/17 02:20 CULTURE BLOOD [BC] Urgent 06/25/17 02:25 CULTURE BLOOD [BC] Urgent 06/25/17 03:00 Vancomycin 1 gm Sodium Chloride 0.9% [Normal Saline] 250 ml IV Q12H 06/25/17 03:45 Lactated Ringers [Ringers, Lactated] 1,000 ml IV ASDIRECTED 06/25/17 05:15 Lactated Ringers [Ringers, Lactated] 1,000 ml IV ASDIRECTED 06/25/17 06:15 Piperacillin/Tazobactam [Zosyn] 3.375 gm Sodium Chloride 0.9% [Normal Saline] 50 ml IV Q6H - Assessment/Plan Last 24 Hours: My Active Orders 06/25/17 02:08 Vital Signs [RC] Q1H UA W/MICROSCOPIC [URIN] Urgent Blood Culture x2 Reflex Set [OM.PC] Urgent 06/25/17 02:11 Chest 1V Frontal [CR] Urgent 06/25/17 02:15 Lactated Ringers [Ringers, Lactated] 1,000 ml IV ASDIRECTED ceFAZolin [Ancef] 1 gm Sodium Chloride 0.9% [Normal Saline] 50 ml IV Q8H 06/25/17 02:20 CULTURE BLOOD [BC] Urgent 06/25/17 02:25 CULTURE BLOOD [BC] Urgent 06/25/17 03:00 Vancomycin 1 gm Sodium Chloride 0.9% [Normal Saline] 250 ml IV Q12H 06/25/17 03:45 Lactated Ringers [Ringers, Lactated] 1,000 ml IV ASDIRECTED 06/25/17 05:15 Lactated Ringers [Ringers, Lactated] 1,000 ml IV ASDIRECTED 06/25/17 06:15 Piperacillin/Tazobactam [Zosyn] 3.375 gm Sodium Chloride 0.9% [Normal Saline] 50 ml IV Q6H Plan: Assessment Acuity = acute Site and laterality = early sepsis, complicated in a patient with diabetes mellitus type 2 and chronic wounds lower extremities Etiology = unclear etiology Manifestations = tachycardic, fever Location of injury = Home Lab values = hemoglobin low 11.1 consistent with normochromic anemia creatinine elevated 1.5 consistent with chronic renal failure stage GIII a lactic acid slightly elevated 2.1 CRP elevated 1.77 albumin low at 3.3 consistent hypoalbuminemia chest x-ray I did review films myself I cannot appreciate any acute process, the official read from radiology is pending, blood cultures are pending, no urine was provided Plan Called and discussed case with hospitalist and 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 recommend starting Zosyn, will be transported to to [facility] has been given 3 L of lactated Ringer's, 1 g of Rocephin 1 g Ancef This note was dictated using Meta voice recognition software please call with any questions on syntax or rajesh.
[2017-06-25] MEDS ORDERED: Ibuprofen 600 MG Tab PO ONE (03:04)
[2017-06-25] MEDS ORDERED: Piperacillin/Tazobactam 3.375 GM in Sodium Chloride 0.9% 50 ML IV SCH (06:15)
[2017-06-25] MEDS ORDERED: Norepinephrine 4 MG in Dextrose 5% in Water 246 ML IV SCH ×2 (06:45)
[2017-06-25 08:33] VITALS: BP 116/57
--- NOTE | 2017-06-27 08:53 | CR ---
Chest 1V Frontal HISTORY: fever COMPARISON: None FINDINGS: Portable chest, 0251 hours Lungs appear clear and normally aerated. Cardiomediastinal silhouette is within normal limits. No vas cular redistribution or pleural fluid can be seen. Bony structures and soft tissues are unremarkable. IMPRESSION: No acute chest abnormality identified.
== END 2017-06-25 07:23 ==
LOC: JP.ED 01:37
DX: A41.9 Sepsis, unspecified organism (principal); I10 Essential (primary) hypertension; I25.10 Atherosclerotic heart disease of native coronary artery without angina pectoris; E78.00 Pure hypercholesterolemia, unspecified; E11.42 Type 2 diabetes mellitus with diabetic polyneuropathy; Z88.5 Allergy status to narcotic agent; Z88.8 Allergy status to other drugs, medicaments and biological substances; Z79.82 Long term (current) use of aspirin; Z79.4 Long term (current) use of insulin; Z89.512 Acquired absence of left leg below knee; Z98.890 Other specified postprocedural states; Z79.899 Other long term (current) drug therapy
CPT/HCPCS: 36415; 71045; 80053; 83605; 85025; 86140; 87040; 96361; 96365; 96366; 96367; 96375; 99285; A9270; J0690; J2405; J2543; J3370; J7050; J7060; J7120; 99284

== ENCOUNTER 2017-08-15 17:11 | Inpatient (IN) | payer MEDICAID, MEDICARE ==
--- NOTE | 2017-08-15 18:23 | EDM.PDOC ---
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 He has been doing well, off antibiotics for several weeks but developed a fever today, chills, and his home health nurse noticed erythema on the right leg. No nausea or vomiting, denies shortness of breath. Onset: Gradual (Over the past several days) Severity: Moderate Associated Symptoms: Reports: Fever/Chills, Weakness. Denies: Nausea/Vomiting, Shortness of Breath - Related Data Allergies Allergy/AdvReac Type Severity Reaction Status Date / Time morphine Allergy Nausea and Verified 06/25/17 01:39 Vomiting thimerosal Allergy Cannot Verified 06/25/17 01:39 Remember Home Meds: Home Meds Aspirin 325 mg PO DAILY 03/16/14 [History] Cilostazol [Pletal] 100 mg PO BID 03/16/14 [History] Insulin Glarg,Human.Rec.Analog [Lantus] 12 units SUBCUT BEDTIME 03/16/14 [ History] Metoprolol Tartrate [Lopressor] 12.5 mg PO BID 03/16/14 [History] Valsartan [Diovan] 80 mg PO DAILY 03/16/14 [History] Simvastatin [Zocor] 10 mg PO BEDTIME 02/20/17 [History] Acetaminophen [Tylenol Extra Strength] 500 mg PO ASDIRECTED PRN 04/13/17 [ History] Amino Ac/Protein Hydr/Whey Pro [Liquacel Liquid Protein] 1 oz PO TID 04/13/17 [ History] Ferrous Sulfate 325 mg PO BID 04/13/17 [History] Insulin Aspart [NovoLOG] 5 unit SUBCUT ASDIRECTED 04/13/17 [History] Polyethylene Glycol 3350 [Miralax] 17 gm PO DAILY PRN 04/13/17 [History] Amoxicillin/Clavulanate K [Augmentin 875-125 MG] 1 tab PO BID 08/16/17 [History] Magnesium Oxide 500 mg PO BID 08/16/17 [History] Pregabalin [Lyrica] 150 mg PO BID 08/16/17 [History] Past Medical History Cardiovascular History: Reports: CAD, High Cholesterol, Hypertension, [place], PVD, Other (See Below) Other Cardiovascular History: massive edema ankles Genitourinary History: Reports: Other (See Below) Other Genitourinary History: decreased kidney function Musculoskeletal History: Reports: Amputation, Other (See Below) Other Musculoskeletal History: L leg trauma pto accident. ulcers on feet since 1995. April 20 2017 has a wound vac to left stump Neurological History: Reports: Neuropathy, Diabetic Endocrine/Metabolic History: Reports: Diabetes, Type II Hematologic History: Reports: Anemia, B12 Deficiency, Iron Deficiency Dermatologic History: Reports: Decubitus Ulcer, Venous Stasis Dermatitis, Other (See Below) Other Dermatologic History: states decubitus ulcer gone now. - Infectious Disease History Infectious Disease History: Reports: Chicken Pox, Measles, MRSA, Mumps Other Infectious Disease History: foot ulcer - Past Surgical History HEENT Surgical History: Reports: Adenoidectomy, Tonsillectomy Musculoskeletal Surgical History: Reports: Amputation, Other (See Below) Other Musculoskeletal Surgeries/Procedures:: left foot amputation February 2017 Social & Family History - Tobacco Use Smoking Status *Q: Never Smoker Second Hand Smoke Exposure: No - Caffeine Use Caffeine Use: Reports: Soda Other Caffeine Use: diet coke - Alcohol Use Days Per Week of Alcohol Use: 0 - Recreational Drug Use Recreational Drug Use: No ED ROS GENERAL - Review of Systems Review Of Systems: See Below Constitutional: Reports: Fever, Chills, Malaise Respiratory: Denies: Shortness of Breath Cardiovascular: Denies: Chest Pain GI/Abdominal: Denies: Nausea, Vomiting Skin: Reports: Erythema, Other (Chronic wound healing on the left his lower extremity stump, also an ulcerative lesion on the right heel) Neurological: Denies: Headache Psychiatric: Reports: No Symptoms ED EXAM, GENERAL - Physical Exam Exam: See Below Exam Limited By: No Limitations General Appearance: Alert, No Apparent Distress Respiratory/Chest: No Respiratory Distress, Lungs Clear Cardiovascular: Regular Rate, Rhythm Extremities: Other (Patient has extensive erythema and warmth of the right lower extremity from the ankle extending up to the medial thigh. It is well demarcated and moderately tender to palpation. It is not continuous with his ulcer of the heel. The open wound is healing and actually looks healthy and noninfected on the left leg.) Neurological: Alert, Oriented Course - Vital Signs Last Recorded V/S: Last Vital Signs Temp 99.0 F 08/16/17 06:00 Pulse 79 08/16/17 06:00 Resp 21 H 08/16/17 06:00 BP 126/61 08/16/17 06:00 Pulse Ox 94 L 08/16/17 06:00 - Orders/Labs/Meds Orders: Active Orders 24 hr Category Date Time Status CULTURE BLOOD [BC] Urgent Lab 08/15/17 17:50 Ordered CULTURE BLOOD [BC] Urgent Lab 08/15/17 18:04 Ordered Piperacillin/Tazobactam [Zosyn] 3.375 gm Med 08/15/17 19:00 Active Sodium Chloride 0.9% [Normal Saline] 50 ml IV Q6H Vancomycin Med 08/15/17 19:00 Active 1 gm IV .PHARMACY TO DOSE Blood Culture x2 Reflex Set [OM.PC] Urgent Oth 08/15/17 17:39 Ordered Medication Orders Acetaminophen (Tylenol) 650 mg PO Q4H PRN PRN Reason: Pain (Mild 1-3)/fever Last Admin: 08/16/17 05:25 Dose: 650 mg Admin: 08/16/17 00:21 Dose: 650 mg Admin: 08/15/17 20:01 Dose: 650 mg Aspirin (Ecotrin) 325 mg PO DAILY [facility] Cilostazol (Pletal) 100 mg PO BID [facility] Last Admin: 08/15/17 20:39 Dose: 100 mg Dextrose (Glutose 15) 15 gm PO ONETIME PRN PRN Reason: Hypoglycemia Dextrose/Water (Dextrose 50% In Water) 50 ml IV ONETIME PRN PRN Reason: Hypoglycemia Enoxaparin Sodium (Lovenox) 40 mg SUBCUT Q24H [facility] Ferrous Sulfate (Ferrous Sulfate) 325 mg PO BID [facility] Last Admin: 08/15/17 20:43 Dose: 325 mg Piperacillin Sod/Tazobactam (Sod 3.375 gm/ Sodium Chloride) 50 mls @ 100 mls/ hr IV Q6H [facility] Last Admin: 08/16/17 00:20 Dose: 100 mls/hr Admin: 08/15/17 19:18 Dose: 100 mls/hr Lactated Ringer's (Ringers, Lactated) 1,000 mls @ 125 mls/hr IV ASDIRECTED [facility] Last Admin: 08/16/17 07:00 Dose: 125 mls/hr Infusion: 08/16/17 06:32 Dose: 125 mls/hr Admin: 08/15/17 22:32 Dose: 125 mls/hr Vancomycin HCl 1.5 gm/ Sodium (Chloride) 250 mls @ 166.667 mls/hr IV Q12H [facility] Insulin Aspart (Novolog) 0 unit SUBCUT QIDACANDBED [facility]; Protocol Last Admin: 08/15/17 21:50 Dose: Not Given Insulin Detemir (Levemir) 12 unit SUBCUT BEDTIME [facility] Last Admin: 08/15/17 21:51 Dose: 12 units Magnesium Hydroxide (Milk Of Magnesia) 30 ml PO Q12H PRN PRN Reason: Constipation Metoprolol Tartrate (Lopressor) 12.5 mg PO BID [facility] Last Admin: 08/15/17 21:52 Dose: Not Given Ondansetron HCl (Zofran) 4 mg IV Q4H PRN PRN Reason: Nausea/Vomiting Oxycodone HCl (Oxycodone) 10 mg PO Q4H PRN PRN Reason: Pain (moderate 4-6) Polyethylene Glycol (Miralax) 17 gm PO DAILY PRN PRN Reason: Constipation Pregabalin (Lyrica) 150 mg PO BID [facility] Last Admin: 08/16/17 01:12 Dose: 150 mg Senna/Docusate Sodium (Senna Plus) 1 tab PO BID PRN PRN Reason: Constipation Simvastatin (Zocor) 10 mg PO BEDTIME [facility] Last Admin: 08/15/17 20:43 Dose: 10 mg Sodium Chloride (Saline Flush) 10 ml FLUSH ASDIRECTED PRN PRN Reason: Keep Vein Open Valsartan (Diovan) 80 mg PO DAILY [facility] Vancomycin HCl (Vancomycin) 1 gm IV .PHARMACY TO DOSE [facility] Stop: 08/16/17 08:00 Labs: Laboratory Tests 08/15/17 08/15/17 Range/Units 17:50 17:50 WBC 8.3 (4.5-11.0) K/uL RBC 3.76 L (4.30-5.90) M/uL Hgb 11.2 L (12.0-15.0) g/dL Hct 34.0 L (40.0-54.0) % MCV 90 (80-98) fL MCH 30 (27-31) pg MCHC 33 (32-36) % Plt Count 239 (150-400) K/uL Neut % (Auto) 84 H (36-66) % Lymph % (Auto) 10 L (24-44) % [place] % (Auto) 6 (2-6) % Eos % (Auto) 1 L (2-4) % Baso % (Auto) 0 (0-1) % Sodium 138 L (140-148) mmol/L Potassium 3.9 (3.6-5.2) mmol/L Chloride 105 (100-108) mmol/L Carbon Dioxide 23 (21-32) mmol/L Anion Gap 13.9 (5.0-14.0) mmol/L BUN 26 H (7-18) mg/dL Creatinine 1.4 H (0.8-1.3) mg/dL Est Cr Clr Drug Dosing 57.74 mL/min Estimated GFR (MDRD) 51 L (>60) Glucose 172 H (74-106) mg/dL Calcium 8.4 L (8.5-10.1) mg/dL Total Bilirubin 0.3 (0.2-1.0) mg/dL AST 16 (15-37) U/L ALT 14 (12-78) U/L Alkaline Phosphatase 71 (46-116) U/L Total Protein 8.5 H (6.4-8.2) g/dL Albumin 3.4 (3.4-5.0) g/dL Globulin 5.1 H (2.3-3.5) g/dL Albumin/Globulin Ratio 0.7 L (1.2-2.2) Meds: Medications Generic Name Dose Route Start Last Admin Trade Name Freq PRN Reason Stop Dose Admin Acetaminophen 650 mg 08/15/17 19:29 08/16/17 05:25 Tylenol PO 650 mg Q4H PRN Administration Pain (Mild 1-3)/fever Aspirin 325 mg 08/16/17 09:00 Ecotrin PO DAILY [facility] Cilostazol 100 mg 08/15/17 21:00 08/15/17 20:39 Pletal PO 100 mg BID [facility] Administration Dextrose 15 gm 08/15/17 19:29 Glutose 15 PO ONETIME PRN Hypoglycemia Dextrose/Water 50 ml 08/15/17 19:29 Dextrose 50% In Water IV ONETIME PRN Hypoglycemia Enoxaparin Sodium 40 mg 08/16/17 20:00 Lovenox SUBCUT Q24H [facility] Ferrous Sulfate 325 mg 08/15/17 21:00 08/15/17 20:43 Ferrous Sulfate PO 325 mg BID [facility] Administration Piperacillin Sod/Tazobactam 50 mls @ 100 mls/hr 08/15/17 19:00 08/16/17 00:20 Sod 3.375 gm/ Sodium Chloride IV 100 mls/hr Q6H [facility] Administration Lactated Ringer's 1,000 mls @ 125 mls/hr 08/15/17 22:00 08/16/17 07:00 Ringers, Lactated IV 125 mls/hr ASDIRECTED [facility] Administration Vancomycin HCl 1.5 gm/ Sodium 250 mls @ 166.667 mls/hr 08/16/17 09:00 Chloride IV Q12H [facility] Insulin Aspart 0 unit 08/15/17 20:00 08/15/17 21:50 Novolog SUBCUT Not Given QIDACANDBED [facility] Protocol Insulin Detemir 12 unit 08/15/17 21:00 08/15/17 21:51 Levemir SUBCUT 12 units BEDTIME [facility] Administration Magnesium Hydroxide 30 ml 08/15/17 19:29 Milk Of Magnesia PO Q12H PRN Constipation Metoprolol Tartrate 12.5 mg 08/15/17 21:00 08/15/17 21:52 Lopressor PO Not Given BID [facility] Ondansetron HCl 4 mg 08/15/17 19:29 Zofran IV Q4H PRN Nausea/Vomiting Oxycodone HCl 10 mg 08/15/17 19:29 Oxycodone PO Q4H PRN Pain (moderate 4-6) Polyethylene Glycol 17 gm 08/15/17 19:29 Miralax PO DAILY PRN Constipation Pregabalin 150 mg 08/16/17 01:00 08/16/17 01:12 Lyrica PO 150 mg BID [facility] Administration Senna/Docusate Sodium 1 tab 08/15/17 19:29 Senna Plus PO BID PRN Constipation Simvastatin 10 mg 08/15/17 21:00 08/15/17 20:43 Zocor PO 10 mg BEDTIME [facility] Administration Sodium Chloride 10 ml 08/15/17 19:29 Saline Flush FLUSH ASDIRECTED PRN Keep Vein Open Valsartan 80 mg 08/16/17 09:00 Diovan PO DAILY [facility] Vancomycin HCl 1 gm 08/15/17 19:00 Vancomycin IV 08/16/17 08:00 .PHARMACY TO DOSE [facility] Discontinued Medications Generic Name Dose Route Start Last Admin Trade Name Jace PRN Reason Stop Dose Admin Enoxaparin Sodium 40 mg 08/15/17 19:29 08/15/17 20:38 Lovenox SUBCUT 40 mg DAILY [facility] Administration Lactated Ringer's 1,000 mls @ 500 mls/hr 08/15/17 19:00 08/15/17 19:09 Ringers, Lactated IV 08/15/17 22:01 500 mls/hr ASDIRECTED [facility] Administration Vancomycin HCl 2,000 mg/ 500 mls @ 250 mls/hr 08/15/17 20:00 08/15/17 20:42 Dextrose/Water IV 08/15/17 21:59 Not Given ONETIME ONE Vancomycin HCl 2,000 mg/ 500 mls @ 250 mls/hr 08/15/17 21:00 08/15/17 20:40 Sodium Chloride IV 08/15/17 22:59 250 mls/hr ONETIME ONE Administration Vancomycin HCl Confirm 08/15/17 20:24 08/15/17 20:43 Vancomycin Administered 08/15/17 20:25 Not Given [facility] - Re-Assessments/Exams Free Text/Narrative Re-Assessment/Exam: 08/15/17 18:22 An IV was started, blood cultures and a CBC were drawn as well as a BMP and the hospitalist service was consult to to admit the patient for IV antibiotics concerning right leg cellulitis and possible early sepsis. 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 insulin use: with penitentiary use Diabetes mellitus complication status: with skin complications Diabetes mellitus complication detail: with other skin complication Qualified Code(s): E11.628 - Type 2 diabetes mellitus with other skin complications - Discharge Information - My Orders Last 24 Hours: My Active Orders 08/15/17 17:39 Blood Culture x2 Reflex Set [OM.PC] Urgent 08/15/17 17:50 CULTURE BLOOD [BC] Urgent 08/15/17 18:04 CULTURE BLOOD [BC] Urgent - Assessment/Plan Last 24 Hours: My Active Orders 08/15/17 17:39 Blood Culture x2 Reflex Set [OM.PC] Urgent 08/15/17 17:50 CULTURE BLOOD [BC] Urgent 08/15/17 18:04 CULTURE BLOOD [BC] Urgent
[2017-08-15] MEDS ORDERED: Vancomycin 1 GM SDV IV SCH (19:00)
[2017-08-15] MEDS ORDERED: Lactated Ringers 1,000 ML IV SCH (19:00)
[2017-08-15] MEDS: Piperacillin/Tazobactam 3.375 GM in Sodium Chloride 0.9% 50 ML IV SCH (19:18)
--- NOTE | 2017-08-15 19:22 | PCM.HP ---
H&P History of Present Illness - General Date of Service: 08/15/17 Admit Problem/Dx: Source of Information: Patient, Old Records, Provider, RN Notes Reviewed History Limitations: Reports: No Limitations - History of Present Illness Initial Comments - Free Text/Narative: Mr. Butts is a 67-year-old gentleman who is admitted through the emergency department with cellulitis of his right lower leg and associated sepsis. He developed an upper respiratory tract infection 3 days prior to admission and was generally not feeling well because of that. Today he noted onset of fever with shaking chills and erythema of his right lower leg. 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 He does have underlying type 2 diabetes mellitus and is status post left below the knee amputation. - Related Data Allergies/Adverse Reactions: Allergies Allergy/AdvReac Type Severity Reaction Status Date / Time morphine Allergy Nausea and Verified 06/25/17 01:39 Vomiting thimerosal Allergy Cannot Verified 06/25/17 01:39 Remember Home Medications: Home Meds Aspirin 325 mg PO DAILY 03/16/14 [History] Cilostazol [Pletal] 100 mg PO BID 03/16/14 [History] Insulin Glarg,Human.Rec.Analog [Lantus] 12 units SUBCUT BEDTIME 03/16/14 [ History] Metoprolol Tartrate [Lopressor] 12.5 mg PO BID 03/16/14 [History] Valsartan [Diovan] 80 mg PO DAILY 03/16/14 [History] Simvastatin [Zocor] 10 mg PO BEDTIME 02/20/17 [History] Acetaminophen [Tylenol Extra Strength] 500 mg PO ASDIRECTED PRN 04/13/17 [ History] Amino Ac/Protein Hydr/Whey Pro [Liquacel Liquid Protein] 1 oz PO TID 04/13/17 [ History] Ferrous Sulfate 325 mg PO BID 04/13/17 [History] Insulin Aspart [NovoLOG] 5 unit SUBCUT ASDIRECTED 04/13/17 [History] Polyethylene Glycol 3350 [Miralax] 17 gm PO DAILY PRN 04/13/17 [History] Past Medical History Cardiovascular History: Reports: CAD, High Cholesterol, Hypertension, [place], PVD, Other (See Below) Other Cardiovascular History: massive edema ankles Genitourinary History: Reports: Other (See Below) Other Genitourinary History: decreased kidney function Musculoskeletal History: Reports: Amputation, Other (See Below) Other Musculoskeletal History: L leg trauma pto accident. ulcers on feet since 1995. April 20 2017 has a wound vac to left stump Neurological History: Reports: Neuropathy, Diabetic Endocrine/Metabolic History: Reports: Diabetes, Type II Hematologic History: Reports: Anemia, B12 Deficiency, Iron Deficiency Dermatologic History: Reports: Decubitus Ulcer, Venous Stasis Dermatitis, Other (See Below) Other Dermatologic History: states decubitus ulcer gone now. - Infectious Disease History Infectious Disease History: Reports: Chicken Pox, Measles, MRSA, Mumps Other Infectious Disease History: foot ulcer - Past Surgical History HEENT Surgical History: Reports: Adenoidectomy, Tonsillectomy Musculoskeletal Surgical History: Reports: Amputation, Other (See Below) Other Musculoskeletal Surgeries/Procedures:: left foot amputation February 2017 Social & Family History - Tobacco Use Smoking Status *Q: Never Smoker Second Hand Smoke Exposure: No - Caffeine Use Caffeine Use: Reports: Soda Other Caffeine Use: diet coke - Alcohol Use Days Per Week of Alcohol Use: 0 - Recreational Drug Use Recreational Drug Use: No H&P Review of Systems - Review of Systems: Review Of Systems: See Below General: Reports: Fever, Chills, Malaise, Weakness, Diaphoresis HEENT: Reports: No Symptoms Pulmonary: Reports: No Symptoms Cardiovascular: Reports: No Symptoms Gastrointestinal: Reports: No Symptoms Genitourinary: Reports: No Symptoms Musculoskeletal: Reports: No Symptoms Skin: Reports: Erythema (Right lower leg), Other (Chronic ulceration plantar aspect of the right heel) Psychiatric: Reports: No Symptoms Neurological: Reports: No Symptoms Hematologic/Lymphatic: Reports: No Symptoms Immunologic: Reports: No Symptoms Exam - Exam Exam: See Below - Vital Signs Vital Signs: Last Vital Signs Temp 101.3 F H 08/15/17 17:45 Pulse 118 H 08/15/17 19:01 Resp 16 08/15/17 19:01 BP 132/52 L 08/15/17 19:01 Pulse Ox 92 L 08/15/17 19:01 Weight: 225 lb - Exam Quality Assessment: DVT Prophylaxis General: Alert, Oriented, Cooperative, Mild Distress HEENT: Conjunctiva Clear, Hearing Intact, Normal Nasal Septum, Posterior Pharynx Clear, Pupils Equal. No: Mucosa Moist & [place] Neck: Supple, Trachea Midline, +2 Carotid Pulse wo Bruit Lungs: Clear to Auscultation, Normal Respiratory Effort Cardiovascular: Regular Rate, Regular Rhythm, Normal S1, Normal S2. No: Systolic Murmur, Diastolic Murmur GI/Abdominal Exam: Soft, Non-Tender, No Organomegaly, No Distention Back Exam: Normal Inspection, Full Range of Motion Extremities: Non-Tender, Increased Warmth, Redness Skin: Warm, Dry Neurological: Cranial Nerves Intact, Strength Equal Bilateral, Normal Speech, Normal Tone. No: Focal Deficit Neuro Extensive - Mental Status: Alert, Oriented x3, Normal Mood/Affect, Normal Cognition, Memory Intact - Patient Data Lab Results Last 24 hrs: Laboratory Results - last 24 hr 08/15/17 08/15/17 Range/Units 17:50 17:50 WBC 8.3 (4.5-11.0) K/uL RBC 3.76 L (4.30-5.90) M/uL Hgb 11.2 L (12.0-15.0) g/dL Hct 34.0 L (40.0-54.0) % MCV 90 (80-98) fL MCH 30 (27-31) pg MCHC 33 (32-36) % Plt Count 239 (150-400) K/uL Neut % (Auto) 84 H (36-66) % Lymph % (Auto) 10 L (24-44) % [place] % (Auto) 6 (2-6) % Eos % (Auto) 1 L (2-4) % Baso % (Auto) 0 (0-1) % Sodium 138 L (140-148) mmol/L Potassium 3.9 (3.6-5.2) mmol/L Chloride 105 (100-108) mmol/L Carbon Dioxide 23 (21-32) mmol/L Anion Gap 13.9 (5.0-14.0) mmol/L BUN 26 H (7-18) mg/dL Creatinine 1.4 H (0.8-1.3) mg/dL Est Cr Clr Drug Dosing 57.74 mL/min Estimated GFR (MDRD) 51 L (>60) Glucose 172 H (74-106) mg/dL Calcium 8.4 L (8.5-10.1) mg/dL Total Bilirubin 0.3 (0.2-1.0) mg/dL AST 16 (15-37) U/L ALT 14 (12-78) U/L Alkaline Phosphatase 71 (46-116) U/L Total Protein 8.5 H (6.4-8.2) g/dL Albumin 3.4 (3.4-5.0) g/dL Globulin 5.1 H (2.3-3.5) g/dL Albumin/Globulin Ratio 0.7 L (1.2-2.2) Result Diagrams: 08/15/17 17:50 08/15/17 17:50 *Q Meaningful Use (ADM) - VTE Risk Assess *Q Each Risk Factor Represents 1 Point: Obesity ( BMI > 25 kg/m2), Sepsis Total Score 1 Point Risk Factors: 2 Each Risk Factor Represents 2 Points: Age 60 - 74 Years Total Score 2 Point Risk Factors: 2 Each Risk Factor Represents 3 Points: None Total Score 3 Point Risk Factors: 0 Each Risk Factor Represents 5 Points: None Total Score 5 Point Risk Factors: 0 Venous Thromboembolism Risk Factor Score *Q: 4 Problem List Initiated/Reviewed/Updated: Yes Orders Last 24hrs: Active Orders 24 hr Category Date Time Status Patient Status Manage Transfer [TRANSFER] Routine ADT 08/15/17 18:58 Ordered CULTURE BLOOD [BC] Urgent Lab 08/15/17 17:50 Ordered CULTURE BLOOD [BC] Urgent Lab 08/15/17 18:04 Ordered Lactated Ringers [Ringers, Lactated] 1,000 ml Med 08/15/17 19:00 Active IV ASDIRECTED Piperacillin/Tazobactam [Zosyn] 3.375 gm Med 08/15/17 19:00 Ordered Sodium Chloride 0.9% [Normal Saline] 50 ml IV Q6H Vancomycin Med 08/15/17 19:00 Ordered 1 gm IV .PHARMACY TO DOSE Blood Culture x2 Reflex Set [OM.PC] Urgent Oth 08/15/17 17:39 Ordered Resuscitation Status Routine Resus Stat 08/15/17 19:00 Ordered Medication Orders Lactated Ringer's (Ringers, Lactated) 1,000 mls @ 500 mls/hr IV ASDIRECTED [facility] Stop: 08/15/17 22:01 Last Admin: 08/15/17 19:09 Dose: 500 mls/hr Piperacillin Sod/Tazobactam (Sod 3.375 gm/ Sodium Chloride) 50 mls @ 100 mls/ hr IV Q6H [facility] Vancomycin HCl (Vancomycin) 1 gm IV .PHARMACY TO DOSE [facility] Assessment/Plan Comment:: ASSESSMENT AND PLAN CELLULITIS RIGHT LOWER LEG WITH SEPSIS-abrupt onset of fever with chills and erythema of the right lower leg. He does have underlying type 2 diabetes mellitus as well as chronic kidney disease. 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 -Blood cultures pending -lactic acid pending -aggressive IV fluids for management of sepsis -IV vancomycin and Zosyn pending culture results TYPE 2 DIABETES MELLITUS -continue usual dose of long-acting insulin -4 times a day glucometers -moderate dose sliding scale NovoLog CHRONIC KIDNEY DISEASE STAGE III -Closely monitor renal function and urine output MAINTENANCE ISSUES -DVT prophylaxis; Lovenox 40 mg subcutaneous daily -GI prophylaxis; not indicated -Lopez catheter; not indicated -Nutrition; consistent carb diet -Nicotine dependence; not required CODE STATUS- FULL CODE ADMISSION STATUS-patient will be admitted to inpatient status, expect at least a 2 night hospital stay for evaluation and management of problems as outlined above. At the time of this admission I do not reasonably expected evaluation and management of this problem will require more than a 96 hour hospital stay. DISPOSITION-anticipate discharge to home after the hospital stay. PRIMARY CARE PROVIDER-Dr. Vickers
[2017-08-15] MEDS ORDERED: Sodium Chloride 0.9% 10 ML Syringe FLUSH PRN (19:29)
[2017-08-15] MEDS ORDERED: Enoxaparin 40 MG/0.4 ML Syringe SUBCUT SCH (19:29)
[2017-08-15] MEDS ORDERED: Magnesium Hydroxide 400 MG/5 ML Susp 30 ML Cup PO PRN (19:29)
[2017-08-15] MEDS ORDERED: 50% Dextrose in Water 50 ML Syringe IV PRN (19:29)
[2017-08-15] MEDS ORDERED: Glucose Gel 15 GM in 37.5 GM Tube PO PRN (19:29)
[2017-08-15] MEDS ORDERED: Ondansetron 4 MG/2 ML SDV IV PRN (19:29)
[2017-08-15] MEDS ORDERED: Polyethylene Glycol 3350 Powder 17 GM Packet PO PRN (19:29)
[2017-08-15] MEDS ORDERED: oxyCODONE 5 MG Tab PO PRN (19:29)
[2017-08-15] MEDS: Acetaminophen 325 MG Tab PO PRN (20:01)
[2017-08-15] MEDS ORDERED: Vancomycin 1,000 MG SDV ONE (20:24)
[2017-08-15] MEDS: Simvastatin 20 MG Tab PO SCH (20:43)
[2017-08-15] MEDS: Ferrous Sulfate 325 MG Tab PO SCH (20:43)
[2017-08-15] MEDS ORDERED: Insulin Detemir 100 Units/ML 3 ML Pen SUBCUT SCH (21:00)
[2017-08-15] MEDS: Insulin Aspart 100 Units/ML 3 ML Pen SUBCUT SCH (21:50)
[2017-08-15] MEDS: Metoprolol Tartrate 25 MG Tab PO SCH (21:52)
[2017-08-15] MEDS: Lactated Ringers 1,000 ML IV SCH (22:32)
[2017-08-16] MEDS: Piperacillin/Tazobactam 3.375 GM in Sodium Chloride 0.9% 50 ML IV SCH (00:20)
[2017-08-16] MEDS: Acetaminophen 325 MG Tab PO PRN ×3 (00:21→15:40)
[2017-08-16] MEDS: Pregabalin 75 MG Cap PO SCH ×3 (01:12→20:52)
[2017-08-16] MEDS: Lactated Ringers 1,000 ML IV SCH (07:00)
[2017-08-16] MEDS: Insulin Aspart 100 Units/ML 3 ML Pen SUBCUT SCH ×4 (07:51→20:47)
[2017-08-16] MEDS: Piperacillin/Tazobactam/Dext 3.375 GM in Premix Bag 1 BAG IV SCH ×3 (08:17→19:46)
[2017-08-16] MEDS: Ferrous Sulfate 325 MG Tab PO SCH ×2 (08:25→20:49)
[2017-08-16] MEDS: Metoprolol Tartrate 25 MG Tab PO SCH ×2 (08:25→20:49)
[2017-08-16] MEDS: Aspirin 325 MG Tab.EC PO SCH (08:25)
[2017-08-16] MEDS ORDERED: Potassium Chloride 40 MEQ in Premix Bag 1 BAG IV ONE (08:29)
[2017-08-16] MEDS ORDERED: Potassium Chloride 20 MEQ Tab.ER PO ONE (09:00)
[2017-08-16] MEDS ORDERED: Magnesium Sulfate/Water 2 GM in Premix Bag 1 BAG IV ONE (09:00)
--- NOTE | 2017-08-16 09:57 | PCM.PN ---
- General Info Date of Service: 08/16/17 Subjective Update: Mr. Butts has stabilized since admission, initially did show evidence of sepsis with tachycardia, borderline hypotension, and elevated lactic acid level associated with fever. Blood pressure and heart rate have now stabilized and lactic acid level is normal with no significant temperature elevation since earlier this morning. He reports that he feels improved denies any symptoms of chest pain or shortness of breath. - Patient Data Vitals - Most Recent: Last Vital Signs Temp 98.6 F 08/16/17 08:00 Pulse 91 08/16/17 08:25 Resp 24 H 08/16/17 08:00 BP 117/55 L 08/16/17 08:25 Pulse Ox 98 08/16/17 08:00 Weight - Most Recent: 245 lb 1.6 oz I&O - Last 24 Hours: Intake & Output 08/15/17 08/16/17 08/16/17 22:59 06:59 14:59 Intake Total 2785 300 Balance 2785 300 Lab Results Last 24 Hours: Laboratory Results - last 24 hr 08/15/17 08/15/17 08/15/17 Range/Units 17:50 17:50 19:23 WBC 8.3 (4.5-11.0) K/uL RBC 3.76 L (4.30-5.90) M/uL Hgb 11.2 L (12.0-15.0) g/dL Hct 34.0 L (40.0-54.0) % MCV 90 (80-98) fL MCH 30 (27-31) pg MCHC 33 (32-36) % Plt Count 239 (150-400) K/uL Neut % (Auto) 84 H (36-66) % Lymph % (Auto) 10 L (24-44) % O'Brien % (Auto) 6 (2-6) % Eos % (Auto) 1 L (2-4) % Baso % (Auto) 0 (0-1) % Sodium 138 L (140-148) mmol/L Potassium 3.9 (3.6-5.2) mmol/L Chloride 105 (100-108) mmol/L Carbon Dioxide 23 (21-32) mmol/L Anion Gap 13.9 (5.0-14.0) mmol/L BUN 26 H (7-18) mg/dL Creatinine 1.4 H (0.8-1.3) mg/dL Est Cr Clr Drug Dosing 57.74 mL/min Estimated GFR (MDRD) 51 L (>60) Glucose 172 H (74-106) mg/dL Lactic Acid 2.2 H (0.4-2.0) mmol/L Calcium 8.4 L (8.5-10.1) mg/dL Magnesium (1.8-2.4) mg/dL Total Bilirubin 0.3 (0.2-1.0) mg/dL AST 16 (15-37) U/L ALT 14 (12-78) U/L Alkaline Phosphatase 71 (46-116) U/L Total Protein 8.5 H (6.4-8.2) g/dL Albumin 3.4 (3.4-5.0) g/dL Globulin 5.1 H (2.3-3.5) g/dL Albumin/Globulin Ratio 0.7 L (1.2-2.2) 08/16/17 08/16/17 08/16/17 Range/Units 04:30 04:30 04:30 WBC 7.2 (4.5-11.0) K/uL RBC 3.35 L (4.30-5.90) M/uL Hgb 9.7 L (12.0-15.0) g/dL Hct 30.8 L (40.0-54.0) % MCV 92 (80-98) fL MCH 29 (27-31) pg MCHC 32 (32-36) % Plt Count 217 (150-400) K/uL Neut % (Auto) 75 H (36-66) % Lymph % (Auto) 18 L (24-44) % O'Brien % (Auto) 7 H (2-6) % Eos % (Auto) 0 L (2-4) % Baso % (Auto) 0 (0-1) % Sodium 134 L (140-148) mmol/L Potassium 3.1 L (3.6-5.2) mmol/L Chloride 103 (100-108) mmol/L Carbon Dioxide 24 (21-32) mmol/L Anion Gap 10.1 (5.0-14.0) mmol/L BUN 23 H (7-18) mg/dL Creatinine 1.5 H (0.8-1.3) mg/dL Est Cr Clr Drug Dosing 53.89 mL/min Estimated GFR (MDRD) 47 L (>60) Glucose 88 (74-106) mg/dL Lactic Acid 1.2 (0.4-2.0) mmol/L Calcium 7.9 L (8.5-10.1) mg/dL Magnesium 1.4 L (1.8-2.4) mg/dL Total Bilirubin (0.2-1.0) mg/dL AST (15-37) U/L ALT (12-78) U/L Alkaline Phosphatase (46-116) U/L Total Protein (6.4-8.2) g/dL Albumin (3.4-5.0) g/dL Globulin (2.3-3.5) g/dL Albumin/Globulin Ratio (1.2-2.2) Med Orders - Current: Current Medications Acetaminophen (Tylenol) 650 mg PO Q4H PRN PRN Reason: Pain (Mild 1-3)/fever Last Admin: 08/16/17 05:25 Dose: 650 mg Aspirin (Ecotrin) 325 mg PO DAILY [facility] Last Admin: 08/16/17 08:25 Dose: 325 mg Cilostazol (Pletal) 100 mg PO BID [facility] Last Admin: 08/16/17 08:25 Dose: 100 mg Dextrose (Glutose 15) 15 gm PO ONETIME PRN PRN Reason: Hypoglycemia Dextrose/Water (Dextrose 50% In Water) 50 ml IV ONETIME PRN PRN Reason: Hypoglycemia Enoxaparin Sodium (Lovenox) 40 mg SUBCUT Q24H [facility] Ferrous Sulfate (Ferrous Sulfate) 325 mg PO BID [facility] Last Admin: 08/16/17 08:25 Dose: 325 mg Vancomycin HCl 1.5 gm/ Sodium (Chloride) 250 mls @ 166.667 mls/hr IV Q12H [facility] Last Admin: 08/16/17 08:47 Dose: 166.667 mls/hr Piperacillin/Tazobactam/ (Dextrose 3.375 gm/ Premix) 50 mls @ 100 mls/hr IV Q6H [facility] Last Admin: 08/16/17 08:17 Dose: 100 mls/hr Magnesium Sulfate 2 gm/ Premix 50 mls @ 25 mls/hr IV ONETIME ONE Stop: 08/16/17 10:59 Potassium Chloride 20 meq/Lidocaine HCl 2 ml/ Sodium Chloride 112 mls @ 56 mls/ hr IV Q2H [facility] Stop: 08/16/17 13:29 Lactated Ringer's (Ringers, Lactated) 1,000 mls @ 75 mls/hr IV ASDIRECTED [facility] Insulin Aspart (Novolog) 0 unit SUBCUT QIDACANDBED [facility]; Protocol Last Admin: 08/16/17 07:51 Dose: Not Given Insulin Detemir (Levemir) 12 unit SUBCUT BEDTIME [facility] Magnesium Hydroxide (Milk Of Magnesia) 30 ml PO Q12H PRN PRN Reason: Constipation Metoprolol Tartrate (Lopressor) 12.5 mg PO BID [facility] Last Admin: 08/16/17 08:25 Dose: 12.5 mg Ondansetron HCl (Zofran) 4 mg IV Q4H PRN PRN Reason: Nausea/Vomiting Oxycodone HCl (Oxycodone) 10 mg PO Q4H PRN PRN Reason: Pain (moderate 4-6) Polyethylene Glycol (Miralax) 17 gm PO DAILY PRN PRN Reason: Constipation Pregabalin (Lyrica) 150 mg PO BID [facility] Last Admin: 08/16/17 08:25 Dose: 150 mg Senna/Docusate Sodium (Senna Plus) 1 tab PO BID PRN PRN Reason: Constipation Simvastatin (Zocor) 10 mg PO BEDTIME [facility] Last Admin: 08/15/17 20:43 Dose: 10 mg Sodium Chloride (Saline Flush) 10 ml FLUSH ASDIRECTED PRN PRN Reason: Keep Vein Open Valsartan (Diovan) 80 mg PO DAILY [facility] Last Admin: 08/16/17 08:25 Dose: 80 mg Discontinued Medications Enoxaparin Sodium (Lovenox) 40 mg SUBCUT DAILY [facility] Last Admin: 08/15/17 20:38 Dose: 40 mg Lactated Ringer's (Ringers, Lactated) 1,000 mls @ 500 mls/hr IV ASDIRECTED [facility] Stop: 08/15/17 22:01 Last Admin: 08/15/17 19:09 Dose: 500 mls/hr Piperacillin Sod/Tazobactam (Sod 3.375 gm/ Sodium Chloride) 50 mls @ 100 mls/ hr IV Q6H [facility] Last Admin: 08/16/17 00:20 Dose: 100 mls/hr Vancomycin HCl 2,000 mg/ (Dextrose/Water) 500 mls @ 250 mls/hr IV ONETIME ONE Stop: 08/15/17 21:59 Last Admin: 08/15/17 20:42 Dose: Not Given Lactated Ringer's (Ringers, Lactated) 1,000 mls @ 125 mls/hr IV ASDIRECTED [facility] Last Admin: 08/16/17 07:00 Dose: 125 mls/hr Vancomycin HCl 2,000 mg/ (Sodium Chloride) 500 mls @ 250 mls/hr IV ONETIME ONE Stop: 08/15/17 22:59 Last Admin: 08/15/17 20:40 Dose: 250 mls/hr Insulin Detemir (Levemir) 12 unit SUBCUT BEDTIME [facility] Last Admin: 08/15/17 21:51 Dose: 12 units Potassium Chloride (Klor-Con M20) 40 meq PO ONETIME ONE Stop: 08/16/17 09:01 Vancomycin HCl (Vancomycin) 1 gm IV .PHARMACY TO DOSE [facility] Stop: 08/16/17 08:00 Vancomycin HCl (Vancomycin) Confirm Administered Dose 2,000 mg .ROUTE .STK-MED ONE Stop: 08/15/17 20:25 Last Admin: 08/15/17 20:43 Dose: Not Given - Exam Quality Assessment: DVT Prophylaxis General: Alert, Oriented, Cooperative, Mild Distress Lungs: Clear to Auscultation, Normal Respiratory Effort Cardiovascular: Regular Rate, Regular Rhythm, No Murmurs GI/Abdominal Exam: Soft, Non-Tender, No Organomegaly, No Distention Extremities: Increased Warmth, Redness, Other (Cellulitis appears to be modestly improved compared to admission) Skin: Warm, Dry - Problem List Review Problem List Initiated/Reviewed/Updated: Yes - My Orders Last 24 Hours: My Active Orders 08/15/17 19:00 Resuscitation Status Routine 08/15/17 19:29 Patient Status [ADT] Routine Ambulate [RC] QID Blood Glucose Check, Bedside [RC] QIDACANDBED Cardiac Monitoring [RC] Q6H Communication Order [RC] STAT Diabetes Education [RC] Click to Edit Height and Weight [RC] DAILY Intake and Output [RC] QSHIFT Notify Provider Vital Signs [RC] ASDIRECTED Notify Provider [RC] PRN Oxygen Therapy [RC] PRN Peripheral IV Care [RC] Q12H Up With Assistance [RC] ASDIRECTED Up to Chair [RC] QID VTE/DVT Education [RC] Per Unit Routine Vital Signs [RC] Q2H Acetaminophen [Tylenol] 650 mg PO Q4H PRN Dextrose 50% in Water 50 ml IV ONETIME PRN Dextrose [Glutose 15] 15 gm PO ONETIME PRN Docusate Sodium/Sennosides [Senna Plus] 1 tab PO BID PRN Magnesium Hydroxide [Milk of Magnesia] 30 ml PO Q12H PRN Ondansetron [Zofran] 4 mg IV Q4H PRN Polyethylene Glycol 3350 [MiraLAX] 17 gm PO DAILY PRN Sodium Chloride 0.9% [Saline Flush] 10 ml FLUSH ASDIRECTED PRN oxyCODONE 10 mg PO Q4H PRN Peripheral IV Insertion Adult [OM.PC] Routine 08/15/17 20:00 Insulin Aspart [NovoLOG] See Protocol SUBCUT QIDACANDBED 08/15/17 21:00 Cilostazol [Pletal] 100 mg PO BID Ferrous Sulfate 325 mg PO BID Metoprolol Tartrate [Lopressor] 12.5 mg PO BID Simvastatin [Zocor] 10 mg PO BEDTIME 08/15/17 Dinner Consistent Carbohydrate Diet [DIET] 08/16/17 01:00 Pregabalin [Lyrica] 150 mg PO BID 08/16/17 08:00 Piperacillin/Tazobactam/Dext [Zosyn in Dextrose Iso-Osmotic 3.375 GM] 3.375 gm Premix Bag 1 bag IV Q6H 08/16/17 09:00 Aspirin [Ecotrin] 325 mg PO DAILY Magnesium Sulfate/Water [Magnesium Sulfate 2 GM in Water 50 ML] 2 gm Premix Bag 1 bag IV ONETIME Valsartan [Diovan] 80 mg PO DAILY Vancomycin 1.5 gm Sodium Chloride 0.9% [Normal Saline] 250 ml IV Q12H 08/16/17 09:30 Potassium Chloride 20 meq Lidocaine 1% [Xylocaine 1%] 2 ml Sodium Chloride 0.9 % [Normal Saline] 100 ml IV Q2H 08/16/17 10:00 Lactated Ringers [Ringers, Lactated] 1,000 ml IV ASDIRECTED 08/16/17 20:00 Enoxaparin [Lovenox] 40 mg SUBCUT Q24H 08/16/17 21:00 Insulin Detemir [Levemir] 12 unit SUBCUT BEDTIME 08/17/17 05:00 BASIC METABOLIC PANEL,BMP [CHEM] Timed CBC WITH AUTO DIFF [HEME] Timed MAGNESIUM [CHEM] Timed 08/17/17 07:30 GLUCOSE POC LAB TO COLLECT [POC] QIDACANDBED 08/17/17 11:30 GLUCOSE POC LAB TO COLLECT [POC] QIDACANDBED 08/17/17 16:30 GLUCOSE POC LAB TO COLLECT [POC] QIDACANDBED 08/17/17 21:00 GLUCOSE POC LAB TO COLLECT [POC] QIDACANDBED 08/18/17 07:30 GLUCOSE POC LAB TO COLLECT [POC] QIDACANDBED 08/18/17 11:30 GLUCOSE POC LAB TO COLLECT [POC] QIDACANDBED 08/18/17 16:30 GLUCOSE POC LAB TO COLLECT [POC] QIDACANDBED 08/18/17 21:00 GLUCOSE POC LAB TO COLLECT [POC] QIDACANDBED 08/19/17 07:30 GLUCOSE POC LAB TO COLLECT [POC] QIDACANDBED 08/19/17 11:30 GLUCOSE POC LAB TO COLLECT [POC] QIDACANDBED 08/19/17 16:30 GLUCOSE POC LAB TO COLLECT [POC] QIDACANDBED 08/19/17 21:00 GLUCOSE POC LAB TO COLLECT [POC] QIDACANDBED 08/20/17 07:30 GLUCOSE POC LAB TO COLLECT [POC] QIDACANDBED 08/20/17 11:30 GLUCOSE POC LAB TO COLLECT [POC] QIDACANDBED 08/20/17 16:30 GLUCOSE POC LAB TO COLLECT [POC] QIDACANDBED 08/20/17 21:00 GLUCOSE POC LAB TO COLLECT [POC] QIDACANDBED 08/21/17 07:30 GLUCOSE POC LAB TO COLLECT [POC] QIDACANDBED 08/21/17 11:30 GLUCOSE POC LAB TO COLLECT [POC] QIDACANDBED 08/21/17 16:30 GLUCOSE POC LAB TO COLLECT [POC] QIDACANDBED 08/21/17 21:00 GLUCOSE POC LAB TO COLLECT [POC] QIDACANDBED 08/22/17 07:30 GLUCOSE POC LAB TO COLLECT [POC] QIDACANDBED 08/22/17 11:30 GLUCOSE POC LAB TO COLLECT [POC] QIDACANDBED 08/22/17 16:30 GLUCOSE POC LAB TO COLLECT [POC] QIDACANDBED 08/22/17 21:00 GLUCOSE POC LAB TO COLLECT [POC] QIDACANDBED 08/23/17 07:30 GLUCOSE POC LAB TO COLLECT [POC] QIDACANDBED 08/23/17 11:30 GLUCOSE POC LAB TO COLLECT [POC] QIDACANDBED 08/23/17 16:30 GLUCOSE POC LAB TO COLLECT [POC] QIDACANDBED 08/23/17 21:00 GLUCOSE POC LAB TO COLLECT [POC] QIDACANDBED 08/24/17 07:30 GLUCOSE POC LAB TO COLLECT [POC] QIDACANDBED 08/24/17 11:30 GLUCOSE POC LAB TO COLLECT [POC] QIDACANDBED 08/24/17 16:30 GLUCOSE POC LAB TO COLLECT [POC] QIDACANDBED 08/24/17 21:00 GLUCOSE POC LAB TO COLLECT [POC] QIDACANDBED 08/25/17 07:30 GLUCOSE POC LAB TO COLLECT [POC] QIDACANDBED 08/25/17 11:30 GLUCOSE POC LAB TO COLLECT [POC] QIDACANDBED 08/25/17 16:30 GLUCOSE POC LAB TO COLLECT [POC] QIDACANDBED 08/25/17 21:00 GLUCOSE POC LAB TO COLLECT [POC] QIDACANDBED 08/26/17 07:30 GLUCOSE POC LAB TO COLLECT [POC] QIDACANDBED 08/26/17 11:30 GLUCOSE POC LAB TO COLLECT [POC] QIDACANDBED 08/26/17 16:30 GLUCOSE POC LAB TO COLLECT [POC] QIDACANDBED 08/26/17 21:00 GLUCOSE POC LAB TO COLLECT [POC] QIDACANDBED 08/27/17 07:30 GLUCOSE POC LAB TO COLLECT [POC] QIDACANDBED 08/27/17 11:30 GLUCOSE POC LAB TO COLLECT [POC] QIDACANDBED 08/27/17 16:30 GLUCOSE POC LAB TO COLLECT [POC] QIDACANDBED 08/27/17 21:00 GLUCOSE POC LAB TO COLLECT [POC] QIDACANDBED 08/28/17 07:30 GLUCOSE POC LAB TO COLLECT [POC] QIDACANDBED 08/28/17 11:30 GLUCOSE POC LAB TO COLLECT [POC] QIDACANDBED 08/28/17 16:30 GLUCOSE POC LAB TO COLLECT [POC] QIDACANDBED 08/28/17 21:00 GLUCOSE POC LAB TO COLLECT [POC] QIDACANDBED 08/29/17 07:30 GLUCOSE POC LAB TO COLLECT [POC] QIDACANDBED 08/29/17 11:30 GLUCOSE POC LAB TO COLLECT [POC] QIDACANDBED 08/29/17 16:30 GLUCOSE POC LAB TO COLLECT [POC] QIDACANDBED 08/29/17 21:00 GLUCOSE POC LAB TO COLLECT [POC] QIDACANDBED 08/30/17 07:30 GLUCOSE POC LAB TO COLLECT [POC] QIDACANDBED 08/30/17 11:30 GLUCOSE POC LAB TO COLLECT [POC] QIDACANDBED 08/30/17 16:30 GLUCOSE POC LAB TO COLLECT [POC] QIDACANDBED 08/30/17 21:00 GLUCOSE POC LAB TO COLLECT [POC] QIDACANDBED 08/31/17 07:30 GLUCOSE POC LAB TO COLLECT [POC] QIDACANDBED 08/31/17 11:30 GLUCOSE POC LAB TO COLLECT [POC] QIDACANDBED 08/31/17 16:30 GLUCOSE POC LAB TO COLLECT [POC] QIDACANDBED 08/31/17 21:00 GLUCOSE POC LAB TO COLLECT [POC] QIDACANDBED 09/01/17 07:30 GLUCOSE POC LAB TO COLLECT [POC] QIDACANDBED 09/01/17 11:30 GLUCOSE POC LAB TO COLLECT [POC] QIDACANDBED 09/01/17 16:30 GLUCOSE POC LAB TO COLLECT [POC] QIDACANDBED 09/01/17 21:00 GLUCOSE POC LAB TO COLLECT [POC] QIDACANDBED 09/02/17 07:30 GLUCOSE POC LAB TO COLLECT [POC] QIDACANDBED 09/02/17 11:30 GLUCOSE POC LAB TO COLLECT [POC] QIDACANDBED 09/02/17 16:30 GLUCOSE POC LAB TO COLLECT [POC] QIDACANDBED 09/02/17 21:00 GLUCOSE POC LAB TO COLLECT [POC] QIDACANDBED 09/03/17 07:30 GLUCOSE POC LAB TO COLLECT [POC] QIDACANDBED 09/03/17 11:30 GLUCOSE POC LAB TO COLLECT [POC] QIDACANDBED 09/03/17 16:30 GLUCOSE POC LAB TO COLLECT [POC] QIDACANDBED 09/03/17 21:00 GLUCOSE POC LAB TO COLLECT [POC] QIDACANDBED 09/04/17 07:30 GLUCOSE POC LAB TO COLLECT [POC] QIDACANDBED 09/04/17 11:30 GLUCOSE POC LAB TO COLLECT [POC] QIDACANDBED 09/04/17 16:30 GLUCOSE POC LAB TO COLLECT [POC] QIDACANDBED 09/04/17 21:00 GLUCOSE POC LAB TO COLLECT [POC] QIDACANDBED 09/05/17 07:30 GLUCOSE POC LAB TO COLLECT [POC] QIDACANDBED 09/05/17 11:30 GLUCOSE POC LAB TO COLLECT [POC] QIDACANDBED 09/05/17 16:30 GLUCOSE POC LAB TO COLLECT [POC] QIDACANDBED 09/05/17 21:00 GLUCOSE POC LAB TO COLLECT [POC] QIDACANDBED 09/06/17 07:30 GLUCOSE POC LAB TO COLLECT [POC] QIDACANDBED 09/06/17 11:30 GLUCOSE POC LAB TO COLLECT [POC] QIDACANDBED 09/06/17 16:30 GLUCOSE POC LAB TO COLLECT [POC] QIDACANDBED 09/06/17 21:00 GLUCOSE POC LAB TO COLLECT [POC] QIDACANDBED 09/07/17 07:30 GLUCOSE POC LAB TO COLLECT [POC] QIDACANDBED 09/07/17 11:30 GLUCOSE POC LAB TO COLLECT [POC] QIDACANDBED 09/07/17 16:30 GLUCOSE POC LAB TO COLLECT [POC] QIDACANDBED 09/07/17 21:00 GLUCOSE POC LAB TO COLLECT [POC] QIDACANDBED 09/08/17 07:30 GLUCOSE POC LAB TO COLLECT [POC] QIDACANDBED 09/08/17 11:30 GLUCOSE POC LAB TO COLLECT [POC] QIDACANDBED 09/08/17 16:30 GLUCOSE POC LAB TO COLLECT [POC] QIDACANDBED 09/08/17 21:00 GLUCOSE POC LAB TO COLLECT [POC] QIDACANDBED 09/09/17 07:30 GLUCOSE POC LAB TO COLLECT [POC] QIDACANDBED 09/09/17 11:30 GLUCOSE POC LAB TO COLLECT [POC] QIDACANDBED - Plan Plan:: ASSESSMENT AND PLAN CELLULITIS RIGHT LOWER LEG WITH SEPSIS-abrupt onset of fever with chills and erythema of the right lower leg. He does have underlying type 2 diabetes mellitus as well as chronic kidney disease. 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 Sepsis appears to have resolved there has been modest improvement in the cellulitis since admission, lactic acid level now within normal range -Blood cultures pending -Decrease IV rate to 75 mL/h -IV vancomycin and Zosyn pending culture results TYPE 2 DIABETES MELLITUS -continue usual dose of long-acting insulin -4 times a day glucometers -moderate dose sliding scale NovoLog CHRONIC KIDNEY DISEASE STAGE III -Closely monitor renal function and urine output MAINTENANCE ISSUES -DVT prophylaxis; Lovenox 40 mg subcutaneous daily -GI prophylaxis; not indicated -Lopez catheter; not indicated -Nutrition; consistent carb diet -Nicotine dependence; not required CODE STATUS- FULL CODE ADMISSION STATUS-patient will be admitted to inpatient status, expect at least a 2 night hospital stay for evaluation and management of problems as outlined above. At the time of this admission I do not reasonably expected evaluation and management of this problem will require more than a 96 hour hospital stay. DISPOSITION-anticipate discharge to home after the hospital stay. PRIMARY CARE PROVIDER-Dr. Vickers
[2017-08-16] MEDS ORDERED: Lactated Ringers 1,000 ML IV SCH (10:00)
[2017-08-16] MEDS: Potassium Chloride 20 MEQ, Lidocaine 1% 2 ML in Sodium Chloride 0.9% 100 ML IV SCH ×2 (10:44→12:36)
[2017-08-16] MEDS: Mometasone Furoate Nasal Spray 17 GM Canister NAS SCH (16:44)
[2017-08-16] MEDS: Insulin Detemir 100 Units/ML 3 ML Pen SUBCUT SCH (20:46)
[2017-08-16] MEDS: Enoxaparin 40 MG/0.4 ML Syringe SUBCUT SCH (20:48)
[2017-08-16] MEDS: Simvastatin 20 MG Tab PO SCH (20:50)
[2017-08-17] MEDS: Piperacillin/Tazobactam/Dext 3.375 GM in Premix Bag 1 BAG IV SCH ×4 (01:32→19:19)
[2017-08-17] MEDS: Acetaminophen 325 MG Tab PO PRN ×3 (01:51→19:19)
[2017-08-17] MEDS: Insulin Aspart 100 Units/ML 3 ML Pen SUBCUT SCH ×4 (07:41→22:13)
[2017-08-17] MEDS: Aspirin 325 MG Tab.EC PO SCH (08:03)
[2017-08-17] MEDS: Metoprolol Tartrate 25 MG Tab PO SCH ×2 (08:04→22:15)
[2017-08-17] MEDS: Ferrous Sulfate 325 MG Tab PO SCH ×2 (08:04→22:14)
[2017-08-17] MEDS: Mometasone Furoate Nasal Spray 17 GM Canister NAS SCH (08:05)
[2017-08-17] MEDS: Pregabalin 75 MG Cap PO SCH ×2 (08:08→22:20)
--- NOTE | 2017-08-17 09:44 | PCM.PN ---
- General Info Date of Service: 08/17/17 Subjective Update: Mr. Butts is been stable since yesterday with no further imaging instability or evidence of sepsis. Vital signs have been stable and he has been afebrile. There 's been further improvement in cellulitis in the leg and he denies significant pain. Functional Status: Reports: Pain Controlled, Urinating - Review of Systems General: Reports: Weakness. Denies: Fever, Chills Pulmonary: Reports: No Symptoms Cardiovascular: Reports: No Symptoms Gastrointestinal: Reports: No Symptoms Skin: Reports: Other (Erythema right lower leg improved from yesterday) - Patient Data Vitals - Most Recent: Last Vital Signs Temp 97.1 F 08/17/17 07:39 Pulse 83 08/17/17 08:04 Resp 21 H 08/17/17 07:39 BP 143/59 H 08/17/17 08:04 Pulse Ox 94 L 08/17/17 06:00 Weight - Most Recent: 579 lb 13.051 oz I&O - Last 24 Hours: Intake & Output 08/16/17 08/17/17 08/17/17 22:59 06:59 14:59 Intake Total 1153 958 Output Total 1200 Balance -47 958 Lab Results Last 24 Hours: Laboratory Results - last 24 hr 08/17/17 08/17/17 08/17/17 Range/Units 06:02 06:02 08:30 WBC 5.1 (4.5-11.0) K/uL RBC 3.35 L (4.30-5.90) M/uL Hgb 9.7 L (12.0-15.0) g/dL Hct 30.6 L (40.0-54.0) % MCV 91 (80-98) fL MCH 29 (27-31) pg MCHC 32 (32-36) % Plt Count 207 (150-400) K/uL Neut % (Auto) 66 (36-66) % Lymph % (Auto) 21 L (24-44) % [place] % (Auto) 10 H (2-6) % Eos % (Auto) 3 (2-4) % Baso % (Auto) 0 (0-1) % Sodium 138 L (140-148) mmol/L Potassium 3.8 (3.6-5.2) mmol/L Chloride 107 (100-108) mmol/L Carbon Dioxide 25 (21-32) mmol/L Anion Gap 9.8 (5.0-14.0) mmol/L BUN 16 (7-18) mg/dL Creatinine 1.5 H (0.8-1.3) mg/dL Est Cr Clr Drug Dosing 53.96 mL/min Estimated GFR (MDRD) 47 L (>60) Glucose 90 (74-106) mg/dL Calcium 8.3 L (8.5-10.1) mg/dL Magnesium 1.7 L (1.8-2.4) mg/dL Vancomycin Trough 19.8 (10.0-20.0) ug/mL Jose Luis Results Last 24 Hours: Microbiology 08/15/17 18:04 Aerobic Blood Culture - Preliminary Blood - Arm, Right NO GROWTH AFTER 1 DAY Anaerobic Blood Culture - Preliminary NO GROWTH AFTER 1 DAY 08/15/17 17:50 Aerobic Blood Culture - Preliminary Blood - Venous - Iv Start NO GROWTH AFTER 1 DAY Anaerobic Blood Culture - Preliminary NO GROWTH AFTER 1 DAY Med Orders - Current: Current Medications Acetaminophen (Tylenol) 650 mg PO Q4H PRN PRN Reason: Pain (Mild 1-3)/fever Last Admin: 08/17/17 06:07 Dose: 650 mg Aspirin (Ecotrin) 325 mg PO DAILY [facility] Last Admin: 08/17/17 08:03 Dose: 325 mg Cilostazol (Pletal) 100 mg PO BID [facility] Last Admin: 08/17/17 08:06 Dose: 100 mg Dextrose (Glutose 15) 15 gm PO ONETIME PRN PRN Reason: Hypoglycemia Dextrose/Water (Dextrose 50% In Water) 50 ml IV ONETIME PRN PRN Reason: Hypoglycemia Enoxaparin Sodium (Lovenox) 40 mg SUBCUT Q24H [facility] Last Admin: 08/16/17 20:48 Dose: 40 mg Ferrous Sulfate (Ferrous Sulfate) 325 mg PO BID [facility] Last Admin: 08/17/17 08:04 Dose: 325 mg Vancomycin HCl 1.5 gm/ Sodium (Chloride) 250 mls @ 166.667 mls/hr IV Q12H [facility] Last Admin: 08/17/17 08:31 Dose: 166.667 mls/hr Piperacillin/Tazobactam/ (Dextrose 3.375 gm/ Premix) 50 mls @ 100 mls/hr IV Q6H [facility] Last Admin: 08/17/17 07:42 Dose: 100 mls/hr Magnesium Sulfate 2 gm/ Premix 50 mls @ 25 mls/hr IV ONETIME ONE Stop: 08/17/17 11:59 Insulin Aspart (Novolog) 0 unit SUBCUT QIDACANDBED [facility]; Protocol Last Admin: 08/17/17 07:41 Dose: Not Given Insulin Detemir (Levemir) 12 unit SUBCUT BEDTIME [facility] Last Admin: 08/16/17 20:46 Dose: 12 units Magnesium Hydroxide (Milk Of Magnesia) 30 ml PO Q12H PRN PRN Reason: Constipation Metoprolol Tartrate (Lopressor) 12.5 mg PO BID [facility] Last Admin: 08/17/17 08:04 Dose: 12.5 mg Mometasone Furoate (Nasonex [place]) 0 gm LISA DAILY [facility] Last Admin: 08/17/17 08:05 Dose: 1 spr Ondansetron HCl (Zofran) 4 mg IV Q4H PRN PRN Reason: Nausea/Vomiting Oxycodone HCl (Oxycodone) 10 mg PO Q4H PRN PRN Reason: Pain (moderate 4-6) Polyethylene Glycol (Miralax) 17 gm PO DAILY PRN PRN Reason: Constipation Pregabalin (Lyrica) 150 mg PO BID [facility] Last Admin: 08/17/17 08:08 Dose: 150 mg Senna/Docusate Sodium (Senna Plus) 1 tab PO BID PRN PRN Reason: Constipation Simvastatin (Zocor) 10 mg PO BEDTIME [facility] Last Admin: 08/16/17 20:50 Dose: 10 mg Sodium Chloride (Saline Flush) 10 ml FLUSH ASDIRECTED PRN PRN Reason: Keep Vein Open Valsartan (Diovan) 80 mg PO DAILY [facility] Last Admin: 08/17/17 08:03 Dose: 80 mg Discontinued Medications Enoxaparin Sodium (Lovenox) 40 mg SUBCUT DAILY [facility] Last Admin: 08/15/17 20:38 Dose: 40 mg Lactated Ringer's (Ringers, Lactated) 1,000 mls @ 500 mls/hr IV ASDIRECTED [facility] Stop: 08/15/17 22:01 Last Admin: 08/15/17 19:09 Dose: 500 mls/hr Piperacillin Sod/Tazobactam (Sod 3.375 gm/ Sodium Chloride) 50 mls @ 100 mls/ hr IV Q6H [facility] Last Admin: 08/16/17 00:20 Dose: 100 mls/hr Vancomycin HCl 2,000 mg/ (Dextrose/Water) 500 mls @ 250 mls/hr IV ONETIME ONE Stop: 08/15/17 21:59 Last Admin: 08/15/17 20:42 Dose: Not Given Lactated Ringer's (Ringers, Lactated) 1,000 mls @ 125 mls/hr IV ASDIRECTED [facility] Last Admin: 08/16/17 07:00 Dose: 125 mls/hr Vancomycin HCl 2,000 mg/ (Sodium Chloride) 500 mls @ 250 mls/hr IV ONETIME ONE Stop: 08/15/17 22:59 Last Admin: 08/15/17 20:40 Dose: 250 mls/hr Magnesium Sulfate 2 gm/ Premix 50 mls @ 25 mls/hr IV ONETIME ONE Stop: 08/16/17 10:59 Last Admin: 08/16/17 10:44 Dose: 25 mls/hr Potassium Chloride 20 meq/Lidocaine HCl 2 ml/ Sodium Chloride 112 mls @ 56 mls/ hr IV Q2H [facility] Stop: 08/16/17 13:29 Last Admin: 08/16/17 12:36 Dose: 56 mls/hr Lactated Ringer's (Ringers, Lactated) 1,000 mls @ 75 mls/hr IV ASDIRECTED [facility] Last Admin: 08/16/17 20:58 Dose: 75 mls/hr Insulin Detemir (Levemir) 12 unit SUBCUT BEDTIME [facility] Last Admin: 08/15/17 21:51 Dose: 12 units Potassium Chloride (Klor-Con M20) 40 meq PO ONETIME ONE Stop: 08/16/17 09:01 Last Admin: 08/16/17 10:43 Dose: 40 meq Vancomycin HCl (Vancomycin) 1 gm IV .PHARMACY TO DOSE [facility] Stop: 08/16/17 08:00 Vancomycin HCl (Vancomycin) Confirm Administered Dose 2,000 mg .ROUTE .STK-MED ONE Stop: 08/15/17 20:25 Last Admin: 08/15/17 20:43 Dose: Not Given - Exam Quality Assessment: DVT Prophylaxis General: Alert, Oriented, Cooperative Lungs: Clear to Auscultation, Normal Respiratory Effort Cardiovascular: Regular Rate, Regular Rhythm, No Murmurs GI/Abdominal Exam: Soft, Non-Tender, No Organomegaly, No Distention Extremities: Non-Tender, No Pedal Edema Skin: Warm, Dry, Intact - Problem List Review Problem List Initiated/Reviewed/Updated: Yes - My Orders Last 24 Hours: My Active Orders 08/16/17 09:00 Aspirin [Ecotrin] 325 mg PO DAILY Valsartan [Diovan] 80 mg PO DAILY Vancomycin 1.5 gm Sodium Chloride 0.9% [Normal Saline] 250 ml IV Q12H 08/16/17 16:00 Mometasone Furoate [Nasonex [place]] See Dose Instructions LISA DAILY 08/16/17 20:00 Enoxaparin [Lovenox] 40 mg SUBCUT Q24H 08/16/17 21:00 Insulin Detemir [Levemir] 12 unit SUBCUT BEDTIME 08/17/17 08:36 Convert IV to Saline Lock [OM.PC] Routine 08/17/17 10:00 Magnesium Sulfate/Water [Magnesium Sulfate 2 GM in Water 50 ML] 2 gm Premix Bag 1 bag IV ONETIME 08/18/17 05:00 BASIC METABOLIC PANEL,BMP [CHEM] Timed MAGNESIUM [CHEM] Timed 08/18/17 07:30 GLUCOSE POC LAB TO COLLECT [POC] QIDACANDBED 08/18/17 11:30 GLUCOSE POC LAB TO COLLECT [POC] QIDACANDBED 08/18/17 16:30 GLUCOSE POC LAB TO COLLECT [POC] QIDACANDBED 08/18/17 21:00 GLUCOSE POC LAB TO COLLECT [POC] QIDACANDBED 08/19/17 07:30 GLUCOSE POC LAB TO COLLECT [POC] QIDACANDBED 08/19/17 11:30 GLUCOSE POC LAB TO COLLECT [POC] QIDACANDBED 08/19/17 16:30 GLUCOSE POC LAB TO COLLECT [POC] QIDACANDBED 08/19/17 21:00 GLUCOSE POC LAB TO COLLECT [POC] QIDACANDBED 08/20/17 07:30 GLUCOSE POC LAB TO COLLECT [POC] QIDACANDBED 08/20/17 11:30 GLUCOSE POC LAB TO COLLECT [POC] QIDACANDBED 08/20/17 16:30 GLUCOSE POC LAB TO COLLECT [POC] QIDACANDBED 08/20/17 21:00 GLUCOSE POC LAB TO COLLECT [POC] QIDACANDBED 08/21/17 07:30 GLUCOSE POC LAB TO COLLECT [POC] QIDACANDBED 08/21/17 11:30 GLUCOSE POC LAB TO COLLECT [POC] QIDACANDBED 08/21/17 16:30 GLUCOSE POC LAB TO COLLECT [POC] QIDACANDBED 08/21/17 21:00 GLUCOSE POC LAB TO COLLECT [POC] QIDACANDBED 08/22/17 07:30 GLUCOSE POC LAB TO COLLECT [POC] QIDACANDBED 08/22/17 11:30 GLUCOSE POC LAB TO COLLECT [POC] QIDACANDBED 08/22/17 16:30 GLUCOSE POC LAB TO COLLECT [POC] QIDACANDBED 08/22/17 21:00 GLUCOSE POC LAB TO COLLECT [POC] QIDACANDBED 08/23/17 07:30 GLUCOSE POC LAB TO COLLECT [POC] QIDACANDBED 08/23/17 11:30 GLUCOSE POC LAB TO COLLECT [POC] QIDACANDBED 08/23/17 16:30 GLUCOSE POC LAB TO COLLECT [POC] QIDACANDBED 08/23/17 21:00 GLUCOSE POC LAB TO COLLECT [POC] QIDACANDBED 08/24/17 07:30 GLUCOSE POC LAB TO COLLECT [POC] QIDACANDBED 08/24/17 11:30 GLUCOSE POC LAB TO COLLECT [POC] QIDACANDBED 08/24/17 16:30 GLUCOSE POC LAB TO COLLECT [POC] QIDACANDBED 08/24/17 21:00 GLUCOSE POC LAB TO COLLECT [POC] QIDACANDBED 08/25/17 07:30 GLUCOSE POC LAB TO COLLECT [POC] QIDACANDBED 08/25/17 11:30 GLUCOSE POC LAB TO COLLECT [POC] QIDACANDBED 08/25/17 16:30 GLUCOSE POC LAB TO COLLECT [POC] QIDACANDBED 08/25/17 21:00 GLUCOSE POC LAB TO COLLECT [POC] QIDACANDBED 08/26/17 07:30 GLUCOSE POC LAB TO COLLECT [POC] QIDACANDBED 08/26/17 11:30 GLUCOSE POC LAB TO COLLECT [POC] QIDACANDBED 08/26/17 16:30 GLUCOSE POC LAB TO COLLECT [POC] QIDACANDBED 08/26/17 21:00 GLUCOSE POC LAB TO COLLECT [POC] QIDACANDBED 08/27/17 07:30 GLUCOSE POC LAB TO COLLECT [POC] QIDACANDBED 08/27/17 11:30 GLUCOSE POC LAB TO COLLECT [POC] QIDACANDBED 08/27/17 16:30 GLUCOSE POC LAB TO COLLECT [POC] QIDACANDBED 08/27/17 21:00 GLUCOSE POC LAB TO COLLECT [POC] QIDACANDBED 08/28/17 07:30 GLUCOSE POC LAB TO COLLECT [POC] QIDACANDBED 08/28/17 11:30 GLUCOSE POC LAB TO COLLECT [POC] QIDACANDBED 08/28/17 16:30 GLUCOSE POC LAB TO COLLECT [POC] QIDACANDBED 08/28/17 21:00 GLUCOSE POC LAB TO COLLECT [POC] QIDACANDBED 08/29/17 07:30 GLUCOSE POC LAB TO COLLECT [POC] QIDACANDBED 08/29/17 11:30 GLUCOSE POC LAB TO COLLECT [POC] QIDACANDBED 08/29/17 16:30 GLUCOSE POC LAB TO COLLECT [POC] QIDACANDBED 08/29/17 21:00 GLUCOSE POC LAB TO COLLECT [POC] QIDACANDBED 08/30/17 07:30 GLUCOSE POC LAB TO COLLECT [POC] QIDACANDBED 08/30/17 11:30 GLUCOSE POC LAB TO COLLECT [POC] QIDACANDBED 08/30/17 16:30 GLUCOSE POC LAB TO COLLECT [POC] QIDACANDBED 08/30/17 21:00 GLUCOSE POC LAB TO COLLECT [POC] QIDACANDBED 08/31/17 07:30 GLUCOSE POC LAB TO COLLECT [POC] QIDACANDBED 08/31/17 11:30 GLUCOSE POC LAB TO COLLECT [POC] QIDACANDBED 08/31/17 16:30 GLUCOSE POC LAB TO COLLECT [POC] QIDACANDBED 08/31/17 21:00 GLUCOSE POC LAB TO COLLECT [POC] QIDACANDBED 09/01/17 07:30 GLUCOSE POC LAB TO COLLECT [POC] QIDACANDBED 09/01/17 11:30 GLUCOSE POC LAB TO COLLECT [POC] QIDACANDBED 09/01/17 16:30 GLUCOSE POC LAB TO COLLECT [POC] QIDACANDBED 09/01/17 21:00 GLUCOSE POC LAB TO COLLECT [POC] QIDACANDBED 09/02/17 07:30 GLUCOSE POC LAB TO COLLECT [POC] QIDACANDBED 09/02/17 11:30 GLUCOSE POC LAB TO COLLECT [POC] QIDACANDBED 09/02/17 16:30 GLUCOSE POC LAB TO COLLECT [POC] QIDACANDBED 09/02/17 21:00 GLUCOSE POC LAB TO COLLECT [POC] QIDACANDBED 09/03/17 07:30 GLUCOSE POC LAB TO COLLECT [POC] QIDACANDBED 09/03/17 11:30 GLUCOSE POC LAB TO COLLECT [POC] QIDACANDBED 09/03/17 16:30 GLUCOSE POC LAB TO COLLECT [POC] QIDACANDBED 09/03/17 21:00 GLUCOSE POC LAB TO COLLECT [POC] QIDACANDBED 09/04/17 07:30 GLUCOSE POC LAB TO COLLECT [POC] QIDACANDBED 09/04/17 11:30 GLUCOSE POC LAB TO COLLECT [POC] QIDACANDBED 09/04/17 16:30 GLUCOSE POC LAB TO COLLECT [POC] QIDACANDBED 09/04/17 21:00 GLUCOSE POC LAB TO COLLECT [POC] QIDACANDBED 09/05/17 07:30 GLUCOSE POC LAB TO COLLECT [POC] QIDACANDBED 09/05/17 11:30 GLUCOSE POC LAB TO COLLECT [POC] QIDACANDBED 09/05/17 16:30 GLUCOSE POC LAB TO COLLECT [POC] QIDACANDBED 09/05/17 21:00 GLUCOSE POC LAB TO COLLECT [POC] QIDACANDBED 09/06/17 07:30 GLUCOSE POC LAB TO COLLECT [POC] QIDACANDBED 09/06/17 11:30 GLUCOSE POC LAB TO COLLECT [POC] QIDACANDBED 09/06/17 16:30 GLUCOSE POC LAB TO COLLECT [POC] QIDACANDBED 09/06/17 21:00 GLUCOSE POC LAB TO COLLECT [POC] QIDACANDBED 09/07/17 07:30 GLUCOSE POC LAB TO COLLECT [POC] QIDACANDBED 09/07/17 11:30 GLUCOSE POC LAB TO COLLECT [POC] QIDACANDBED 09/07/17 16:30 GLUCOSE POC LAB TO COLLECT [POC] QIDACANDBED 09/07/17 21:00 GLUCOSE POC LAB TO COLLECT [POC] QIDACANDBED 09/08/17 07:30 GLUCOSE POC LAB TO COLLECT [POC] QIDACANDBED 09/08/17 11:30 GLUCOSE POC LAB TO COLLECT [POC] QIDACANDBED 09/08/17 16:30 GLUCOSE POC LAB TO COLLECT [POC] QIDACANDBED 09/08/17 21:00 GLUCOSE POC LAB TO COLLECT [POC] QIDACANDBED 09/09/17 07:30 GLUCOSE POC LAB TO COLLECT [POC] QIDACANDBED 09/09/17 11:30 GLUCOSE POC LAB TO COLLECT [POC] QIDACANDBED - Plan Plan:: ASSESSMENT AND PLAN CELLULITIS RIGHT LOWER LEG WITH SEPSIS-abrupt onset of fever with chills and erythema of the right lower leg. He does have underlying type 2 diabetes mellitus as well as chronic kidney disease. 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 Further improvement of cellulitis noted over the past 24 hours -Blood cultures pending -Saline lock IV -IV vancomycin and Zosyn pending culture results TYPE 2 DIABETES MELLITUS -continue usual dose of long-acting insulin -4 times a day glucometers -moderate dose sliding scale NovoLog CHRONIC KIDNEY DISEASE STAGE III-renal function has remained stable thus far -Closely monitor renal function and urine output MAINTENANCE ISSUES -DVT prophylaxis; Lovenox 40 mg subcutaneous daily -GI prophylaxis; not indicated -Lopez catheter; not indicated -Nutrition; consistent carb diet -Nicotine dependence; not required CODE STATUS- FULL CODE ADMISSION STATUS-patient will be admitted to inpatient status, expect at least a 2 night hospital stay for evaluation and management of problems as outlined above. At the time of this admission I do not reasonably expected evaluation and management of this problem will require more than a 96 hour hospital stay. DISPOSITION-anticipate discharge to home after the hospital stay. PRIMARY CARE PROVIDER-Dr. Vickers
[2017-08-17] MEDS ORDERED: Magnesium Sulfate/Water 2 GM in Premix Bag 1 BAG IV ONE (10:00)
[2017-08-17] MEDS: Enoxaparin 40 MG/0.4 ML Syringe SUBCUT SCH (19:20)
[2017-08-17] MEDS: Simvastatin 20 MG Tab PO SCH (22:16)
[2017-08-17] MEDS: Insulin Detemir 100 Units/ML 3 ML Pen SUBCUT SCH (22:29)
[2017-08-18] MEDS: Piperacillin/Tazobactam/Dext 3.375 GM in Premix Bag 1 BAG IV SCH ×4 (01:52→19:44)
[2017-08-18] MEDS: Acetaminophen 325 MG Tab PO PRN ×2 (02:03→14:23)
[2017-08-18] MEDS: Insulin Aspart 100 Units/ML 3 ML Pen SUBCUT SCH ×5 (07:35→21:49)
[2017-08-18] MEDS: Ferrous Sulfate 325 MG Tab PO SCH ×2 (09:44→21:33)
[2017-08-18] MEDS: Metoprolol Tartrate 25 MG Tab PO SCH ×2 (09:44→21:40)
[2017-08-18] MEDS: Aspirin 325 MG Tab.EC PO SCH (09:44)
[2017-08-18] MEDS: Magnesium Oxide 400 MG Tab PO SCH ×2 (09:45→21:36)
[2017-08-18] MEDS: Pregabalin 75 MG Cap PO SCH ×2 (09:45→21:40)
[2017-08-18] MEDS: Mometasone Furoate Nasal Spray 17 GM Canister NAS SCH (09:46)
[2017-08-18] MEDS: Magnesium Sulfate/Water 2 GM in Premix Bag 1 BAG IV SCH ×2 (10:01→15:42)
--- NOTE | 2017-08-18 13:55 | PCM.PN ---
- General Info Date of Service: 08/18/17 Subjective Update: Mr. Butts has been stable over the past 24 hours, with further improvement in cellulitis of the right lower leg. Vital signs have been stable and he has only had mild temperature elevations. White blood cell count has normalized and he denies significant pain in the leg. - Review of Systems General: Reports: Fever. Denies: Weakness, Chills Pulmonary: Reports: No Symptoms Cardiovascular: Reports: No Symptoms Gastrointestinal: Reports: No Symptoms Skin: Reports: Other (Improved but persistent cellulitis right lower leg) - Patient Data Vitals - Most Recent: Last Vital Signs Temp 98.7 F 08/18/17 10:55 Pulse 78 08/18/17 10:55 Resp 16 08/18/17 10:55 BP 131/63 08/18/17 10:55 Pulse Ox 94 L 08/18/17 10:55 Weight - Most Recent: 263 lb I&O - Last 24 Hours: Intake & Output 08/17/17 08/18/17 08/18/17 22:59 06:59 14:59 Intake Total 650 300 805 Balance 650 300 805 Lab Results Last 24 Hours: Laboratory Results - last 24 hr 08/18/17 Range/Units 04:48 Sodium 139 L (140-148) mmol/L Potassium 3.6 (3.6-5.2) mmol/L Chloride 106 (100-108) mmol/L Carbon Dioxide 27 (21-32) mmol/L Anion Gap 9.6 (5.0-14.0) mmol/L BUN 13 (7-18) mg/dL Creatinine 1.4 H (0.8-1.3) mg/dL Est Cr Clr Drug Dosing 57.82 mL/min Estimated GFR (MDRD) 51 L (>60) Glucose 116 H (74-106) mg/dL Calcium 8.5 (8.5-10.1) mg/dL Magnesium 1.5 L (1.8-2.4) mg/dL Jose Luis Results Last 24 Hours: Microbiology 08/15/17 18:04 Aerobic Blood Culture - Preliminary Blood - Arm, Right NO GROWTH AFTER 2 DAYS Anaerobic Blood Culture - Preliminary NO GROWTH AFTER 2 DAYS 08/15/17 17:50 Aerobic Blood Culture - Preliminary Blood - Venous - Iv Start NO GROWTH AFTER 2 DAYS Anaerobic Blood Culture - Preliminary NO GROWTH AFTER 2 DAYS Med Orders - Current: Current Medications Acetaminophen (Tylenol) 650 mg PO Q4H PRN PRN Reason: Pain (Mild 1-3)/fever Last Admin: 08/18/17 02:03 Dose: 650 mg Aspirin (Ecotrin) 325 mg PO DAILY [facility] Last Admin: 08/18/17 09:44 Dose: 325 mg Cilostazol (Pletal) 100 mg PO BID [facility] Last Admin: 08/18/17 09:46 Dose: 100 mg Dextrose (Glutose 15) 15 gm PO ONETIME PRN PRN Reason: Hypoglycemia Dextrose/Water (Dextrose 50% In Water) 50 ml IV ONETIME PRN PRN Reason: Hypoglycemia Enoxaparin Sodium (Lovenox) 40 mg SUBCUT Q24H [facility] Last Admin: 08/17/17 19:20 Dose: 40 mg Ferrous Sulfate (Ferrous Sulfate) 325 mg PO BID [facility] Last Admin: 08/18/17 09:44 Dose: 325 mg Vancomycin HCl 1.5 gm/ Sodium (Chloride) 250 mls @ 166.667 mls/hr IV Q12H [facility] Last Admin: 08/18/17 09:40 Dose: 166.667 mls/hr Piperacillin/Tazobactam/ (Dextrose 3.375 gm/ Premix) 50 mls @ 100 mls/hr IV Q6H [facility] Last Admin: 08/18/17 07:47 Dose: 100 mls/hr Magnesium Sulfate 2 gm/ Premix 50 mls @ 25 mls/hr IV Q6H [facility] Stop: 08/18/17 16:59 Last Admin: 08/18/17 10:01 Dose: 25 mls/hr Insulin Aspart (Novolog) 0 unit SUBCUT QIDACANDBED [facility]; Protocol Last Admin: 08/18/17 12:59 Dose: 2 units Insulin Detemir (Levemir) 12 unit SUBCUT BEDTIME [facility] Last Admin: 08/17/17 22:29 Dose: 12 units Magnesium Hydroxide (Milk Of Magnesia) 30 ml PO Q12H PRN PRN Reason: Constipation Magnesium Oxide (Magnesium Oxide) 400 mg PO BID [facility] Last Admin: 08/18/17 09:45 Dose: 400 mg Metoprolol Tartrate (Lopressor) 12.5 mg PO BID [facility] Last Admin: 08/18/17 09:44 Dose: 12.5 mg Mometasone Furoate (Nasonex [place]) 0 gm LISA DAILY [facility] Last Admin: 08/18/17 09:46 Dose: Not Given Ondansetron HCl (Zofran) 4 mg IV Q4H PRN PRN Reason: Nausea/Vomiting Oxycodone HCl (Oxycodone) 10 mg PO Q4H PRN PRN Reason: Pain (moderate 4-6) Polyethylene Glycol (Miralax) 17 gm PO DAILY PRN PRN Reason: Constipation Pregabalin (Lyrica) 150 mg PO BID [facility] Last Admin: 08/18/17 09:45 Dose: 150 mg Senna/Docusate Sodium (Senna Plus) 1 tab PO BID PRN PRN Reason: Constipation Simvastatin (Zocor) 10 mg PO BEDTIME [facility] Last Admin: 08/17/17 22:16 Dose: 10 mg Sodium Chloride (Saline Flush) 10 ml FLUSH ASDIRECTED PRN PRN Reason: Keep Vein Open Last Admin: 08/18/17 07:43 Dose: 10 ml Valsartan (Diovan) 80 mg PO DAILY [facility] Last Admin: 08/18/17 09:44 Dose: 80 mg Discontinued Medications Enoxaparin Sodium (Lovenox) 40 mg SUBCUT DAILY [facility] Last Admin: 08/15/17 20:38 Dose: 40 mg Lactated Ringer's (Ringers, Lactated) 1,000 mls @ 500 mls/hr IV ASDIRECTED [facility] Stop: 08/15/17 22:01 Last Admin: 08/15/17 19:09 Dose: 500 mls/hr Piperacillin Sod/Tazobactam (Sod 3.375 gm/ Sodium Chloride) 50 mls @ 100 mls/ hr IV Q6H [facility] Last Admin: 08/16/17 00:20 Dose: 100 mls/hr Vancomycin HCl 2,000 mg/ (Dextrose/Water) 500 mls @ 250 mls/hr IV ONETIME ONE Stop: 08/15/17 21:59 Last Admin: 08/15/17 20:42 Dose: Not Given Lactated Ringer's (Ringers, Lactated) 1,000 mls @ 125 mls/hr IV ASDIRECTED [facility] Last Admin: 08/16/17 07:00 Dose: 125 mls/hr Vancomycin HCl 2,000 mg/ (Sodium Chloride) 500 mls @ 250 mls/hr IV ONETIME ONE Stop: 08/15/17 22:59 Last Admin: 08/15/17 20:40 Dose: 250 mls/hr Magnesium Sulfate 2 gm/ Premix 50 mls @ 25 mls/hr IV ONETIME ONE Stop: 08/16/17 10:59 Last Admin: 08/16/17 10:44 Dose: 25 mls/hr Potassium Chloride 20 meq/Lidocaine HCl 2 ml/ Sodium Chloride 112 mls @ 56 mls/ hr IV Q2H [facility] Stop: 08/16/17 13:29 Last Admin: 08/16/17 12:36 Dose: 56 mls/hr Lactated Ringer's (Ringers, Lactated) 1,000 mls @ 75 mls/hr IV ASDIRECTED [facility] Last Admin: 08/16/17 20:58 Dose: 75 mls/hr Magnesium Sulfate 2 gm/ Premix 50 mls @ 25 mls/hr IV ONETIME ONE Stop: 08/17/17 11:59 Last Admin: 08/17/17 09:53 Dose: 25 mls/hr Insulin Detemir (Levemir) 12 unit SUBCUT BEDTIME [facility] Last Admin: 08/15/17 21:51 Dose: 12 units Potassium Chloride (Klor-Con M20) 40 meq PO ONETIME ONE Stop: 08/16/17 09:01 Last Admin: 08/16/17 10:43 Dose: 40 meq Vancomycin HCl (Vancomycin) 1 gm IV .PHARMACY TO DOSE [facility] Stop: 08/16/17 08:00 Vancomycin HCl (Vancomycin) Confirm Administered Dose 2,000 mg .ROUTE .STK-MED ONE Stop: 08/15/17 20:25 Last Admin: 08/15/17 20:43 Dose: Not Given - Exam Quality Assessment: DVT Prophylaxis General: Alert, Oriented, Cooperative, No Acute Distress Lungs: Clear to Auscultation, Normal Respiratory Effort Cardiovascular: Regular Rate, Regular Rhythm, No Murmurs GI/Abdominal Exam: Soft, Non-Tender, No Organomegaly, No Distention Extremities: Other (Area of erythema right lower leg has significantly improved but not totally resolved) Skin: Warm, Dry - Problem List Review Problem List Initiated/Reviewed/Updated: Yes - My Orders Last 24 Hours: My Active Orders 08/17/17 13:18 Transfer Patient (Change bed) [ADT] Routine 08/18/17 09:00 Magnesium Oxide 400 mg PO BID Magnesium Sulfate/Water [Magnesium Sulfate 2 GM in Water 50 ML] 2 gm Premix Bag 1 bag IV Q6H 08/18/17 16:30 GLUCOSE POC LAB TO COLLECT [POC] QIDACANDBED 08/18/17 21:00 GLUCOSE POC LAB TO COLLECT [POC] QIDACANDBED 08/19/17 05:00 BASIC METABOLIC PANEL,BMP [CHEM] Timed MAGNESIUM [CHEM] Timed 08/19/17 07:30 GLUCOSE POC LAB TO COLLECT [POC] QIDACANDBED 08/19/17 11:30 GLUCOSE POC LAB TO COLLECT [POC] QIDACANDBED 08/19/17 16:30 GLUCOSE POC LAB TO COLLECT [POC] QIDACANDBED 08/19/17 21:00 GLUCOSE POC LAB TO COLLECT [POC] QIDACANDBED 08/20/17 07:30 GLUCOSE POC LAB TO COLLECT [POC] QIDACANDBED 08/20/17 11:30 GLUCOSE POC LAB TO COLLECT [POC] QIDACANDBED 08/20/17 16:30 GLUCOSE POC LAB TO COLLECT [POC] QIDACANDBED 08/20/17 21:00 GLUCOSE POC LAB TO COLLECT [POC] QIDACANDBED 08/21/17 07:30 GLUCOSE POC LAB TO COLLECT [POC] QIDACANDBED 08/21/17 11:30 GLUCOSE POC LAB TO COLLECT [POC] QIDACANDBED 08/21/17 16:30 GLUCOSE POC LAB TO COLLECT [POC] QIDACANDBED 08/21/17 21:00 GLUCOSE POC LAB TO COLLECT [POC] QIDACANDBED 08/22/17 07:30 GLUCOSE POC LAB TO COLLECT [POC] QIDACANDBED 08/22/17 11:30 GLUCOSE POC LAB TO COLLECT [POC] QIDACANDBED 08/22/17 16:30 GLUCOSE POC LAB TO COLLECT [POC] QIDACANDBED 08/22/17 21:00 GLUCOSE POC LAB TO COLLECT [POC] QIDACANDBED - Plan Plan:: ASSESSMENT AND PLAN CELLULITIS RIGHT LOWER LEG WITH SEPSIS-area of cellulitis has significantly improved over the past 24 hours but not totally resolved. -Blood cultures pending -Saline lock IV -IV vancomycin and Zosyn pending culture results TYPE 2 DIABETES MELLITUS -continue usual dose of long-acting insulin -4 times a day glucometers -moderate dose sliding scale NovoLog CHRONIC KIDNEY DISEASE STAGE III-renal function has remained stable thus far -Closely monitor renal function and urine output MAINTENANCE ISSUES -DVT prophylaxis; Lovenox 40 mg subcutaneous daily -GI prophylaxis; not indicated -Lopez catheter; not indicated -Nutrition; consistent carb diet -Nicotine dependence; not required CODE STATUS- FULL CODE ADMISSION STATUS-patient will be admitted to inpatient status, expect at least a 2 night hospital stay for evaluation and management of problems as outlined above. At the time of this admission I do not reasonably expected evaluation and management of this problem will require more than a 96 hour hospital stay. DISPOSITION-anticipate discharge to home after the hospital stay. PRIMARY CARE PROVIDER-Dr. Vickers
[2017-08-18] MEDS: Enoxaparin 40 MG/0.4 ML Syringe SUBCUT SCH (19:49)
[2017-08-18] MEDS: Simvastatin 20 MG Tab PO SCH (21:35)
[2017-08-18] MEDS: Insulin Detemir 100 Units/ML 3 ML Pen SUBCUT SCH (21:56)
[2017-08-19] MEDS: Acetaminophen 325 MG Tab PO PRN ×2 (02:03→20:13)
[2017-08-19] MEDS: Piperacillin/Tazobactam/Dext 3.375 GM in Premix Bag 1 BAG IV SCH ×4 (02:05→20:03)
[2017-08-19] MEDS: Insulin Aspart 100 Units/ML 3 ML Pen SUBCUT SCH ×4 (07:39→21:22)
[2017-08-19] MEDS: Ferrous Sulfate 325 MG Tab PO SCH ×2 (08:52→21:14)
[2017-08-19] MEDS: Aspirin 325 MG Tab.EC PO SCH (08:52)
[2017-08-19] MEDS: Magnesium Oxide 400 MG Tab PO SCH ×2 (08:53→21:17)
[2017-08-19] MEDS: Metoprolol Tartrate 25 MG Tab PO SCH ×2 (08:54→21:16)
[2017-08-19] MEDS: Pregabalin 75 MG Cap PO SCH ×2 (09:01→21:21)
[2017-08-19] MEDS: Mometasone Furoate Nasal Spray 17 GM Canister NAS SCH (09:01)
--- NOTE | 2017-08-19 12:58 | PCM.PN ---
- General Info Date of Service: 08/19/17 Subjective Update: Mr. Butts has had further improvement in his cellulitis with almost total resolution. He did have an episode of hypoglycemia yesterday afternoon but otherwise has been hemodynamically stable and afebrile. Functional Status: Reports: Tolerating Diet, Urinating - Review of Systems General: Reports: Weakness. Denies: Fever, Chills Pulmonary: Reports: No Symptoms Cardiovascular: Reports: No Symptoms Gastrointestinal: Reports: No Symptoms Skin: Reports: Other (cellulitis right lower extremity has almost totally resolved) - Patient Data Vitals - Most Recent: Last Vital Signs Temp 98.6 F 08/19/17 11:00 Pulse 57 L 08/19/17 11:00 Resp 14 08/19/17 11:00 BP 145/71 H 08/19/17 11:00 Pulse Ox 95 08/19/17 11:00 Weight - Most Recent: 249 lb 3.2 oz I&O - Last 24 Hours: Intake & Output 08/18/17 08/19/17 08/19/17 22:59 06:59 14:59 Intake Total 120 50 Balance 120 50 Lab Results Last 24 Hours: Laboratory Results - last 24 hr 08/19/17 Range/Units 05:58 Sodium 143 (140-148) mmol/L Potassium 4.0 (3.6-5.2) mmol/L Chloride 108 (100-108) mmol/L Carbon Dioxide 27 (21-32) mmol/L Anion Gap 8.4 (5.0-14.0) mmol/L BUN 13 (7-18) mg/dL Creatinine 1.3 (0.8-1.3) mg/dL Est Cr Clr Drug Dosing 62.27 mL/min Estimated GFR (MDRD) 55 L (>60) Glucose 152 H (74-106) mg/dL Calcium 8.8 (8.5-10.1) mg/dL Magnesium 2.0 (1.8-2.4) mg/dL Med Orders - Current: Current Medications Acetaminophen (Tylenol) 650 mg PO Q4H PRN PRN Reason: Pain (Mild 1-3)/fever Last Admin: 08/19/17 02:03 Dose: 650 mg Aspirin (Ecotrin) 325 mg PO DAILY [facility] Last Admin: 08/19/17 08:52 Dose: 325 mg Cilostazol (Pletal) 100 mg PO BID [facility] Last Admin: 08/19/17 08:53 Dose: 100 mg Dextrose (Glutose 15) 15 gm PO ONETIME PRN PRN Reason: Hypoglycemia Dextrose/Water (Dextrose 50% In Water) 50 ml IV ONETIME PRN PRN Reason: Hypoglycemia Enoxaparin Sodium (Lovenox) 40 mg SUBCUT Q24H [facility] Last Admin: 08/18/17 19:49 Dose: 40 mg Ferrous Sulfate (Ferrous Sulfate) 325 mg PO BID [facility] Last Admin: 08/19/17 08:52 Dose: 325 mg Vancomycin HCl 1.5 gm/ Sodium (Chloride) 250 mls @ 166.667 mls/hr IV Q12H [facility] Last Admin: 08/19/17 09:23 Dose: 166.667 mls/hr Piperacillin/Tazobactam/ (Dextrose 3.375 gm/ Premix) 50 mls @ 100 mls/hr IV Q6H [facility] Last Admin: 08/19/17 08:41 Dose: 100 mls/hr Insulin Aspart (Novolog) 0 unit SUBCUT QIDACANDBED [facility]; Protocol Last Admin: 08/19/17 12:32 Dose: 4 units Insulin Detemir (Levemir) 12 unit SUBCUT BEDTIME [facility] Last Admin: 08/18/17 21:56 Dose: 12 units Magnesium Hydroxide (Milk Of Magnesia) 30 ml PO Q12H PRN PRN Reason: Constipation Magnesium Oxide (Magnesium Oxide) 400 mg PO BID [facility] Last Admin: 08/19/17 08:53 Dose: 400 mg Metoprolol Tartrate (Lopressor) 12.5 mg PO BID [facility] Last Admin: 08/19/17 08:54 Dose: 12.5 mg Mometasone Furoate (Nasonex [place]) 0 gm LISA DAILY [facility] Last Admin: 08/19/17 09:01 Dose: Not Given Ondansetron HCl (Zofran) 4 mg IV Q4H PRN PRN Reason: Nausea/Vomiting Oxycodone HCl (Oxycodone) 10 mg PO Q4H PRN PRN Reason: Pain (moderate 4-6) Polyethylene Glycol (Miralax) 17 gm PO DAILY PRN PRN Reason: Constipation Pregabalin (Lyrica) 150 mg PO BID [facility] Last Admin: 08/19/17 09:01 Dose: 150 mg Senna/Docusate Sodium (Senna Plus) 1 tab PO BID PRN PRN Reason: Constipation Simvastatin (Zocor) 10 mg PO BEDTIME [facility] Last Admin: 08/18/17 21:35 Dose: 10 mg Sodium Chloride (Saline Flush) 10 ml FLUSH ASDIRECTED PRN PRN Reason: Keep Vein Open Last Admin: 08/18/17 07:43 Dose: 10 ml Valsartan (Diovan) 80 mg PO DAILY [facility] Last Admin: 08/19/17 08:51 Dose: 80 mg Discontinued Medications Enoxaparin Sodium (Lovenox) 40 mg SUBCUT DAILY [facility] Last Admin: 08/15/17 20:38 Dose: 40 mg Lactated Ringer's (Ringers, Lactated) 1,000 mls @ 500 mls/hr IV ASDIRECTED [facility] Stop: 08/15/17 22:01 Last Admin: 08/15/17 19:09 Dose: 500 mls/hr Piperacillin Sod/Tazobactam (Sod 3.375 gm/ Sodium Chloride) 50 mls @ 100 mls/ hr IV Q6H [facility] Last Admin: 08/16/17 00:20 Dose: 100 mls/hr Vancomycin HCl 2,000 mg/ (Dextrose/Water) 500 mls @ 250 mls/hr IV ONETIME ONE Stop: 08/15/17 21:59 Last Admin: 08/15/17 20:42 Dose: Not Given Lactated Ringer's (Ringers, Lactated) 1,000 mls @ 125 mls/hr IV ASDIRECTED [facility] Last Admin: 08/16/17 07:00 Dose: 125 mls/hr Vancomycin HCl 2,000 mg/ (Sodium Chloride) 500 mls @ 250 mls/hr IV ONETIME ONE Stop: 08/15/17 22:59 Last Admin: 08/15/17 20:40 Dose: 250 mls/hr Magnesium Sulfate 2 gm/ Premix 50 mls @ 25 mls/hr IV ONETIME ONE Stop: 08/16/17 10:59 Last Admin: 08/16/17 10:44 Dose: 25 mls/hr Potassium Chloride 20 meq/Lidocaine HCl 2 ml/ Sodium Chloride 112 mls @ 56 mls/ hr IV Q2H [facility] Stop: 08/16/17 13:29 Last Admin: 08/16/17 12:36 Dose: 56 mls/hr Lactated Ringer's (Ringers, Lactated) 1,000 mls @ 75 mls/hr IV ASDIRECTED [facility] Last Admin: 08/16/17 20:58 Dose: 75 mls/hr Magnesium Sulfate 2 gm/ Premix 50 mls @ 25 mls/hr IV ONETIME ONE Stop: 08/17/17 11:59 Last Admin: 08/17/17 09:53 Dose: 25 mls/hr Magnesium Sulfate 2 gm/ Premix 50 mls @ 25 mls/hr IV Q6H [facility] Stop: 08/18/17 16:59 Last Admin: 08/18/17 15:42 Dose: 25 mls/hr Insulin Detemir (Levemir) 12 unit SUBCUT BEDTIME [facility] Last Admin: 08/15/17 21:51 Dose: 12 units Potassium Chloride (Klor-Con M20) 40 meq PO ONETIME ONE Stop: 08/16/17 09:01 Last Admin: 08/16/17 10:43 Dose: 40 meq Vancomycin HCl (Vancomycin) 1 gm IV .PHARMACY TO DOSE [facility] Stop: 08/16/17 08:00 Vancomycin HCl (Vancomycin) Confirm Administered Dose 2,000 mg .ROUTE .STK-MED ONE Stop: 08/15/17 20:25 Last Admin: 08/15/17 20:43 Dose: Not Given - Exam Quality Assessment: DVT Prophylaxis General: Alert, Oriented, Cooperative, No Acute Distress Lungs: Clear to Auscultation, Normal Respiratory Effort Cardiovascular: Regular Rate, Regular Rhythm, No Murmurs GI/Abdominal Exam: Soft, Non-Tender, No Organomegaly, No Distention Extremities: Non-Tender, No Pedal Edema, Other (minimal residual erythema right lower leg, markedly improved) Skin: Warm, Dry - Problem List Review Problem List Initiated/Reviewed/Updated: Yes - My Orders Last 24 Hours: My Active Orders 08/19/17 16:30 GLUCOSE POC LAB TO COLLECT [POC] QIDACANDBED 08/19/17 21:00 GLUCOSE POC LAB TO COLLECT [POC] QIDACANDBED 08/20/17 07:30 GLUCOSE POC LAB TO COLLECT [POC] QIDACANDBED 08/20/17 11:30 GLUCOSE POC LAB TO COLLECT [POC] QIDACANDBED 08/20/17 16:30 GLUCOSE POC LAB TO COLLECT [POC] QIDACANDBED 08/20/17 21:00 GLUCOSE POC LAB TO COLLECT [POC] QIDACANDBED 08/21/17 07:30 GLUCOSE POC LAB TO COLLECT [POC] QIDACANDBED 08/21/17 11:30 GLUCOSE POC LAB TO COLLECT [POC] QIDACANDBED 08/21/17 16:30 GLUCOSE POC LAB TO COLLECT [POC] QIDACANDBED 08/21/17 21:00 GLUCOSE POC LAB TO COLLECT [POC] QIDACANDBED 08/22/17 07:30 GLUCOSE POC LAB TO COLLECT [POC] QIDACANDBED 08/22/17 11:30 GLUCOSE POC LAB TO COLLECT [POC] QIDACANDBED 08/22/17 16:30 GLUCOSE POC LAB TO COLLECT [POC] QIDACANDBED 08/22/17 21:00 GLUCOSE POC LAB TO COLLECT [POC] QIDACANDBED - Plan Plan:: ASSESSMENT AND PLAN CELLULITIS RIGHT LOWER LEG WITH SEPSIS-almost total resolution of cellulitis, we 'll plan additional 24 hours of IV antibiotic therapy, blood cultures remain negative -Blood cultures pending -Saline lock IV -discontinue IV vancomycin -Continue IV Zosyn additional 24 hours TYPE 2 DIABETES MELLITUS -continue usual dose of long-acting insulin -4 times a day glucometers -moderate dose sliding scale NovoLog CHRONIC KIDNEY DISEASE STAGE III-renal function has remained stable thus far -Closely monitor renal function and urine output MAINTENANCE ISSUES -DVT prophylaxis; Lovenox 40 mg subcutaneous daily -GI prophylaxis; not indicated -Lopez catheter; not indicated -Nutrition; consistent carb diet -Nicotine dependence; not required CODE STATUS- FULL CODE ADMISSION STATUS-patient will be admitted to inpatient status, expect at least a 2 night hospital stay for evaluation and management of problems as outlined above. At the time of this admission I do not reasonably expected evaluation and management of this problem will require more than a 96 hour hospital stay. DISPOSITION-anticipate discharge to home after the hospital stay. PRIMARY CARE PROVIDER-Dr. Vickers
[2017-08-19] MEDS: Enoxaparin 40 MG/0.4 ML Syringe SUBCUT SCH (20:09)
[2017-08-19] MEDS: Insulin Detemir 100 Units/ML 3 ML Pen SUBCUT SCH (21:14)
[2017-08-19] MEDS: Simvastatin 20 MG Tab PO SCH (21:17)
[2017-08-20] MEDS: Piperacillin/Tazobactam/Dext 3.375 GM in Premix Bag 1 BAG IV SCH ×2 (02:38→08:06)
[2017-08-20] MEDS: Insulin Aspart 100 Units/ML 3 ML Pen SUBCUT SCH ×2 (07:49→11:59)
[2017-08-20] MEDS: Ferrous Sulfate 325 MG Tab PO SCH (08:09)
[2017-08-20] MEDS: Aspirin 325 MG Tab.EC PO SCH (08:09)
[2017-08-20] MEDS: Mometasone Furoate Nasal Spray 17 GM Canister NAS SCH (08:10)
[2017-08-20] MEDS: Magnesium Oxide 400 MG Tab PO SCH (08:10)
[2017-08-20] MEDS: Metoprolol Tartrate 25 MG Tab PO SCH (08:10)
[2017-08-20] MEDS: Pregabalin 75 MG Cap PO SCH (08:15)
[2017-08-20 12:16] VITALS: BP 143/69
--- NOTE | 2017-08-20 12:28 | PCM.DCSUM1 ---
Discharge Summary - Hospital Course Brief History: Is patient is a 67-year-old gentleman who was admitted through the emergency department with weakness and fever secondary to cellulitis of the right lower extremity and associated sepsis. - Discharge Data Discharge Date: 08/20/17 Discharge Disposition: Home, W Home Health Agency 06 Condition: Fair - Discharge Diagnosis/Problem(s) (1) Sepsis SNOMED Code(s): 81441407 ICD Code: A41.9 - SEPSIS, UNSPECIFIED ORGANISM Status: Acute Current Visit: Yes (2) Cellulitis SNOMED Code(s): 573116471 ICD Code: L03.90 - CELLULITIS, UNSPECIFIED Status: Acute Current Visit: Yes Qualifiers: Site of cellulitis: extremity Site of cellulitis of extremity: lower extremity Laterality: right Qualified Code(s): L03.115 - Cellulitis of right lower limb (3) Type 2 diabetes mellitus SNOMED Code(s): 44549384 ICD Code: E11.9 - TYPE 2 DIABETES MELLITUS WITHOUT COMPLICATIONS Status: Chronic Current Visit: Yes Qualifiers: Diabetes mellitus shelter insulin use: with shelter use Diabetes mellitus complication status: with skin complications Diabetes mellitus complication detail: with other skin complication Qualified Code(s): E11.628 - Type 2 diabetes mellitus with other skin complications; Z79.4 - [employer] ( current) use of insulin (4) Chronic kidney disease (CKD) SNOMED Code(s): 408587614 ICD Code: N18.9 - CHRONIC KIDNEY DISEASE, UNSPECIFIED Status: Chronic Current Visit: No (5) History of left below knee amputation SNOMED Code(s): 715682936, 918221373, 583721354 ICD Code: Z89.512 - ACQUIRED ABSENCE OF LEFT LEG BELOW KNEE Status: Chronic Current Visit: No - Patient Summary/Data Hospital Course: Mr. Butts is a 67-year-old gentleman who is admitted through the emergency department with cellulitis of his right lower leg and associated sepsis. He developed an upper respiratory tract infection 3 days prior to admission and was generally not feeling well because of that. On the day of admission he noted onset of fever with shaking chills and erythema of his right lower leg. 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 He does have underlying type 2 diabetes mellitus and is status post left below the knee amputation. Blood cultures were obtained in the emergency department, white blood cell count was normal. He was admitted to the hospital and given IV fluids per sepsis protocol for management of sepsis as well as IV antibiotic therapy with Zosyn and vancomycin. Blood cultures remained negative throughout the hospital stay and with no evidence of resistant staph aureus the vancomycin was discontinued. Cellulitis gradually improved and by the time of discharge had totally resolved. He does have an open ulcer on the heel of his right foot that is been there for several years. He also has healing wound on his left below the knee amputation stump. Because of his diabetes blood glucose levels were monitored throughout his hospital stay, he was continued on his usual insulin, and was also given sliding scale NovoLog. Follow-up appointment has already been scheduled for the wound clinic at [facility]. Home care will be arranged for him after discharge including home physical therapy and occupational therapy. He is instructed to use a probiotic at least twice daily over the next few weeks and will be on oral antibiotic therapy with Augmentin for the next week. Follow-up appointment will be scheduled with his primary care provider, Dr. Vickers, within one week. Activity will be as tolerated and he will be resuming his usual diabetic diet. - Patient Instructions Diet: Diabetic Diet Activity: As Tolerated Other/Special Instructions: Please instruct patient to use a probiotic at least twice daily. Patient already has follow-up appointment scheduled in the [place] wound clinic. Please schedule follow-up appointment with his primary care provider, within one week. Please arrange for home care follow-up after discharge, including home physical therapy and occupational therapy. - Discharge Plan Prescriptions/Med Rec: Amoxicillin/Potassium Clav [Augmentin 875-125 Tablet] 1 each PO BID #14 tablet Home Medications: Home Meds Aspirin 325 mg PO DAILY 03/16/14 [History] Cilostazol [Pletal] 100 mg PO BID 03/16/14 [History] Insulin Glarg,Human.Rec.Analog [Lantus] 12 units SUBCUT BEDTIME 03/16/14 [ History] Metoprolol Tartrate [Lopressor] 12.5 mg PO BID 03/16/14 [History] Valsartan [Diovan] 80 mg PO DAILY 03/16/14 [History] Simvastatin [Zocor] 10 mg PO BEDTIME 02/20/17 [History] Acetaminophen [Tylenol Extra Strength] 500 mg PO ASDIRECTED PRN 04/13/17 [ History] Amino Ac/Protein Hydr/Whey Pro [Liquacel Liquid Protein] 1 oz PO TID 04/13/17 [ History] Ferrous Sulfate 325 mg PO BID 04/13/17 [History] Insulin Aspart [NovoLOG] 5 unit SUBCUT ASDIRECTED 04/13/17 [History] Polyethylene Glycol 3350 [Miralax] 17 gm PO DAILY PRN 04/13/17 [History] Magnesium Oxide 500 mg PO BID 08/16/17 [History] Pregabalin [Lyrica] 150 mg PO BID 08/16/17 [History] Amoxicillin/Potassium Clav [Augmentin 875-125 Tablet] 1 each PO BID #14 tablet 08/20/17 [Rx] Referrals: Timothy Vickers MD [Primary Care Provider] - - Discharge Summary/Plan Comment DC Time >30 min.: No - Patient Data Vitals - Most Recent: Last Vital Signs Temp 98.6 F 08/20/17 11:00 Pulse 70 08/20/17 11:00 Resp 17 08/20/17 11:00 BP 143/69 H 08/20/17 11:00 Pulse Ox 95 08/20/17 11:00 Weight - Most Recent: 555 lb 9.038 oz I&O - Last 24 hours: Intake & Output 08/19/17 08/20/17 08/20/17 22:59 06:59 14:59 Intake Total 550 50 650 Balance 550 50 650 Med Orders - Current: Current Medications Acetaminophen (Tylenol) 650 mg PO Q4H PRN PRN Reason: Pain (Mild 1-3)/fever Last Admin: 08/19/17 20:13 Dose: 650 mg Aspirin (Ecotrin) 325 mg PO DAILY [facility] Last Admin: 08/20/17 08:09 Dose: 325 mg Cilostazol (Pletal) 100 mg PO BID [facility] Last Admin: 08/20/17 08:11 Dose: 100 mg Dextrose (Glutose 15) 15 gm PO ONETIME PRN PRN Reason: Hypoglycemia Dextrose/Water (Dextrose 50% In Water) 50 ml IV ONETIME PRN PRN Reason: Hypoglycemia Enoxaparin Sodium (Lovenox) 40 mg SUBCUT Q24H [facility] Last Admin: 08/19/17 20:09 Dose: 40 mg Ferrous Sulfate (Ferrous Sulfate) 325 mg PO BID [facility] Last Admin: 08/20/17 08:09 Dose: 325 mg Piperacillin/Tazobactam/ (Dextrose 3.375 gm/ Premix) 50 mls @ 100 mls/hr IV Q6H [facility] Last Admin: 08/20/17 08:06 Dose: 100 mls/hr Insulin Aspart (Novolog) 0 unit SUBCUT QIDACANDBED [facility]; Protocol Last Admin: 08/20/17 11:59 Dose: 4 units Insulin Detemir (Levemir) 12 unit SUBCUT BEDTIME [facility] Last Admin: 08/19/17 21:14 Dose: 12 units Magnesium Hydroxide (Milk Of Magnesia) 30 ml PO Q12H PRN PRN Reason: Constipation Magnesium Oxide (Magnesium Oxide) 400 mg PO BID [facility] Last Admin: 08/20/17 08:10 Dose: 400 mg Metoprolol Tartrate (Lopressor) 12.5 mg PO BID [facility] Last Admin: 08/20/17 08:10 Dose: 12.5 mg Mometasone Furoate (Nasonex [place]) 0 gm LISA DAILY [facility] Last Admin: 08/20/17 08:10 Dose: Not Given Ondansetron HCl (Zofran) 4 mg IV Q4H PRN PRN Reason: Nausea/Vomiting Oxycodone HCl (Oxycodone) 10 mg PO Q4H PRN PRN Reason: Pain (moderate 4-6) Polyethylene Glycol (Miralax) 17 gm PO DAILY PRN PRN Reason: Constipation Pregabalin (Lyrica) 150 mg PO BID [facility] Last Admin: 08/20/17 08:15 Dose: 150 mg Senna/Docusate Sodium (Senna Plus) 1 tab PO BID PRN PRN Reason: Constipation Simvastatin (Zocor) 10 mg PO BEDTIME [facility] Last Admin: 08/19/17 21:17 Dose: 10 mg Sodium Chloride (Saline Flush) 10 ml FLUSH ASDIRECTED PRN PRN Reason: Keep Vein Open Last Admin: 08/18/17 07:43 Dose: 10 ml Valsartan (Diovan) 80 mg PO DAILY [facility] Last Admin: 08/20/17 08:09 Dose: 80 mg Discontinued Medications Enoxaparin Sodium (Lovenox) 40 mg SUBCUT DAILY [facility] Last Admin: 08/15/17 20:38 Dose: 40 mg Lactated Ringer's (Ringers, Lactated) 1,000 mls @ 500 mls/hr IV ASDIRECTED [facility] Stop: 08/15/17 22:01 Last Admin: 08/15/17 19:09 Dose: 500 mls/hr Piperacillin Sod/Tazobactam (Sod 3.375 gm/ Sodium Chloride) 50 mls @ 100 mls/ hr IV Q6H [facility] Last Admin: 08/16/17 00:20 Dose: 100 mls/hr Vancomycin HCl 2,000 mg/ (Dextrose/Water) 500 mls @ 250 mls/hr IV ONETIME ONE Stop: 08/15/17 21:59 Last Admin: 08/15/17 20:42 Dose: Not Given Lactated Ringer's (Ringers, Lactated) 1,000 mls @ 125 mls/hr IV ASDIRECTED [facility] Last Admin: 08/16/17 07:00 Dose: 125 mls/hr Vancomycin HCl 2,000 mg/ (Sodium Chloride) 500 mls @ 250 mls/hr IV ONETIME ONE Stop: 08/15/17 22:59 Last Admin: 08/15/17 20:40 Dose: 250 mls/hr Vancomycin HCl 1.5 gm/ Sodium (Chloride) 250 mls @ 166.667 mls/hr IV Q12H [facility] Last Admin: 08/19/17 09:23 Dose: 166.667 mls/hr Magnesium Sulfate 2 gm/ Premix 50 mls @ 25 mls/hr IV ONETIME ONE Stop: 08/16/17 10:59 Last Admin: 08/16/17 10:44 Dose: 25 mls/hr Potassium Chloride 20 meq/Lidocaine HCl 2 ml/ Sodium Chloride 112 mls @ 56 mls/ hr IV Q2H [facility] Stop: 08/16/17 13:29 Last Admin: 08/16/17 12:36 Dose: 56 mls/hr Lactated Ringer's (Ringers, Lactated) 1,000 mls @ 75 mls/hr IV ASDIRECTED [facility] Last Admin: 08/16/17 20:58 Dose: 75 mls/hr Magnesium Sulfate 2 gm/ Premix 50 mls @ 25 mls/hr IV ONETIME ONE Stop: 08/17/17 11:59 Last Admin: 08/17/17 09:53 Dose: 25 mls/hr Magnesium Sulfate 2 gm/ Premix 50 mls @ 25 mls/hr IV Q6H [facility] Stop: 08/18/17 16:59 Last Admin: 08/18/17 15:42 Dose: 25 mls/hr Insulin Detemir (Levemir) 12 unit SUBCUT BEDTIME [facility] Last Admin: 08/15/17 21:51 Dose: 12 units Potassium Chloride (Klor-Con M20) 40 meq PO ONETIME ONE Stop: 08/16/17 09:01 Last Admin: 08/16/17 10:43 Dose: 40 meq Vancomycin HCl (Vancomycin) 1 gm IV .PHARMACY TO DOSE [facility] Stop: 08/16/17 08:00 Vancomycin HCl (Vancomycin) Confirm Administered Dose 2,000 mg .ROUTE .STK-MED ONE Stop: 08/15/17 20:25 Last Admin: 08/15/17 20:43 Dose: Not Given - Exam Quality Assessment: Reports: DVT Prophylaxis General: Reports: Alert, Oriented, Cooperative, No Acute Distress Lungs: Reports: Clear to Auscultation, Normal Respiratory Effort Cardiovascular: Reports: Regular Rate, Regular Rhythm, No Murmurs GI/Abdominal Exam: Soft, Non-Tender, No Organomegaly, No Distention Skin: Reports: Other (Cellulitis right lower extremity has totally resolved, open ulcer heel right foot)
== END 2017-08-20 13:25 | disposition home health service (06) | DRG 872 ==
LOC: JP.ED 17:11 → JP.ICU 18:58 → JP.MS 08-17 13:30
PROVIDERS: ADMIT Hospitalist; ATTEND Hospitalist
DX: A41.9 Sepsis, unspecified organism (principal); L03.115 Cellulitis of right lower limb; L97.929 Non-pressure chronic ulcer of unspecified part of left lower leg with unspecified severity; L97.419 Non-pressure chronic ulcer of right heel and midfoot with unspecified severity; I12.9 Hypertensive chronic kidney disease with stage 1 through stage 4 chronic kidney disease, or unspecified chronic kidney disease; E11.22 Type 2 diabetes mellitus with diabetic chronic kidney disease; N18.3 Chronic kidney disease, stage 3 (moderate); E11.621 Type 2 diabetes mellitus with foot ulcer; E11.40 Type 2 diabetes mellitus with diabetic neuropathy, unspecified; R50.9 Fever, unspecified; L53.8 Other specified erythematous conditions; E11.628 Type 2 diabetes mellitus with other skin complications; E11.51 Type 2 diabetes mellitus with diabetic peripheral angiopathy without gangrene; E11.622 Type 2 diabetes mellitus with other skin ulcer; Z79.4 Long term (current) use of insulin; Z89.512 Acquired absence of left leg below knee; I25.10 Atherosclerotic heart disease of native coronary artery without angina pectoris; E78.00 Pure hypercholesterolemia, unspecified; I25.2 Old myocardial infarction; Z86.14 Personal history of Methicillin resistant Staphylococcus aureus infection; E53.8 Deficiency of other specified B group vitamins; Z79.82 Long term (current) use of aspirin; Z88.5 Allergy status to narcotic agent; Z88.8 Allergy status to other drugs, medicaments and biological substances; D50.9 Iron deficiency anemia, unspecified
CPT/HCPCS: 36415; 80048; 80053; 80202; 82962; 83605; 83735; 85025; 87040; 99284; A9270-GY; J1650; J2543; J3370; J3475; J3480; J7030; J7040; J7050; J7120

== ENCOUNTER 2017-09-21 23:30 | Inpatient (IN) | payer MEDICAID, MEDICARE ==
[2017-09-21] MEDS ORDERED: Sodium Chloride 0.9% 10 ML Syringe FLUSH PRN (23:58)
--- NOTE | 2017-09-22 00:10 | EDM.PDOC ---
ED HPI GENERAL MEDICAL PROBLEM - General Chief Complaint: Skin Complaint Stated Complaint: RIGHT LEG INFECTION Time Seen by Provider: 09/21/17 23:55 Source of Information: Reports: Patient, Old Records, RN History Limitations: Reports: No Limitations - History of Present Illness INITIAL COMMENTS - FREE TEXT/NARRATIVE: 67 yo male patient of Dr. Ross presents with redness to the R calf he noticed today about 2030h. He noted a fever or 101 F earlier in the evening that resolved after 2 acetaminophen. No cough or dysuria. No GI sx's. Has an ulcer on his R heel followed by the [place]. Has AODM and known peripheral vascular dz. Thinks his BS are running a little high, but hasn't eaten a lot today. Lives alone. Onset: Today Onset Date: 09/21/17 Onset Time: 20:30 (noticed at 2030h. Hadn't looked at leg since mid morning before that. ) Duration: Hour(s):, Getting Worse Location: Reports: Lower Extremity, Right Quality: Reports: Dull Severity: Mild Improves with: Reports: None Worsens with: Reports: Other (time) Context: Reports: Other (Hx of recurrent infections/ AODM/periph vasc dz.) Associated Symptoms: Reports: Fever/Chills Treatments PRINT FINISHER: Reports: Acetaminophen - Related Data Allergies Allergy/AdvReac Type Severity Reaction Status Date / Time thimerosal Allergy Cannot Verified 09/21/17 23:43 Remember morphine AdvReac Nausea and Verified 09/21/17 23:43 Vomiting Home Meds: Home Meds Aspirin 325 mg PO DAILY 03/16/14 [History] Cilostazol [Pletal] 100 mg PO BID 03/16/14 [History] Insulin Glarg,Human.Rec.Analog [Lantus] 12 units SUBCUT BEDTIME 03/16/14 [ History] Metoprolol Tartrate [Lopressor] 12.5 mg PO BID 03/16/14 [History] Valsartan [Diovan] 80 mg PO DAILY 03/16/14 [History] Simvastatin [Zocor] 10 mg PO BEDTIME 02/20/17 [History] Acetaminophen [Tylenol Extra Strength] 500 mg PO ASDIRECTED PRN 04/13/17 [ History] Ferrous Sulfate 325 mg PO BID 04/13/17 [History] Insulin Aspart [NovoLOG] 5 unit SUBCUT ASDIRECTED 04/13/17 [History] Pregabalin [Lyrica] 150 mg PO BID 08/16/17 [History] Past Medical History Cardiovascular History: Reports: CAD, High Cholesterol, Hypertension, [place], PVD, Other (See Below) Other Cardiovascular History: massive edema ankles Genitourinary History: Reports: Other (See Below) Other Genitourinary History: decreased kidney function Musculoskeletal History: Reports: Amputation, Other (See Below) Other Musculoskeletal History: L leg trauma pto accident. ulcers on feet since 1995. April 20 2017 has a wound vac to left stump Neurological History: Reports: Neuropathy, Diabetic Endocrine/Metabolic History: Reports: Diabetes, Type II Hematologic History: Reports: Anemia, B12 Deficiency, Iron Deficiency Dermatologic History: Reports: Decubitus Ulcer, Venous Stasis Dermatitis, Other (See Below) Other Dermatologic History: states decubitus ulcer gone now. - Infectious Disease History Infectious Disease History: Reports: MRSA Other Infectious Disease History: foot ulcer - Past Surgical History HEENT Surgical History: Reports: Adenoidectomy, Tonsillectomy Musculoskeletal Surgical History: Reports: Amputation, Other (See Below) Other Musculoskeletal Surgeries/Procedures:: left foot amputation February 2017 Social & Family History - Family History Family Medical History: Noncontributory - Tobacco Use Smoking Status *Q: Never Smoker - Caffeine Use Caffeine Use: Reports: Soda Other Caffeine Use: diet coke - Recreational Drug Use Recreational Drug Use: No ED ROS GENERAL - Review of Systems Review Of Systems: See Below Constitutional: Reports: Fever, Chills HEENT: Reports: No Symptoms Respiratory: Reports: No Symptoms Cardiovascular: Reports: No Symptoms Endocrine: Reports: No Symptoms GI/Abdominal: Reports: No Symptoms : Reports: No Symptoms Musculoskeletal: Reports: No Symptoms Skin: Reports: Erythema (below R knee) Neurological: Reports: No Symptoms Psychiatric: Reports: No Symptoms ED EXAM, SKIN/RASH Exam: See Below Exam Limited By: No Limitations General Appearance: Alert, WD/WN, No Apparent Distress Eye Exam: Bilateral Eye: Normal Inspection Ears: Normal External Exam, Normal Canal, Hearing Grossly Normal Nose: Normal Inspection, Normal Mucosa, No Blood Throat/Mouth: Normal Inspection, Normal Lips, Normal Oropharynx, Normal Voice, No Airway Compromise Head: Atraumatic, Normocephalic Neck: Normal Inspection, Supple, Non-Tender Respiratory/Chest: No Respiratory Distress, Lungs Clear, Normal Breath Sounds, No Accessory Muscle Use Cardiovascular: Regular Rate, Rhythm, No Edema GI/Abdominal: Normal Bowel Sounds, Soft, Non-Tender, No Distention Back Exam: Normal Inspection. No: CVA Tenderness (R), CVA Tenderness (L) Extremities: Increased Warmth (R leg below the knee, L leg is amputated below the knee.), Redness (R leg below the knee.) Neurological: Alert, Oriented, CN II-XII Intact, Normal Cognition Psychiatric: Normal Affect, Normal Mood Skin: Warm, Dry, Erythema (R leg), Increased Warmth (R leg), Other (R heel ulcer with drainage, foul odor. ) Location, Skin: Lower Extremity, Right Characteristics: Confluent, Erythematous Associated features: Warmth, Inflammation Course - Vital Signs Last Recorded V/S: Last Vital Signs Temp 36.2 C 09/22/17 00:42 Pulse 81 09/22/17 00:42 Resp 14 09/22/17 00:42 BP 87/50 L 09/22/17 00:42 Pulse Ox 97 09/22/17 00:42 - Orders/Labs/Meds Orders: Active Orders 24 hr Category Date Time Status CULTURE BLOOD [BC] Stat Lab 09/22/17 00:10 Ordered CULTURE BLOOD [BC] Stat Lab 09/22/17 00:15 Ordered UA W/MICROSCOPIC [URIN] Stat Lab 09/21/17 23:58 Ordered Lactated Ringers [Ringers, Lactated] 1,000 ml Med 09/22/17 00:57 Ordered IV BOLUS Sodium Chloride 0.9% [Saline Flush] Med 09/21/17 23:58 Active 10 ml FLUSH ASDIRECTED PRN Saline Lock Insert [OM.PC] Routine Oth 09/21/17 23:58 Ordered Medication Orders Sodium Chloride (Saline Flush) 10 ml FLUSH ASDIRECTED PRN PRN Reason: Keep Vein Open Last Admin: 09/22/17 00:17 Dose: 10 ml Labs: Laboratory Tests 09/21/17 09/21/17 Range/Units 00:10 00:10 WBC 16.0 H (4.5-11.0) K/uL RBC 4.29 L (4.30-5.90) M/uL Hgb 12.6 D (12.0-15.0) g/dL Hct 38.3 L (40.0-54.0) % MCV 89 (80-98) fL MCH 29 (27-31) pg MCHC 33 (32-36) % Plt Count 215 (150-400) K/uL Sodium 138 L (140-148) mmol/L Potassium 4.2 (3.6-5.2) mmol/L Chloride 105 (100-108) mmol/L Carbon Dioxide 21 (21-32) mmol/L Anion Gap 16.2 H (5.0-14.0) mmol/L BUN 37 H D (7-18) mg/dL Creatinine 1.7 H (0.8-1.3) mg/dL Est Cr Clr Drug Dosing 47.55 mL/min Estimated GFR (MDRD) 41 L (>60) Glucose 139 H (74-106) mg/dL Calcium 8.8 (8.5-10.1) mg/dL Meds: Medications Generic Name Dose Route Start Last Admin Trade Name Freq PRN Reason Stop Dose Admin Sodium Chloride 10 ml 09/21/17 23:58 09/22/17 00:17 Saline Flush FLUSH 10 ml ASDIRECTED PRN Administration Keep Vein Open Discontinued Medications Generic Name Dose Route Start Last Admin Trade Name Freq PRN Reason Stop Dose Admin Ceftriaxone Sodium 2 gm/ 50 mls @ 100 mls/hr 09/22/17 00:14 09/22/17 00:22 Sodium Chloride IV 09/22/17 00:43 100 mls/hr ONETIME ONE Administration Clindamycin Phosphate 900 mg/ 106 mls @ 200 mls/hr 09/22/17 00:14 09/22/17 00 :54 Sodium Chloride IV 09/22/17 00:45 200 mls/hr ONETIME ONE Administration Departure - Departure Time of Disposition: 01:10 Disposition: Admitted As Inpatient 68 Condition: Fair Clinical Impression: Cellulitis of leg, right Diabetic foot ulcer Qualifiers: Diabetic foot ulcer location: heel Diabetes mellitus type: type 2 Laterality: right Non-pressure ulcer stage: unspecified non-pressure ulcer stage Qualified Code(s): E11.621 - Type 2 diabetes mellitus with foot ulcer; L97.419 - Non- pressure chronic ulcer of right heel and midfoot with unspecified severity - Discharge Information Referrals: Timothy Vickers MD [Primary Care Provider] - Forms: ED Department Discharge - My Orders Last 24 Hours: My Active Orders 09/21/17 23:58 UA W/MICROSCOPIC [URIN] Stat Sodium Chloride 0.9% [Saline Flush] 10 ml FLUSH ASDIRECTED PRN Saline Lock Insert [OM.PC] Routine 09/22/17 00:10 CULTURE BLOOD [BC] Stat 09/22/17 00:15 CULTURE BLOOD [BC] Stat 09/22/17 00:57 Lactated Ringers [Ringers, Lactated] 1,000 ml IV BOLUS - Assessment/Plan Last 24 Hours: My Active Orders 09/21/17 23:58 UA W/MICROSCOPIC [URIN] Stat Sodium Chloride 0.9% [Saline Flush] 10 ml FLUSH ASDIRECTED PRN Saline Lock Insert [OM.PC] Routine 09/22/17 00:10 CULTURE BLOOD [BC] Stat 09/22/17 00:15 CULTURE BLOOD [BC] Stat 09/22/17 00:57 Lactated Ringers [Ringers, Lactated] 1,000 ml IV BOLUS
[2017-09-22] MEDS ORDERED: Clindamycin Phosphate 900 MG in Sodium Chloride 0.9% 100 ML IV ONE (00:14)
[2017-09-22] MEDS ORDERED: cefTRIAXone 2 GM in Sodium Chloride 0.9% 50 ML IV ONE (00:14)
[2017-09-22] MEDS ORDERED: Lactated Ringers 1,000 ML IV ONE (00:57)
[2017-09-22] MEDS ORDERED: Sodium Chloride 0.9% 1,000 ML IV SCH (02:30)
--- NOTE | 2017-09-22 03:21 | PCM.HP ---
H&P History of Present Illness - General Admit Problem/Dx: Admission Diagnosis/Problem Admission Diagnosis/Problem Cellulitis and abscess of lower leg Source of Information: Patient History Limitations: Reports: No Limitations - History of Present Illness Initial Comments - Free Text/Narative: 67 yo male patient of Dr. Ross presents with redness to the R calf he noticed today about 2030h. He noted a fever or 101 F earlier in the evening that resolved after 2 acetaminophen. No cough or dysuria. No GI sx's. Has an ulcer on his R heel followed by the [place] in [place]. Has AODM and known peripheral vascular disease. Thinks his BS are running a little high, but hasn't eaten a lot today. Lives alone. Onset of Symptoms: Reports: Gradual Duration of Symptoms: Reports: Day(s): Location: Reports: Lower Extremity, Right Quality: Reports: Other (fever) Improves with: Reports: None Worsens with: Reports: None Context: Reports: Other (hx of diabetic wounds in right foot and left below knee amputation) Associated Symptoms: Reports: Fever/Chills - Related Data Allergies/Adverse Reactions: Allergies Allergy/AdvReac Type Severity Reaction Status Date / Time thimerosal Allergy Cannot Verified 09/21/17 23:43 Remember morphine AdvReac Nausea and Verified 09/21/17 23:43 Vomiting Home Medications: Home Meds Aspirin 325 mg PO DAILY 03/16/14 [History] Cilostazol [Pletal] 100 mg PO BID 03/16/14 [History] Insulin Glarg,Human.Rec.Analog [Lantus] 12 units SUBCUT BEDTIME 03/16/14 [ History] Metoprolol Tartrate [Lopressor] 12.5 mg PO BID 03/16/14 [History] Valsartan [Diovan] 80 mg PO DAILY 03/16/14 [History] Simvastatin [Zocor] 10 mg PO BEDTIME 02/20/17 [History] Acetaminophen [Tylenol Extra Strength] 500 mg PO ASDIRECTED PRN 04/13/17 [ History] Ferrous Sulfate 325 mg PO BID 04/13/17 [History] Insulin Aspart [NovoLOG] 5 unit SUBCUT ASDIRECTED 04/13/17 [History] Pregabalin [Lyrica] 150 mg PO BID 08/16/17 [History] Past Medical History Cardiovascular History: Reports: CAD, High Cholesterol, Hypertension, [place], PVD, Other (See Below) Other Cardiovascular History: massive edema ankles Genitourinary History: Reports: Other (See Below) Other Genitourinary History: decreased kidney function Musculoskeletal History: Reports: Amputation, Other (See Below) Other Musculoskeletal History: L leg trauma pto accident. ulcers on feet since 1995. April 20 2017 has a wound vac to left stump Neurological History: Reports: Neuropathy, Diabetic Endocrine/Metabolic History: Reports: Diabetes, Type II Hematologic History: Reports: Anemia, B12 Deficiency, Iron Deficiency Dermatologic History: Reports: Decubitus Ulcer, Venous Stasis Dermatitis, Other (See Below) Other Dermatologic History: states decubitus ulcer gone now. - Infectious Disease History Infectious Disease History: Reports: MRSA Other Infectious Disease History: foot ulcer - Past Surgical History HEENT Surgical History: Reports: Adenoidectomy, Tonsillectomy Musculoskeletal Surgical History: Reports: Amputation, Other (See Below) Other Musculoskeletal Surgeries/Procedures:: left foot amputation February 2017 Social & Family History - Family History Family Medical History: Noncontributory - Tobacco Use Smoking Status *Q: Never Smoker - Caffeine Use Caffeine Use: Reports: Soda Other Caffeine Use: diet coke - Recreational Drug Use Recreational Drug Use: No - Living Situation & Occupation Living situation: Reports: Single, Alone Occupation: Disabled (lives in [place], has [facility].) H&P Review of Systems - Review of Systems: Review Of Systems: See Below General: Reports: Fever, Chills, Malaise HEENT: Reports: No Symptoms Pulmonary: Reports: No Symptoms Cardiovascular: Reports: No Symptoms Gastrointestinal: Reports: No Symptoms Genitourinary: Reports: No Symptoms Musculoskeletal: Reports: Leg Pain Skin: Reports: Erythema (right lower leg), Wound (right lower leg/foot ulcer, left below knee amputation.), Lesions Psychiatric: Reports: No Symptoms Neurological: Reports: No Symptoms Hematologic/Lymphatic: Reports: No Symptoms Immunologic: Reports: No Symptoms Exam - Exam Exam: See Below - Vital Signs Vital Signs: Last Vital Signs Temp 36.2 C 09/22/17 00:42 Pulse 67 09/22/17 02:42 Resp 14 09/22/17 00:42 BP 107/55 L 09/22/17 02:42 Pulse Ox 97 09/22/17 00:42 Weight: 108.862 kg - Exam Quality Assessment: Skin Breakdown (chronic wounds) General: Alert, Oriented, Cooperative HEENT: PERRLA, Conjunctiva Clear, EACs Clear, EOMI, Hearing Intact, Mucosa Moist & [place], Nares Patent, Normal Nasal Septum, Posterior Pharynx Clear, Pupils Equal, Pupils Reactive, TMs Clear Neck: Supple, Trachea Midline, 2 Lungs: Clear to Auscultation, Normal Respiratory Effort Cardiovascular: Regular Rate, Regular Rhythm, Normal S1, Normal S2 GI/Abdominal Exam: Normal Bowel Sounds, Soft, Non-Tender, No Distention, No Abnormal Bruit (Male) Exam: Deferred Rectal (Males) Exam: Deferred Back Exam: Normal Inspection, Full Range of Motion Extremities: Pedal Edema (right lower leg with marked edema), Slow Capillary Refill, Limited Range of Motion, Increased Warmth (right lower leg), Redness ( right lower leg) Skin: Wound (right heel, left bka) Neurological: Normal Speech, Normal Tone Neuro Extensive - Mental Status: Alert, Oriented x3, Normal Mood/Affect, Normal Cognition Psychiatric: Alert, Normal Affect, Normal Mood - Patient Data Lab Results Last 24 hrs: Laboratory Results - last 24 hr 09/21/17 09/21/17 09/22/17 Range/Units 00:10 00:10 02:32 WBC 16.0 H (4.5-11.0) K/uL RBC 4.29 L (4.30-5.90) M/uL Hgb 12.6 D (12.0-15.0) g/dL Hct 38.3 L (40.0-54.0) % MCV 89 (80-98) fL MCH 29 (27-31) pg MCHC 33 (32-36) % Plt Count 215 (150-400) K/uL Sodium 138 L (140-148) mmol/L Potassium 4.2 (3.6-5.2) mmol/L Chloride 105 (100-108) mmol/L Carbon Dioxide 21 (21-32) mmol/L Anion Gap 16.2 H (5.0-14.0) mmol/L BUN 37 H D (7-18) mg/dL Creatinine 1.7 H (0.8-1.3) mg/dL Est Cr Clr Drug Dosing 47.55 mL/min Estimated GFR (MDRD) 41 L (>60) Glucose 139 H (74-106) mg/dL Lactic Acid 1.6 (0.4-2.0) mmol/L Calcium 8.8 (8.5-10.1) mg/dL Amylase (25-115) U/L Lipase (73-393) U/L 09/22/17 Range/Units 02:32 WBC (4.5-11.0) K/uL RBC (4.30-5.90) M/uL Hgb (12.0-15.0) g/dL Hct (40.0-54.0) % MCV (80-98) fL MCH (27-31) pg MCHC (32-36) % Plt Count (150-400) K/uL Sodium (140-148) mmol/L Potassium (3.6-5.2) mmol/L Chloride (100-108) mmol/L Carbon Dioxide (21-32) mmol/L Anion Gap (5.0-14.0) mmol/L BUN (7-18) mg/dL Creatinine (0.8-1.3) mg/dL Est Cr Clr Drug Dosing mL/min Estimated GFR (MDRD) (>60) Glucose (74-106) mg/dL Lactic Acid (0.4-2.0) mmol/L Calcium (8.5-10.1) mg/dL Amylase 71 (25-115) U/L Lipase 138 (73-393) U/L Result Diagrams: 09/21/17 00:10 09/21/17 00:10 - Problem List (1) Cellulitis of leg, right SNOMED Code(s): 157280536 ICD Code: L03.115 - CELLULITIS OF RIGHT LOWER LIMB Status: Acute Priority : High Current Visit: Yes (2) Diabetic foot ulcer SNOMED Code(s): 535777193 ICD Code: E11.621 - TYPE 2 DIABETES MELLITUS WITH FOOT ULCER; L97.509 - NON- PRESSURE CHRONIC ULCER OTH PRT UNSP FOOT W UNSP SEVERITY Status: Acute Priority: High Current Visit: Yes Qualifiers: Diabetic foot ulcer location: heel Diabetes mellitus type: type 2 Laterality: right Non-pressure ulcer stage: unspecified non-pressure ulcer stage Qualified Code(s): E11.621 - Type 2 diabetes mellitus with foot ulcer; L97.419 - Non-pressure chronic ulcer of right heel and midfoot with unspecified severity (3) Diabetes mellitus, insulin dependent (IDDM), controlled SNOMED Code(s): 08683790 ICD Code: E11.9 - TYPE 2 DIABETES MELLITUS WITHOUT COMPLICATIONS; 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 Status: Chronic Priority: Medium Current Visit: No (4) Essential hypertension SNOMED Code(s): 25800362 ICD Code: I10 - ESSENTIAL (PRIMARY) HYPERTENSION Status: Chronic Priority : Medium Current Visit: No (5) History of left below knee amputation SNOMED Code(s): 281165621, 912068100, 535624625 ICD Code: Z89.512 - ACQUIRED ABSENCE OF LEFT LEG BELOW KNEE Status: Chronic Priority: Medium Current Visit: No Problem List Initiated/Reviewed/Updated: Yes Orders Last 24hrs: Active Orders 24 hr Category Date Time Status Patient Status Manage Transfer [TRANSFER] Routine ADT 09/22/17 02:55 Active CULTURE BLOOD [BC] Stat Lab 09/22/17 00:10 Ordered CULTURE BLOOD [BC] Stat Lab 09/22/17 00:15 Ordered UA W/MICROSCOPIC [URIN] Stat Lab 09/21/17 23:58 Ordered Sodium Chloride 0.9% [Normal Saline] 1,000 ml Med 09/22/17 02:30 Active IV ASDIRECTED Sodium Chloride 0.9% [Saline Flush] Med 09/21/17 23:58 Active 10 ml FLUSH ASDIRECTED PRN Saline Lock Insert [OM.PC] Routine Oth 09/21/17 23:58 Ordered Resuscitation Status Routine Resus Stat 09/22/17 02:58 Ordered Medication Orders Sodium Chloride (Normal Saline) 1,000 mls @ 999 mls/hr IV ASDIRECTED ALEXIA Last Admin: 09/22/17 02:24 Dose: 999 mls/hr Sodium Chloride (Saline Flush) 10 ml FLUSH ASDIRECTED PRN PRN Reason: Keep Vein Open Last Admin: 09/22/17 00:17 Dose: 10 ml Assessment/Plan Comment:: ASSESSMENT / PLAN:right lower leg Cellulitis, Diabetic foot Ulcer, Diabetes Type 2, insulin dependent 67 [address] male patient of Dr. Ross presents with redness to the R calf he noticed today about 2030h. He noted a fever or 101 F, earlier in the evening that resolved after 2 acetaminophen. No cough or dysuria. No GI sx's. Has an [facility] on [facility] [place] Has AODM and known peripheral vascular disease. Thinks his BS are running a little high, but hasn't eaten a lot today. Lives alone. labs in ER, elevated WBC right lower leg with marked edema, warmth and redness. non painful, patient has neuropathy. will admit to hospital for IV antibiotic, wound care and further management Cellulitis; right lower leg -Admit to [address] [place] [address] for further monitoring -IV Fluids for rehydration NS at 125 mL per hour -IV Antibiotic: Rocephin 2 gram IV every 24 hours -IV Antibiotic: Cleocin 600mg IV every 6 hours -albuterol nebulizer every 4 hours as needed for wheezing and cough -consult to wound care -daily dressing changes -blood cultures x2 pending Diabetes Type 2, Insulin Dependent -POC blood glucose check 4 times daily and hs -Levimir Insulin 12 units subcut at hs -low dose sliding scale insulin Maintenance issues -Orders home meds: -Nutrition: consistent carb diet -Lopez catheter not indicated at this time -DVT: Lovenox 40 units subcut -PPI: IV Protonix 40mg daily -consult OT for discharge planning-declines has [facility] -consult PT for strengthening-declines has [facility] CODE STATUS: FULL CODE Admission status: Admit to [address] [place] [address] Admission justification. This patient will be admitted for inpatient services and is medically appropriate meeting medical necessity for inpatient admission as outlined in my documentation. I reasonably expect the patient will require inpatient services that span. Time over 2 midnights. I reasonably expect this patient to be discharged or transferred within 96 hours after admission to the critical access hospital. Disposition: home Primary care provider: Dr. Vickers Hospitalist: Dr. Rae
[2017-09-22] MEDS ORDERED: oxyCODONE 5 MG Tab PO PRN (03:22)
[2017-09-22] MEDS ORDERED: Docusate Sodium 100 MG Cap PO PRN (03:22)
[2017-09-22] MEDS ORDERED: Ondansetron 4 MG/2 ML SDV IV PRN (03:22)
[2017-09-22] MEDS ORDERED: Morphine 2 MG/ML Syringe IVPUSH PRN (03:22)
[2017-09-22] MEDS ORDERED: Albuterol 0.083% 2.5 MG/3 ML Neb Soln NEB PRN (03:22)
[2017-09-22] MEDS ORDERED: Zolpidem 5 MG Tab PO PRN (03:22)
[2017-09-22] MEDS ORDERED: LORazepam 2 MG/ML SDV IV PRN (03:22)
[2017-09-22] MEDS ORDERED: Ondansetron 4 MG Tab.DIS PO PRN (03:22)
[2017-09-22] MEDS ORDERED: Bisacodyl 5 MG Tab PO PRN (03:22)
[2017-09-22] MEDS: Sodium Chloride 0.9% 1,000 ML IV SCH ×3 (04:00→20:12)
[2017-09-22] MEDS ORDERED: Pantoprazole 40 MG Vial IVPUSH SCH (07:30)
[2017-09-22] MEDS: Insulin Aspart 100 Units/ML 3 ML Pen SUBCUT SCH ×4 (07:53→21:12)
[2017-09-22] MEDS ORDERED: Clindamycin Phosphate 600 MG in Dextrose 5% in Water 50 ML IV SCH ×2 (08:00)
[2017-09-22] MEDS: Ferrous Sulfate 325 MG Tab PO SCH ×2 (10:46→21:14)
[2017-09-22] MEDS: Metoprolol Tartrate 25 MG Tab PO SCH ×2 (10:46→21:15)
[2017-09-22] MEDS: Enoxaparin 40 MG/0.4 ML Syringe SUBCUT SCH (10:47)
[2017-09-22] MEDS: Pantoprazole 40 MG Tab.CR PO SCH (10:48)
[2017-09-22] MEDS: Pregabalin 75 MG Cap PO SCH ×2 (10:52→21:20)
--- NOTE | 2017-09-22 11:50 | US ---
Extremity Non Vascular Rt INDICATION: To eval for abscess of right calf TECHNIQUE: Ultrasound of the right lower leg performed. Color Doppler was used. COMPARISON: None FINDINGS: There is soft tissue edema consistent with clinical history of cellulitis. No evidence of abscess formation IMPRESSION: Cellulitis. No evidence of abscess.
--- NOTE | 2017-09-22 13:39 | CONS ---
DATE OF SERVICE: 09/22/2017 REFERRING PHYSICIAN: CONSULTING PHYSICIAN: Josh Ko MD REASON FOR CONSULTATION: Evaluation of right leg. HISTORY OF PRESENT ILLNESS: This is a pleasant 67-year-old male who was admitted with redness in the calf with elevated fever and pain. This is minimal pain. No vomiting, shortness of breath, or chest pain. PAST MEDICAL HISTORY: Significant including peripheral vascular disease, history of CA, hypertension, hypercholesterolemia, coronary artery disease, history of renal insufficiency, type 2 diabetes, iron deficiency, multiple venous and decubitus ulcers, history of MRSA, tonsillectomy. SOCIAL HISTORY: He lives alone. REVIEW OF SYSTEMS: GENERAL: The patient is appropriate for his condition. HEENT: No symptoms. PULMONARY: No shortness of breath. CARDIOVASCULAR: No current chest pain. GASTROINTESTINAL: No symptoms. MUSCULOSKELETAL: The patient does report very minimal to no leg pain. PSYCHIATRIC: No symptoms. NEUROLOGICAL: No symptoms. HEMATOLOGY: No changes. PHYSICAL EXAMINATION: VITAL SIGNS: Temperature 97.9, blood pressure 123/60, pulse 73, respirations 16, 98% on room air. HEENT: Pupils are equal. NECK: Supple. LUNGS: Clear. CARDIOVASCULAR: Regular rhythm and rate. ABDOMEN: Bowel sounds positive. EXTREMITIES: Left leg shows a good amputation site with good granulation tissue. Right side shows obvious cellulitis with no fluctuance. LABORATORY RESULTS: Show elevated white blood cell count 16,000. Creatinine is now 1.7. IMAGING: I did review, and the lower extremity ultrasound results are pending. ASSESSMENT AND PLAN: Cellulitis. Plan to continue the same IV antibiotics. We will order an ultrasound to evaluate for possible abscess formation. Josh Ko MD /[id number]
[2017-09-22] MEDS: Acetaminophen 325 MG Tab PO PRN ×2 (16:10→20:11)
[2017-09-22] MEDS: Insulin Detemir 100 Units/ML 3 ML Pen SUBCUT SCH (21:11)
[2017-09-22] MEDS: cefTRIAXone 2 GM in Sodium Chloride 0.9% 50 ML IV SCH (21:20)
[2017-09-22] MEDS: Simvastatin 20 MG Tab PO SCH (21:58)
[2017-09-23] MEDS: Sodium Chloride 0.9% 1,000 ML IV SCH (05:42)
[2017-09-23] MEDS: Insulin Aspart 100 Units/ML 3 ML Pen SUBCUT SCH ×4 (08:13→21:25)
[2017-09-23] MEDS: Pantoprazole 40 MG Tab.CR PO SCH (08:13)
[2017-09-23] MEDS: Enoxaparin 40 MG/0.4 ML Syringe SUBCUT SCH (08:15)
[2017-09-23] MEDS: Ferrous Sulfate 325 MG Tab PO SCH ×2 (08:15→21:25)
[2017-09-23] MEDS: Metoprolol Tartrate 25 MG Tab PO SCH ×2 (08:17→21:27)
[2017-09-23] MEDS: Pregabalin 75 MG Cap PO SCH ×2 (08:38→21:33)
[2017-09-23] MEDS ORDERED: Sodium Chloride 0.9% 1,000 ML IV SCH (12:08)
--- NOTE | 2017-09-23 12:10 | PCM.PN ---
- General Info Date of Service: 09/23/17 Functional Status: Reports: Pain Controlled, Tolerating Diet - Review of Systems General: Denies: Fever Cardiovascular: Reports: Edema Musculoskeletal: Denies: Leg Pain Systems Review Comment:: No acute events overnight. No fevers. Swelling and redness both seem a little better today. Vital signs have been stable. No nausea or abdominal pain. - Patient Data Vitals - Most Recent: Last Vital Signs Temp 36.4 C 09/23/17 10:59 Pulse 64 09/23/17 10:59 Resp 18 09/23/17 10:59 BP 129/59 L 09/23/17 10:59 Pulse Ox 97 09/23/17 10:59 Weight - Most Recent: 116.165 kg I&O - Last 24 Hours: Intake & Output 09/22/17 09/23/17 09/23/17 22:59 06:59 14:59 Intake Total 1675 1276 54 Output Total 900 700 Balance 775 576 54 Lab Results Last 24 Hours: Laboratory Results - last 24 hr 09/23/17 09/23/17 Range/Units 09:16 09:16 WBC 11.1 H (4.5-11.0) K/uL RBC 3.60 L (4.30-5.90) M/uL Hgb 10.4 L D (12.0-15.0) g/dL Hct 32.4 L (40.0-54.0) % MCV 90 (80-98) fL MCH 29 (27-31) pg MCHC 32 (32-36) % Plt Count 179 (150-400) K/uL Sodium 141 (140-148) mmol/L Potassium 4.0 (3.6-5.2) mmol/L Chloride 111 H (100-108) mmol/L Carbon Dioxide 19 L (21-32) mmol/L Anion Gap 15.0 H (5.0-14.0) mmol/L BUN 24 H (7-18) mg/dL Creatinine 1.2 (0.8-1.3) mg/dL Est Cr Clr Drug Dosing 67.45 mL/min Estimated GFR (MDRD) > 60 (>60) Glucose 144 H (74-106) mg/dL Calcium 8.5 (8.5-10.1) mg/dL Jose Luis Results Last 24 Hours: Microbiology 09/22/17 00:15 Aerobic Blood Culture - Preliminary Blood - Arm, Left NO GROWTH AFTER 1 DAY Anaerobic Blood Culture - Preliminary NO GROWTH AFTER 1 DAY 09/22/17 00:10 Aerobic Blood Culture - Preliminary Blood - Venous - Iv Start NO GROWTH AFTER 1 DAY Anaerobic Blood Culture - Preliminary NO GROWTH AFTER 1 DAY Med Orders - Current: Current Medications Acetaminophen (Tylenol) 650 mg PO Q4H PRN PRN Reason: Pain (Mild 1-3)/fever Last Admin: 09/22/17 20:11 Dose: 650 mg Albuterol (Proventil Neb Soln) 2.5 mg NEB Q4H PRN PRN Reason: Shortness Of Breath/wheezing Bisacodyl (Dulcolax) 5 mg PO DAILY PRN PRN Reason: Constipation Docusate Sodium (Colace) 100 mg PO BID PRN PRN Reason: Constipation Enoxaparin Sodium (Lovenox) 40 mg SUBCUT DAILY [facility] Last Admin: 09/23/17 08:15 Dose: 40 mg Ferrous Sulfate (Ferrous Sulfate) 325 mg PO BID [facility] Last Admin: 09/23/17 08:15 Dose: 325 mg Ceftriaxone Sodium 2 gm/ (Sodium Chloride) 50 mls @ 100 mls/hr IV Q24H [facility] Last Admin: 09/22/17 21:20 Dose: 100 mls/hr Clindamycin Phosphate 600 mg/ (Sodium Chloride) 54 mls @ 100 mls/hr IV Q6H [facility] Last Admin: 09/23/17 08:13 Dose: 100 mls/hr Sodium Chloride (Normal Saline) 1,000 mls @ 25 mls/hr IV ASDIRECTED [facility] Insulin Aspart (Novolog) 0 unit SUBCUT QIDACANDBED [facility]; Protocol Last Admin: 09/23/17 11:50 Dose: 2 unit Insulin Detemir (Levemir) 12 unit SUBCUT BEDTIME [facility] Last Admin: 09/22/17 21:11 Dose: 12 units Lorazepam (Ativan) 1 mg IV Q6H PRN PRN Reason: Nausea/Vomiting Metoprolol Tartrate (Lopressor) 12.5 mg PO BID [facility] Last Admin: 09/23/17 08:17 Dose: 12.5 mg Morphine Sulfate (Morphine) 2 mg IVPUSH Q2H PRN PRN Reason: Pain (severe 7-10) Ondansetron HCl (Zofran Odt) 4 mg PO Q6H PRN PRN Reason: Nausea able to take PO Ondansetron HCl (Zofran) 4 mg IV Q4H PRN PRN Reason: Nausea/Vomiting Oxycodone HCl (Oxycodone) 5 mg PO Q4H PRN PRN Reason: Pain (moderate 4-6) Pantoprazole Sodium (Protonix) 40 mg PO ACBREAKFAST [facility] Last Admin: 09/23/17 08:13 Dose: 40 mg Pregabalin (Lyrica) 150 mg PO BID [facility] Last Admin: 09/23/17 08:38 Dose: 150 mg Senna/Docusate Sodium (Senna Plus) 1 tab PO BID PRN PRN Reason: Constipation Simvastatin (Zocor) 10 mg PO BEDTIME [facility] Last Admin: 09/22/17 21:58 Dose: 10 mg Sodium Chloride (Saline Flush) 10 ml FLUSH ASDIRECTED PRN PRN Reason: Keep Vein Open Last Admin: 09/22/17 00:17 Dose: 10 ml Valsartan (Diovan) 80 mg PO DAILY [facility] Last Admin: 09/23/17 08:18 Dose: 80 mg Zolpidem Tartrate (Ambien) 5 mg PO BEDTIME PRN PRN Reason: Sleep Discontinued Medications Ceftriaxone Sodium 2 gm/ (Sodium Chloride) 50 mls @ 100 mls/hr IV ONETIME ONE Stop: 09/22/17 00:43 Last Admin: 09/22/17 00:22 Dose: 100 mls/hr Clindamycin Phosphate 900 mg/ (Sodium Chloride) 106 mls @ 200 mls/hr IV ONETIME ONE Stop: 09/22/17 00:45 Last Admin: 09/22/17 00:54 Dose: 200 mls/hr Lactated Ringer's (Ringers, Lactated) 1,000 mls @ 1,000 mls/hr IV BOLUS ONE Stop: 09/22/17 01:56 Last Admin: 09/22/17 01:01 Dose: 1,000 mls/hr Sodium Chloride (Normal Saline) 1,000 mls @ 999 mls/hr IV ASDIRECTED [facility] Last Admin: 09/22/17 02:24 Dose: 999 mls/hr Clindamycin Phosphate 600 mg/ (Dextrose/Water) 54 mls @ 150 mls/hr IV Q6H [facility] Sodium Chloride (Normal Saline) 1,000 mls @ 125 mls/hr IV ASDIRECTED [facility] Last Admin: 09/23/17 05:42 Dose: 125 mls/hr Pantoprazole Sodium (Protonix Iv) 40 mg IVPUSH DAILY@0730 [facility] Last Admin: 09/22/17 11:13 Dose: Not Given - Exam Quality Assessment: No: Supplemental Oxygen General: Alert, Oriented, Cooperative, No Acute Distress Neck: Supple Lungs: Normal Respiratory Effort GI/Abdominal Exam: No Distention Extremities: Pedal Edema (right leg), Increased Warmth (right lower leg from mid guerra distally), Other (left BKA) Psy/Mental Status: Alert, Normal Affect - Problem List Review Problem List Initiated/Reviewed/Updated: Yes - My Orders Last 24 Hours: My Active Orders 09/23/17 12:08 Sodium Chloride 0.9% [Normal Saline] 1,000 ml IV ASDIRECTED 09/23/17 16:30 GLUCOSE POC LAB TO COLLECT [POC] QIDACANDBED 09/23/17 21:00 GLUCOSE POC LAB TO COLLECT [POC] QIDACANDBED 09/24/17 05:00 BASIC METABOLIC PANEL,BMP [CHEM] Timed CBC W/O DIFF,HEMOGRAM [HEME] Timed (1) 09/24/17 07:30 GLUCOSE POC LAB TO COLLECT [POC] QIDACANDBED 09/24/17 11:30 GLUCOSE POC LAB TO COLLECT [POC] QIDACANDBED 09/24/17 16:30 GLUCOSE POC LAB TO COLLECT [POC] QIDACANDBED 09/24/17 21:00 GLUCOSE POC LAB TO COLLECT [POC] QIDACANDBED 09/25/17 07:30 GLUCOSE POC LAB TO COLLECT [POC] QIDACANDBED 09/25/17 11:30 GLUCOSE POC LAB TO COLLECT [POC] QIDACANDBED 09/25/17 16:30 GLUCOSE POC LAB TO COLLECT [POC] QIDACANDBED 09/25/17 21:00 GLUCOSE POC LAB TO COLLECT [POC] QIDACANDBED - Plan Plan:: ASSESSMENT / PLAN: Cellulitis, right lower leg - history of previous infections and patient thinks that infection gets worse shortly after stopping antibiotics. Most recent antibiotics approximately one week prior to admission. no evidence for abscess on ultrasound. MRI pending. Clinically looks a little better today. -IV fluids at to keep open -IV Antibiotic: Rocephin 2 gram IV every 24 hours -IV Antibiotic: Cleocin 600mg IV every 6 hours -consult to wound care -daily dressing changes -Follow-up blood cultures Diabetes Type 2, Insulin Dependent - sugars acceptable at this time. -POC blood glucose check 4 times daily and hs -Levimir Insulin 12 units subcut at hs -low dose sliding scale insulin Maintenance issues - -Nutrition: consistent carb diet -Lopez catheter not indicated at this time -DVT: Lovenox 40 units subcut -PPI: IV Protonix 40mg daily -consult OT for discharge planning-declines has [facility] -consult PT for strengthening-declines has [facility] Disposition - anticipate discharge home after the hospital stay Freddie Rae M.D.
--- NOTE | 2017-09-23 13:34 | PN ---
DATE OF SERVICE: 09/23/2017 SUBJECTIVE: The patient is doing well today. Cellulitis shows some improvement. The patient cannot feel this; therefore, that cannot be used as a test to interpret status. He has no nausea, vomiting, shortness of breath, chest pain. OBJECTIVE: VITAL SIGNS: Stable. He is afebrile. CARDIOVASCULAR: Regular rhythm and rate. RESPIRATORY: Lungs are clear to auscultation bilaterally. EXTREMITIES: Right leg shows improvement of suspected cellulitis. ASSESSMENT AND PLAN: Cellulitis. Continue antibiotics. We will await the results of his white blood cell count this morning and then evaluate further. Josh Ko MD /[id number]
[2017-09-23] MEDS ORDERED: Gadoteridol 279.3 MG/ML 20 ML SDV IV SCH (16:00)
[2017-09-23] MEDS: Simvastatin 20 MG Tab PO SCH (21:25)
[2017-09-23] MEDS: Insulin Detemir 100 Units/ML 3 ML Pen SUBCUT SCH (21:26)
[2017-09-23] MEDS: cefTRIAXone 2 GM in Sodium Chloride 0.9% 50 ML IV SCH (21:33)
[2017-09-24] MEDS: Acetaminophen 325 MG Tab PO PRN (05:27)
[2017-09-24] MEDS: Insulin Aspart 100 Units/ML 3 ML Pen SUBCUT SCH ×4 (07:39→21:20)
[2017-09-24] MEDS: Pantoprazole 40 MG Tab.CR PO SCH (07:39)
[2017-09-24] MEDS: Ferrous Sulfate 325 MG Tab PO SCH ×2 (08:21→21:17)
[2017-09-24] MEDS: Pregabalin 75 MG Cap PO SCH ×2 (08:21→21:30)
[2017-09-24] MEDS: Metoprolol Tartrate 25 MG Tab PO SCH ×2 (08:21→21:23)
[2017-09-24] MEDS: Enoxaparin 40 MG/0.4 ML Syringe SUBCUT SCH (08:21)
--- NOTE | 2017-09-24 17:05 | PCM.PN ---
- General Info Date of Service: 09/24/17 Functional Status: Reports: Pain Controlled, Tolerating Diet - Review of Systems General: Denies: Fever Cardiovascular: Reports: Edema Musculoskeletal: Reports: Leg Pain Systems Review Comment:: There were no acute events overnight. No significant pain in the right leg. No fevers. No new positive culture results. For the most part the erythema inside the marked area is decreasing. His legs have started to weep some and he has a few fluid-filled vesicles on the anterior right lower leg. Blood sugars well- controlled. - Patient Data Vitals - Most Recent: Last Vital Signs Temp 36.1 C 09/24/17 14:54 Pulse 70 09/24/17 14:54 Resp 17 09/24/17 14:54 BP 152/68 H 09/24/17 14:54 Pulse Ox 97 09/24/17 14:54 Weight - Most Recent: 116.165 kg I&O - Last 24 Hours: Intake & Output 09/24/17 09/24/17 09/24/17 06:59 14:59 22:59 Intake Total 305 530 Output Total 900 Balance -595 530 Lab Results Last 24 Hours: Laboratory Results - last 24 hr 09/24/17 09/24/17 Range/Units 05:33 05:33 WBC 8.8 (4.5-11.0) K/uL RBC 3.60 L (4.30-5.90) M/uL Hgb 10.5 L (12.0-15.0) g/dL Hct 32.2 L (40.0-54.0) % MCV 89 (80-98) fL MCH 29 (27-31) pg MCHC 33 (32-36) % Plt Count 190 (150-400) K/uL Sodium 142 (140-148) mmol/L Potassium 4.0 (3.6-5.2) mmol/L Chloride 111 H (100-108) mmol/L Carbon Dioxide 21 (21-32) mmol/L Anion Gap 14.0 (5.0-14.0) mmol/L BUN 18 (7-18) mg/dL Creatinine 1.1 (0.8-1.3) mg/dL Est Cr Clr Drug Dosing 73.59 mL/min Estimated GFR (MDRD) > 60 (>60) Glucose 117 H (74-106) mg/dL Calcium 8.7 (8.5-10.1) mg/dL Jose Luis Results Last 24 Hours: Microbiology 09/22/17 00:15 Aerobic Blood Culture - Preliminary Blood - Arm, Left NO GROWTH AFTER 2 DAYS Anaerobic Blood Culture - Preliminary NO GROWTH AFTER 2 DAYS 09/22/17 00:10 Aerobic Blood Culture - Preliminary Blood - Venous - Iv Start NO GROWTH AFTER 2 DAYS Anaerobic Blood Culture - Preliminary NO GROWTH AFTER 2 DAYS Med Orders - Current: Current Medications Acetaminophen (Tylenol) 650 mg PO Q4H PRN PRN Reason: Pain (Mild 1-3)/fever Last Admin: 09/24/17 05:27 Dose: 650 mg Albuterol (Proventil Neb Soln) 2.5 mg NEB Q4H PRN PRN Reason: Shortness Of Breath/wheezing Bisacodyl (Dulcolax) 5 mg PO DAILY PRN PRN Reason: Constipation Docusate Sodium (Colace) 100 mg PO BID PRN PRN Reason: Constipation Enoxaparin Sodium (Lovenox) 40 mg SUBCUT DAILY [facility] Last Admin: 09/24/17 08:21 Dose: 40 mg Ferrous Sulfate (Ferrous Sulfate) 325 mg PO BID [facility] Last Admin: 09/24/17 08:21 Dose: 325 mg Ceftriaxone Sodium 2 gm/ (Sodium Chloride) 50 mls @ 100 mls/hr IV Q24H [facility] Last Admin: 09/23/17 21:33 Dose: 100 mls/hr Clindamycin Phosphate 600 mg/ (Sodium Chloride) 54 mls @ 100 mls/hr IV Q6H [facility] Last Admin: 09/24/17 14:05 Dose: 100 mls/hr Insulin Aspart (Novolog) 0 unit SUBCUT QIDACANDBED [facility]; Protocol Last Admin: 09/24/17 11:36 Dose: 1 unit Insulin Detemir (Levemir) 12 unit SUBCUT BEDTIME [facility] Last Admin: 09/23/17 21:26 Dose: 12 units Lorazepam (Ativan) 1 mg IV Q6H PRN PRN Reason: Nausea/Vomiting Metoprolol Tartrate (Lopressor) 12.5 mg PO BID [facility] Last Admin: 09/24/17 08:21 Dose: 12.5 mg Morphine Sulfate (Morphine) 2 mg IVPUSH Q2H PRN PRN Reason: Pain (severe 7-10) Ondansetron HCl (Zofran Odt) 4 mg PO Q6H PRN PRN Reason: Nausea able to take PO Ondansetron HCl (Zofran) 4 mg IV Q4H PRN PRN Reason: Nausea/Vomiting Oxycodone HCl (Oxycodone) 5 mg PO Q4H PRN PRN Reason: Pain (moderate 4-6) Pantoprazole Sodium (Protonix) 40 mg PO ACBREAKFAST [facility] Last Admin: 09/24/17 07:39 Dose: 40 mg Pregabalin (Lyrica) 150 mg PO BID [facility] Last Admin: 09/24/17 08:21 Dose: 150 mg Senna/Docusate Sodium (Senna Plus) 1 tab PO BID PRN PRN Reason: Constipation Simvastatin (Zocor) 10 mg PO BEDTIME [facility] Last Admin: 09/23/17 21:25 Dose: 10 mg Sodium Chloride (Saline Flush) 10 ml FLUSH ASDIRECTED PRN PRN Reason: Keep Vein Open Last Admin: 09/22/17 00:17 Dose: 10 ml Valsartan (Diovan) 80 mg PO DAILY [facility] Last Admin: 09/24/17 08:20 Dose: 80 mg Zolpidem Tartrate (Ambien) 5 mg PO BEDTIME PRN PRN Reason: Sleep Discontinued Medications Gadoteridol (Prohance) 20 ml IV . DIRECTED [facility] Stop: 09/23/17 20:00 Last Admin: 09/23/17 16:33 Dose: 20 ml Ceftriaxone Sodium 2 gm/ (Sodium Chloride) 50 mls @ 100 mls/hr IV ONETIME ONE Stop: 09/22/17 00:43 Last Admin: 09/22/17 00:22 Dose: 100 mls/hr Clindamycin Phosphate 900 mg/ (Sodium Chloride) 106 mls @ 200 mls/hr IV ONETIME ONE Stop: 09/22/17 00:45 Last Admin: 09/22/17 00:54 Dose: 200 mls/hr Lactated Ringer's (Ringers, Lactated) 1,000 mls @ 1,000 mls/hr IV BOLUS ONE Stop: 09/22/17 01:56 Last Admin: 09/22/17 01:01 Dose: 1,000 mls/hr Sodium Chloride (Normal Saline) 1,000 mls @ 999 mls/hr IV ASDIRECTED [facility] Last Admin: 09/22/17 02:24 Dose: 999 mls/hr Clindamycin Phosphate 600 mg/ (Dextrose/Water) 54 mls @ 150 mls/hr IV Q6H [facility] Sodium Chloride (Normal Saline) 1,000 mls @ 125 mls/hr IV ASDIRECTED [facility] Last Admin: 09/23/17 05:42 Dose: 125 mls/hr Sodium Chloride (Normal Saline) 1,000 mls @ 25 mls/hr IV ASDIRECTED [facility] Last Admin: 09/23/17 16:57 Dose: 25 mls/hr Pantoprazole Sodium (Protonix Iv) 40 mg IVPUSH DAILY@0730 [facility] Last Admin: 09/22/17 11:13 Dose: Not Given - Exam Quality Assessment: Supplemental Oxygen General: Alert, Oriented, Cooperative, No Acute Distress Lungs: Normal Respiratory Effort Cardiovascular: Regular Rate, Regular Rhythm GI/Abdominal Exam: Soft, No Distention Extremities: Other (Left [id number] amputation. Chronic surgical wound on the left leg is slowly healing with no evidence for erythema or infection. Right leg has a large area of erythema which is within the marked boundaries and improving. He has multiple denuded fluid-filled vesicles anterior lateral and posterior on his right lower leg. There is clear drainage) Skin: Warm, Dry Psy/Mental Status: Alert, Normal Affect - Problem List Review Problem List Initiated/Reviewed/Updated: Yes - My Orders Last 24 Hours: My Active Orders 09/24/17 10:32 Convert IV to Saline Lock [OM.PC] Routine 09/24/17 21:00 GLUCOSE POC LAB TO COLLECT [POC] QIDACANDBED 09/25/17 07:30 GLUCOSE POC LAB TO COLLECT [POC] QIDACANDBED 09/25/17 11:30 GLUCOSE POC LAB TO COLLECT [POC] QIDACANDBED 09/25/17 16:30 GLUCOSE POC LAB TO COLLECT [POC] QIDACANDBED 09/25/17 21:00 GLUCOSE POC LAB TO COLLECT [POC] QIDACANDBED - Plan Plan:: ASSESSMENT / PLAN: Cellulitis, right lower leg - history of previous infections and patient thinks that infection gets worse shortly after stopping antibiotics. Getting better with current antibiotics. Cultures pending at this point. -IV fluids at to keep open -IV Antibiotic: Rocephin 2 gram IV every 24 hours -IV Antibiotic: Cleocin 600mg IV every 6 hours -Anticipate transition to oral antibiotics tomorrow -daily dressing changes -Follow-up blood cultures Diabetes Type 2, Insulin Dependent - sugars well-controlled. -POC blood glucose check 4 times daily and hs -Levimir Insulin 12 units subcut at hs -low dose sliding scale insulin Maintenance issues - -Nutrition: consistent carb diet -Lopez catheter not indicated at this time -DVT: Lovenox 40 units subcut -PPI: IV Protonix 40mg daily -consult OT for discharge planning-declines has [facility] -consult PT for strengthening-declines has [facility] Disposition - anticipate discharge home after the hospital stay, possibly tomorrow if stable overnight Freddie Rae M.D.
[2017-09-24] MEDS: Simvastatin 20 MG Tab PO SCH (21:17)
[2017-09-24] MEDS: cefTRIAXone 2 GM in Sodium Chloride 0.9% 50 ML IV SCH (21:18)
[2017-09-24] MEDS: Insulin Detemir 100 Units/ML 3 ML Pen SUBCUT SCH (21:23)
[2017-09-25 07:17] VITALS: BP 147/71
[2017-09-25] MEDS: Pantoprazole 40 MG Tab.CR PO SCH (07:30)
[2017-09-25] MEDS: Insulin Aspart 100 Units/ML 3 ML Pen SUBCUT SCH ×2 (07:31→12:13)
[2017-09-25] MEDS: Pregabalin 75 MG Cap PO SCH (08:34)
[2017-09-25] MEDS: Metoprolol Tartrate 25 MG Tab PO SCH (08:35)
[2017-09-25] MEDS: Ferrous Sulfate 325 MG Tab PO SCH (08:36)
[2017-09-25] MEDS: Enoxaparin 40 MG/0.4 ML Syringe SUBCUT SCH (08:37)
--- NOTE | 2017-09-25 11:24 | PCM.DCSUM1 ---
Discharge Summary - Hospital Course Brief History: 67-year-old male with history of insulin-dependent diabetes mellitus, peripheral vascular disease and left nuzbf-yop-xuvd amputation who presented with fever and increasing redness, pain and swelling in his right leg. He was admitted for management of right lower extremity cellulitis. - Discharge Data Discharge Date: 09/25/17 Discharge Disposition: Home, Self-Care 01 Condition: Good - Discharge Diagnosis/Problem(s) (1) Cellulitis of leg, right SNOMED Code(s): 503837942 ICD Code: L03.115 - CELLULITIS OF RIGHT LOWER LIMB Status: Acute Priority : High (2) Diabetic foot ulcer SNOMED Code(s): 260194676 ICD Code: E11.621 - TYPE 2 DIABETES MELLITUS WITH FOOT ULCER; L97.509 - NON- PRESSURE CHRONIC ULCER OTH PRT UNSP FOOT W UNSP SEVERITY Status: Chronic Priority: High Qualifiers: Diabetic foot ulcer location: heel Diabetes mellitus type: type 2 Laterality: right Non-pressure ulcer stage: unspecified non-pressure ulcer stage Qualified Code(s): E11.621 - Type 2 diabetes mellitus with foot ulcer; L97.419 - Non-pressure chronic ulcer of right heel and midfoot with unspecified severity (3) Diabetes mellitus, insulin dependent (IDDM), controlled SNOMED Code(s): 10087714 ICD Code: E11.9 - TYPE 2 DIABETES MELLITUS WITHOUT COMPLICATIONS; Z79.4 - RESIDENTIAL (CURRENT) USE OF INSULIN Status: Chronic Priority: Medium (4) Peripheral vascular disease in diabetes mellitus SNOMED Code(s): 52033036, 643127948, 06403061126000 ICD Code: E11.51 - TYPE 2 DIABETES W DIABETIC PERIPHERAL ANGIOPATH W/O GANGRENE Status: Chronic (5) History of left below knee amputation SNOMED Code(s): 439890989, 270662176, 214376263 ICD Code: Z89.512 - ACQUIRED ABSENCE OF LEFT LEG BELOW KNEE Status: Chronic Priority: Medium - Patient Summary/Data Consults: Consultations 09/22/17 03:22 Consult to Physician [CONS] Routine Consulting Provider: Josh Ko Call Completed to Consulting Physician: No Reason for Consult: wound care consult Wound [place]ute Man Consult [Consult to Wound Care Services] [CONS] Routine Comment: Physician Instructions: Hospital Course: Mac presented to the emergency room with fever, chills and redness, swelling and warmth of the right lower extremity. Workup in the emergency room was concerning for cellulitis. He was started on ceftriaxone and clindamycin and admitted for further management. He was seen by Dr. Ko who had been following him for wound care management as an outpatient. Ultrasound of the right lower leg was completed to rule out abscess and there was no evidence for abscess. We did get an MRI of the foot and ankle and this did not show evidence for osteomyelitis. Over the next couple of days he had improvement in the redness, warmth and swelling with antibiotic therapy. Cultures were negative throughout the course of the hospital stay. He showed slow but steady improvement in his cellulitis throughout the course of the hospital stay. His blood sugars have been well-controlled. He is getting around well despite his left lower leg amputation. I believe he is safe for outpatient management at this time. He will require 7 additional days of antibiotic therapy with a combination of clindamycin and cefdinir. He will resume his previous home care orders for wound care. He would benefit from early follow-up and has wound care follow-up in 3 days time.his cultures were all negative. - Patient Instructions Diet: Diabetic Diet Activity: As Tolerated Showering/Bathing: May Shower Notify Provider of: Fever, Increased Pain, Swelling and Redness, Drainage, Nausea and/or Vomiting Other/Special Instructions: 1. You were in the hospital for management of cellulitis of the right lower extremity. This has been improving with antibiotic therapy but you will need additional treatment as outlined below. -- Clindamycin 300 mg capsule, take 2 capsules (600 mg) 3 times a day. Your next dose is due at 2 PM today. --Cefdinir 300 mg capsule, take 1 capsule twice daily. Your next dose is due tonight at 9 pm. 2. Continue your usual home medications as previously prescribed. 3. Follow up as scheduled on Tuesday with the wound care clinic. 4. Seek medical attention if you develop fever greater than 101, or if you have worsening redness, warmth, pain or swelling in your right leg. - Discharge Plan Prescriptions/Med Rec: Cefdinir 300 mg PO BID #15 capsule Clindamycin HCl 300 mg PO TID #46 capsule Home Medications: Home Meds Aspirin 325 mg PO DAILY 03/16/14 [History] Cilostazol [Pletal] 100 mg PO BID 03/16/14 [History] Insulin Glarg,Human.Rec.Analog [Lantus] 12 units SUBCUT BEDTIME 03/16/14 [ History] Metoprolol Tartrate [Lopressor] 12.5 mg PO BID 03/16/14 [History] Valsartan [Diovan] 80 mg PO DAILY 03/16/14 [History] Simvastatin [Zocor] 10 mg PO BEDTIME 02/20/17 [History] Acetaminophen [Tylenol Extra Strength] 500 mg PO ASDIRECTED PRN 04/13/17 [ History] Ferrous Sulfate 325 mg PO BID 04/13/17 [History] Insulin Aspart [NovoLOG] 5 unit SUBCUT ASDIRECTED 04/13/17 [History] Pregabalin [Lyrica] 150 mg PO BID 08/16/17 [History] Cefdinir 300 mg PO BID #15 capsule 09/25/17 [Rx] Clindamycin HCl 300 mg PO TID #46 capsule 09/25/17 [Rx] Patient Handouts: Cellulitis, Adult, Cefdinir capsules, Clindamycin capsules Referrals: Timothy Vickers MD [Primary Care Provider] - (follow up as neede after the hospital stay) - Discharge Summary/Plan Comment DC Time >30 min.: No (25) - Patient Data Vitals - Most Recent: Last Vital Signs Temp 36.8 C 09/25/17 07:00 Pulse 64 09/25/17 08:35 Resp 16 09/25/17 07:00 BP 147/71 H 09/25/17 08:36 Pulse Ox 95 09/25/17 07:00 Weight - Most Recent: 116.165 kg I&O - Last 24 hours: Intake & Output 09/24/17 09/25/17 09/25/17 22:59 06:59 14:59 Intake Total 756 54 410 Output Total 1150 Balance -394 54 410 DAIANA Results - Last 24 hrs: Microbiology 09/22/17 00:15 Aerobic Blood Culture - Preliminary Blood - Arm, Left NO GROWTH AFTER 3 DAYS Anaerobic Blood Culture - Preliminary NO GROWTH AFTER 3 DAYS 09/22/17 00:10 Aerobic Blood Culture - Preliminary Blood - Venous - Iv Start NO GROWTH AFTER 3 DAYS Anaerobic Blood Culture - Preliminary NO GROWTH AFTER 3 DAYS Med Orders - Current: Current Medications Acetaminophen (Tylenol) 650 mg PO Q4H PRN PRN Reason: Pain (Mild 1-3)/fever Last Admin: 09/24/17 05:27 Dose: 650 mg Albuterol (Proventil Neb Soln) 2.5 mg NEB Q4H PRN PRN Reason: Shortness Of Breath/wheezing Bisacodyl (Dulcolax) 5 mg PO DAILY PRN PRN Reason: Constipation Docusate Sodium (Colace) 100 mg PO BID PRN PRN Reason: Constipation Enoxaparin Sodium (Lovenox) 40 mg SUBCUT DAILY [facility] Last Admin: 09/25/17 08:37 Dose: 40 mg Ferrous Sulfate (Ferrous Sulfate) 325 mg PO BID [facility] Last Admin: 09/25/17 08:36 Dose: 325 mg Ceftriaxone Sodium 2 gm/ (Sodium Chloride) 50 mls @ 100 mls/hr IV Q24H [facility] Last Admin: 09/24/17 21:18 Dose: 100 mls/hr Clindamycin Phosphate 600 mg/ (Sodium Chloride) 54 mls @ 100 mls/hr IV Q6H [facility] Last Admin: 09/25/17 08:34 Dose: 100 mls/hr Insulin Aspart (Novolog) 0 unit SUBCUT QIDACANDBED [facility]; Protocol Last Admin: 09/25/17 07:31 Dose: 1 unit Insulin Detemir (Levemir) 12 unit SUBCUT BEDTIME [facility] Last Admin: 09/24/17 21:23 Dose: 12 units Lorazepam (Ativan) 1 mg IV Q6H PRN PRN Reason: Nausea/Vomiting Metoprolol Tartrate (Lopressor) 12.5 mg PO BID [facility] Last Admin: 09/25/17 08:35 Dose: 12.5 mg Morphine Sulfate (Morphine) 2 mg IVPUSH Q2H PRN PRN Reason: Pain (severe 7-10) Ondansetron HCl (Zofran Odt) 4 mg PO Q6H PRN PRN Reason: Nausea able to take PO Ondansetron HCl (Zofran) 4 mg IV Q4H PRN PRN Reason: Nausea/Vomiting Oxycodone HCl (Oxycodone) 5 mg PO Q4H PRN PRN Reason: Pain (moderate 4-6) Pantoprazole Sodium (Protonix) 40 mg PO ACBREAKFAST [facility] Last Admin: 09/25/17 07:30 Dose: 40 mg Pregabalin (Lyrica) 150 mg PO BID [facility] Last Admin: 09/25/17 08:34 Dose: 150 mg Senna/Docusate Sodium (Senna Plus) 1 tab PO BID PRN PRN Reason: Constipation Simvastatin (Zocor) 10 mg PO BEDTIME [facility] Last Admin: 09/24/17 21:17 Dose: 10 mg Sodium Chloride (Saline Flush) 10 ml FLUSH ASDIRECTED PRN PRN Reason: Keep Vein Open Last Admin: 09/22/17 00:17 Dose: 10 ml Valsartan (Diovan) 80 mg PO DAILY [facility] Last Admin: 09/25/17 08:36 Dose: 80 mg Zolpidem Tartrate (Ambien) 5 mg PO BEDTIME PRN PRN Reason: Sleep Discontinued Medications Gadoteridol (Prohance) 20 ml IV . DIRECTED [facility] Stop: 09/23/17 20:00 Last Admin: 09/23/17 16:33 Dose: 20 ml Ceftriaxone Sodium 2 gm/ (Sodium Chloride) 50 mls @ 100 mls/hr IV ONETIME ONE Stop: 09/22/17 00:43 Last Admin: 09/22/17 00:22 Dose: 100 mls/hr Clindamycin Phosphate 900 mg/ (Sodium Chloride) 106 mls @ 200 mls/hr IV ONETIME ONE Stop: 09/22/17 00:45 Last Admin: 09/22/17 00:54 Dose: 200 mls/hr Lactated Ringer's (Ringers, Lactated) 1,000 mls @ 1,000 mls/hr IV BOLUS ONE Stop: 09/22/17 01:56 Last Admin: 09/22/17 01:01 Dose: 1,000 mls/hr Sodium Chloride (Normal Saline) 1,000 mls @ 999 mls/hr IV ASDIRECTED [facility] Last Admin: 09/22/17 02:24 Dose: 999 mls/hr Clindamycin Phosphate 600 mg/ (Dextrose/Water) 54 mls @ 150 mls/hr IV Q6H ALEXIA Sodium Chloride (Normal Saline) 1,000 mls @ 125 mls/hr IV ASDIRECTED [facility] Last Admin: 09/23/17 05:42 Dose: 125 mls/hr Sodium Chloride (Normal Saline) 1,000 mls @ 25 mls/hr IV ASDIRECTED [facility] Last Admin: 09/23/17 16:57 Dose: 25 mls/hr Pantoprazole Sodium (Protonix Iv) 40 mg IVPUSH DAILY@0730 [facility] Last Admin: 09/22/17 11:13 Dose: Not Given - Exam Quality Assessment: Denies: Supplemental Oxygen General: Reports: Alert, Oriented, Cooperative, No Acute Distress Lungs: Reports: Normal Respiratory Effort GI/Abdominal Exam: Soft, No Distention Extremities: Pedal Edema (right lower leg and ankle), Other (left below-the- knee amputation.) Wound/Incisions: Reports: Dressing Dry and Intact, Erythema Improving Psy/Mental Status: Reports: Alert, Normal Affect
== END 2017-09-25 12:44 | disposition home or self-care (01) | DRG 603 ==
LOC: JP.ED 23:30 → JP.MS 09-22 02:55
PROVIDERS: ADMIT Internal Medicine; ATTEND Internal Medicine
DX: L03.115 Cellulitis of right lower limb (principal); L97.419 Non-pressure chronic ulcer of right heel and midfoot with unspecified severity; E11.621 Type 2 diabetes mellitus with foot ulcer; E11.51 Type 2 diabetes mellitus with diabetic peripheral angiopathy without gangrene; I10 Essential (primary) hypertension; Z79.4 Long term (current) use of insulin; R50.9 Fever, unspecified; R60.0 Localized edema; M79.604 Pain in right leg; I25.10 Atherosclerotic heart disease of native coronary artery without angina pectoris; I25.2 Old myocardial infarction; E78.00 Pure hypercholesterolemia, unspecified; Z86.14 Personal history of Methicillin resistant Staphylococcus aureus infection; Z89.512 Acquired absence of left leg below knee; Z88.5 Allergy status to narcotic agent; Z88.8 Allergy status to other drugs, medicaments and biological substances; Z79.82 Long term (current) use of aspirin
CPT/HCPCS: 36415; 82150; 83605; 83690; 87040 ×2; 96361; 96365; 96367; 99285; J0696; J7030; J7040; J7050 ×2; J7120; 73723-RT; 76881-26-RT; 76881-RT; 80048; 81001; 82962; 85027; 86140; 99284; A9270-GY; A9576; J1650; S0077

== ENCOUNTER 2018-11-21 08:07 | Day surgery (SDC) | payer OTHER ==
[~2018-11-21 08:07] MED LIST: Bacitracin Oint 28.35 GM Tube ONE; Dexamethasone 4 MG/ML SDV ONE; Glycopyrrolate 0.2 MG/ML 5 ML MDV ONE; Lidocaine 1% with EPINEPHrine 1:100,000 50 ML MDV ONE; Lidocaine/Prilocaine 2.5-2.5% Crm 5 GM Tube ONE; Mineral Oil 10 ML Bottle ONE; Neostigmine Methylsulfate 1 MG/ML 5 ML Syringe ONE; Ondansetron 4 MG/2 ML SDV ONE; Propofol 200 MG/20 ML SDV ONE; Rocuronium 50 MG/5 ML Vial ONE; Succinylcholine 200 MG/10 ML MDV ONE; fentaNYL 250 MCG/5 ML SDV ONE
[2018-11-21] MEDS ORDERED: Sodium Chloride 0.9% 1,000 ML IV SCH (08:45)
[2018-11-21] MEDS ORDERED: ceFAZolin 2 GM in Premix Bag 1 BAG IV ONE (09:15)
[2018-11-21] MEDS ORDERED: Zolpidem 5 MG Tab PO PRN (11:22)
[2018-11-21] MEDS ORDERED: hydrOXYzine HCl 100 MG/2 ML SDV IM PRN (11:22)
[2018-11-21] MEDS ORDERED: Promethazine 25 MG/ML SDV IM PRN (11:22)
[2018-11-21] MEDS ORDERED: Acetaminophen/HYDROcodone 325-10 MG Tab PO PRN (11:22)
[2018-11-21] MEDS ORDERED: diphenhydrAMINE 50 MG/ML SDV IVPUSH PRN (11:22)
[2018-11-21] MEDS ORDERED: Docusate Sodium 100 MG Cap PO PRN (11:22)
[2018-11-21] MEDS ORDERED: Benzocaine/Cetylpyridinium/Menthol Lozenge MUCMEM PRN (11:22)
[2018-11-21] MEDS ORDERED: fentaNYL 100 MCG/2 ML SDV IVPUSH PRN (11:24)
[2018-11-21 15:25] VITALS: BP 152/82; PULSE 57
--- NOTE | 2018-11-21 16:55 | OR ---
DATE OF PROCEDURE: 11/21/2018 PROCEDURE PERFORMED: 1. Surgical preparation of recipient's skin graft site by excision of scar, total size 136 cm2 (86616 and 62230). 2. Split-thickness skin graft, left leg BKA stump location (43519 and 42678). 3. Debridement, right heel, full thickness, 3.8 x 2.2 cm (65541). INDICATIONS: A 68-year-old male requiring split-thickness skin graft of a failed BKA site from another facility. RISKS: Risks, benefits, alternatives, and limitations including, but not limited to, infection, bleeding, and requirement for reoperation along with graft failure, chronic wounds, scar formation, risks of anesthesia were explained to the patient and wished to proceed. PROCEDURE IN DETAIL: The patient was placed in supine position. The left leg stump eschar and scar were removed using a dermatome set at approximately 8000. This was then debrided down to mild petechiae bleeding. This would be thoroughly irrigated. The donor site would be the left side. This was harvested two rounds set at 12,000. This was in standard technique using mineral oil applied in the machine power contacting the skin, removing from the skin, and then completing the power cycle. Once both pieces of the skin were harvested, they were meshed in a 1.5 to 1 fashion. Careful attention was made to keep the orientation of the skin. This was then placed into the donor recipient site and stapled in place along with interrupted dissolving chromic sutures. Dressings included bacitracin, Adaptic, ABDs, Kerlix were applied. At the donor sites, minimal bleeding had been controlled with lidocaine with epinephrine, DuoDerm along with Mepilex Border Lite dressings and other tertiary dressings were applied. The total area of grafting was 136 cm2 set at approximately 12,000 with a donor site of the left side x2. The patient tolerated the procedure well. Josh Ko MD /[id number]
== END 2018-11-21 16:03 | disposition home or self-care (01) ==
LOC: JP.SDS 08:07 → JP.MS 11:22 → JP.SDS 16:03
PROVIDERS: ATTEND Surgery
DX: T87.89 Other complications of amputation stump (principal); I12.9 Hypertensive chronic kidney disease with stage 1 through stage 4 chronic kidney disease, or unspecified chronic kidney disease; N18.3 Chronic kidney disease, stage 3 (moderate); E11.22 Type 2 diabetes mellitus with diabetic chronic kidney disease; E11.42 Type 2 diabetes mellitus with diabetic polyneuropathy; Z89.512 Acquired absence of left leg below knee; Z79.4 Long term (current) use of insulin; Z79.82 Long term (current) use of aspirin; Z79.899 Other long term (current) drug therapy; Z91.02 Food additives allergy status; Z88.6 Allergy status to analgesic agent
CPT/HCPCS: 15002; 15003; 15100; 15101; A9270; J0330; J0690; J1100; J2405; J2704; J3010; J7030; J2710; J3490

== ENCOUNTER 2019-01-11 06:04 | Inpatient (IN) | payer OTHER ==
[2019-01-11] MEDS ORDERED: metroNIDAZOLE/Normal Saline 500 MG in Premix Bag 1 BAG IV ONE (06:19)
[2019-01-11] MEDS: Sodium Chloride 0.9% 1,000 ML IV SCH ×2 (07:17→15:28)
[2019-01-11] MEDS ORDERED: fentaNYL 250 MCG/5 ML SDV ONE (07:41)
[2019-01-11] MEDS ORDERED: Rocuronium 50 MG/5 ML Vial ONE (07:42)
[2019-01-11] MEDS ORDERED: Ondansetron 4 MG/2 ML SDV ONE (07:42)
[2019-01-11] MEDS ORDERED: Succinylcholine 200 MG/10 ML MDV ONE (07:42)
[2019-01-11] MEDS ORDERED: Propofol 200 MG/20 ML SDV ONE (07:42)
[2019-01-11] MEDS ORDERED: Glycopyrrolate 0.2 MG/ML 5 ML MDV ONE (07:42)
[2019-01-11] MEDS ORDERED: Neostigmine Methylsulfate 1 MG/ML 5 ML Syringe ONE (07:42)
[2019-01-11] MEDS ORDERED: hydrOXYzine HCl 100 MG/2 ML SDV IM PRN (07:46)
[2019-01-11] MEDS ORDERED: Zolpidem 5 MG Tab PO PRN (07:46)
[2019-01-11] MEDS ORDERED: Docusate Sodium 100 MG Cap PO PRN (07:46)
[2019-01-11] MEDS ORDERED: Promethazine 25 MG/ML SDV IM PRN (07:46)
[2019-01-11] MEDS ORDERED: diphenhydrAMINE 50 MG/ML SDV IVPUSH PRN (07:46)
[2019-01-11] MEDS ORDERED: Benzocaine/Cetylpyridinium/Menthol Lozenge MUCMEM PRN (07:46)
[2019-01-11] MEDS ORDERED: Bisacodyl 5 MG Tab PO PRN (07:46)
[2019-01-11] MEDS: ceFAZolin 2 GM in Premix Bag 1 BAG IV ONE ×2 (08:00→13:10)
[2019-01-11] MEDS ORDERED: fentaNYL/Normal Saline 600 MCG/30 ML PCA Vial IV PRN (08:24)
[2019-01-11] MEDS ORDERED: Naloxone 0.4 MG/ML SDV IV PRN (08:24)
[2019-01-11] MEDS ORDERED: ePHEDrine 50 MG/ML SDV ONE (08:24)
[2019-01-11] MEDS ORDERED: Sodium Chloride 0.9% 500 ML ONE (09:30)
[2019-01-11] MEDS ORDERED: fentaNYL 100 MCG/2 ML SDV ONE (10:09)
--- NOTE | 2019-01-11 11:49 | OR ---
DATE OF PROCEDURE: 01/11/2019 PROCEDURE: Left below-knee amputation. COMPLICATIONS: None. ADMISSION DISCHARGE RN: None. PREPROCEDURE DIAGNOSIS: Diabetic with a previous amputation requiring revision. POSTOPERATIVE DIAGNOSIS: Diabetic with a previous amputation requiring revision. COMPLICATION: None. ADMISSION DISCHARGE RN: None. ANESTHETIC: General/local. RISKS: Risks, benefits, alternatives, and limitations including, but not limited to, infection, bleeding, and reoperation explained to the patient. We also discussed the high probability of wound failure due to the patient's ongoing diabetes, edema, and specific healthcare choices he has made. Patient understands these risks and wished to proceed. PROCEDURE IN DETAIL: The patient was placed in supine position. The amputation will be performed in a classic posterior flap type procedure. This was measured out with 2/3rd, 1/3rd circumferential margin for the posterior flap. Once this was marked out, the 15 blade was used to transect the skin. Electrocautery was then used to dissect in combination with Aquamantys. Blood vessel bundles when encountered were suture ligated with 3-0 Vicryl suture. The nerves which were encountered were retracted back, clamped with a Alejandra and subsequently transected. The tibia and fibula were identified and using a periosteal elevator were further mobilized. They were then transected with a [employer] 7 device. The tibia was beveled to decrease pressure on the skin. Rongeur and other devices were used to smooth periosteum edges. An amputation knife was then used to complete the remaining amputation. Once this completed, suture ligating and clip application were used to address blood vessels. Eventually, the blood vessels were all controlled with the tourniquet completely off with respect to pressure. Reconstruction was then performed by using 3-0 and 2-0 Vicryl sutures to approximate the gastrocnemius muscles to cover the bone structures and reapproximate. There was approximately 3 layers of this. Once this was completed, the fascia was then closed with Vicryl sutures in running interrupted fashion. The skin was closed with horizontal mattress Prolene sutures, tavares, and a running 3-0 nylon suture. It was noted the patient had significant edema throughout this entire procedure. However, there was good vascular supply. His lymphedema is chronic in nature and was known preoperatively. A compression dressing was then performed using Mextra, Adaptic, 4x4s, Kerlix, and MAYA's. The patient tolerated the procedure well. Josh Ko MD /[id number]
[2019-01-11] MEDS: Acetaminophen/oxyCODONE 325-10 MG Tab PO PRN ×3 (14:46→22:21)
[2019-01-11] MEDS: Insulin Lispro 100 Unit/ML 3 ML KwikPen SUBCUT SCH (16:42)
[2019-01-11] MEDS ORDERED: Pregabalin 100 MG Cap PO SCH (21:00)
[2019-01-11] MEDS ORDERED: Insulin Glargine,Human Rec. Analog 100 Units/ML 3 ML Pen SUBCUT SCH (21:00)
[2019-01-11] MEDS ORDERED: Simvastatin 20 MG Tab PO SCH (21:00)
[2019-01-11] MEDS: Pregabalin 75 MG Cap PO SCH (22:03)
[2019-01-11] MEDS: Metoprolol Tartrate 25 MG Tab PO SCH (22:04)
[2019-01-12] MEDS: Sodium Chloride 0.9% 1,000 ML IV SCH (06:26)
[2019-01-12 07:42] VITALS: BP 136/72
[2019-01-12] MEDS: Insulin Lispro 100 Unit/ML 3 ML KwikPen SUBCUT SCH (08:35)
[2019-01-12] MEDS: Metoprolol Tartrate 25 MG Tab PO SCH (08:39)
[2019-01-12] MEDS: Pregabalin 75 MG Cap PO SCH (08:55)
[2019-01-12] MEDS ORDERED: Losartan 50 MG Tab PO SCH (09:00)
[2019-01-12] MEDS ORDERED: Aspirin 81 MG Tab.EC PO SCH (09:00)
[2019-01-12] MEDS ORDERED: Insulin Glargine,Human Rec. Analog 100 Units/ML 3 ML Pen SUBCUT SCH (09:00)
[2019-01-12] MEDS ORDERED: Ferrous Sulfate 325 MG Tab PO SCH (09:00)
--- NOTE | 2019-01-12 11:13 | PN ---
DATE OF SERVICE: 01/12/2019 SUBJECTIVE: The patient is doing very well today. Pain is well controlled. No nausea, vomiting, shortness of breath, or chest pain. OBJECTIVE: VITAL SIGNS: Stable. CARDIOVASCULAR: Regular rhythm and rate. RESPIRATORY: Lungs are clear to auscultation bilaterally. EXTREMITIES: Dressings are intact. ASSESSMENT: Status post below-knee amputation. PLAN: The patient will be discharged today. Please see discharge instructions for further details. Josh Ko MD /[id number]
--- NOTE | 2019-01-12 11:19 | DISCH ---
DISCHARGE DIAGNOSIS: Status post left below-knee amputation. HOSPITAL COURSE: A pleasant 68-year-old male who underwent a BKA without problems. Prior to discharge, his pain was well controlled. No nausea, vomiting, shortness of breath, or chest pain. He is tolerating diet and moving his bowels. FOLLOWUP: With Surgery in 7 to 14 days. ACTIVITY: No lifting greater than 30 pounds x30 days. DISPOSITION: General Disposition: The patient is doing quite well. Dressings are intact. He was recommended to stay a few more days; however, he is adamant on discharge today. We discussed risks, benefits, alternatives, and limitations of this plan. His hemoglobin was also stable. I recommended that he typically stay for another day for a repeat hemoglobin; however, he has adamantly declined this. Therefore, we discussed signs and symptoms of anemia. He will follow up with the emergency room as needed.
== END 2019-01-12 09:30 | disposition home or self-care (01) | DRG 475 ==
LOC: JP.SDS 06:04 → JP.SDSSCHI 06:04 → EDSTATUS 07:30 → JP.2SS 07:47
PROVIDERS: ADMIT Surgery; ATTEND Surgery
PROC: 0Y6J0Z1 Detachment at Left Lower Leg, High, Open Approach (ICD-10-PCS; principal; 2019-01-11)
DX: T87.89 Other complications of amputation stump (principal); T86.821 Skin graft (allograft) (autograft) failure; E11.628 Type 2 diabetes mellitus with other skin complications; L98.9 Disorder of the skin and subcutaneous tissue, unspecified; E11.42 Type 2 diabetes mellitus with diabetic polyneuropathy; E11.22 Type 2 diabetes mellitus with diabetic chronic kidney disease; I12.9 Hypertensive chronic kidney disease with stage 1 through stage 4 chronic kidney disease, or unspecified chronic kidney disease; N18.9 Chronic kidney disease, unspecified; Z90.89 Acquired absence of other organs; Z79.4 Long term (current) use of insulin; Z89.512 Acquired absence of left leg below knee; Z79.82 Long term (current) use of aspirin; Z79.899 Other long term (current) drug therapy; Z88.5 Allergy status to narcotic agent; Z88.8 Allergy status to other drugs, medicaments and biological substances
CPT/HCPCS: 36415; 36430; 80048; 82962; 85025; 86850; 86900; 86901; 86920; 86922; A9270-GY; J0330; J0690; J1815; J1815-GY; J2405; J2704; J2710; J3010; J3490; J7030; J7040; P9016